=== PATIENT | female | born 1985 | race Caucasian/White ===

== ENCOUNTER 2017-04-09 14:59 | Emergency (ER) | payer MEDICAID, OTHER ==
[~2017-04-09] VITALS: Ht 165.1 cm; Wt 66.9 kg
[2017-04-09] MEDS ORDERED: TYLE325T5 PO (15:11)
[2017-04-09] MEDS ORDERED: NORCO, ANEXSIA 5/325MG TABLET (HYDROcodone/ACETAMINOPHEN) PO ONE (16:15)
[2017-04-09 17:01] LABS: ADD MANUAL DIFFER YES; MEAN CORPUSCULAR HEMOGLOBIN 30.4 pg (27.0-33.0); MEAN CORPUSCULAR HGB CONC 35.8 g/dl (32.0-36.5); PLATELET COUNT, AUTOMATED 152 k/mm3 (150-450); RED CELL DISTRIBUTION WIDTH 12.1 % (11.5-14.5); WHITE BLOOD COUNT 7.7 K/mm3 (4.0-10.0)
[2017-04-09 17:04] LABS: ANION GAP 8 MEQ/L (8-16); BLOOD UREA NITROGEN 10 MG/DL (7-18); CALCIUM LEVEL 9.2 MG/DL (8.5-10.1); CARBON DIOXIDE LEVEL 26 MEQ/L (21-32); CHLORIDE LEVEL 98 MEQ/L (98-107); CREATININE FOR GFR 0.69 MG/DL (0.55-1.02); GLOMERULAR FILTRATION RATE > 60.0 (>60); GLUCOSE, FASTING 97 MG/DL (70-105); POTASSIUM SERUM 3.4 MEQ/L (3.5-5.1); SODIUM LEVEL 132 MEQ/L (136-145)
[2017-04-09 17:22] VITALS: BP 96/57
[2017-04-09 17:22] LABS: EOSINOPHILS 2 % (0-5)
== END 2017-04-09 17:29 | disposition home or self-care (01) ==
LOC: M ED 14:59
DX: R51 Headache (principal); R53.83 Other fatigue; R10.30 Lower abdominal pain, unspecified; M54.5 Low back pain

== ENCOUNTER 2017-04-25 14:42 | Emergency (ER) | payer MEDICAID, OTHER ==
[~2017-04-25] VITALS: Ht 165.1 cm; Wt 65.0 kg
[~2017-04-25 14:42] MED LIST: TYLE325T5 PO
[2017-04-25 14:43] VITALS: BP 100/72
[2017-04-25] MEDS ORDERED: NAPR500T PO (16:09)
[2017-04-25] MEDS ORDERED: GENT3OPD OD (16:09)
[2017-04-25] MEDS ORDERED: NAPROXEN 250 MG TAB PO ONE (16:15)
[2017-04-25] MEDS ORDERED: GENTAMICIN 0.3% OPHTH SOL 5 ML BTL OU ONE (16:15)
== END 2017-04-25 17:11 | disposition home or self-care (01) ==
LOC: M ED 14:42
DX: B34.9 Viral infection, unspecified (principal); H10.33 Unspecified acute conjunctivitis, bilateral

== ENCOUNTER 2017-09-12 18:33 | Emergency (ER) | payer MEDICAID, OTHER ==
[2017-09-12] MEDS: IBUPROFEN 600 MG TAB PO ×2 (20:06)
== END 2017-09-12 22:12 | disposition home or self-care (01) ==
LOC: M ED 18:33
DX: M25.462 Effusion, left knee (principal); J45.909 Unspecified asthma, uncomplicated
CPT/HCPCS: 73564

== ENCOUNTER 2019-09-21 11:22 | Emergency (ER) | payer MEDICAID, SELFPAY ==
[~2019-09-21] VITALS: Ht 165.1 cm; Wt 72.1 kg
[~2019-09-21 11:22] MED LIST changes: +GENT0.3S36 OD; +NAPR-837 PO
--- NOTE | 2019-09-21 12:29 | REP ---
Right lower extremity Duplex Doppler venous ultrasound: Real time compression and duplex Doppler interrogation of the right lower extremity deep venous system is performed. The right common femoral, superficial femoral and popliteal veins are fully compressible with transducer pressure and demonstrate normal spontaneous and phasic flow, without evidence of deep venous thrombosis. Impression: No evidence of deep venous thrombosis of the right lower extremity femoral popliteal venous system. Note is made of a complex fluid collection posteriorly extending into the upper calf, 9.4 x 2.5 x 3.4 cm. Electronically Signed by Mono Gomez MD 09/21/2019 12:20 P
[2019-09-21 14:13] LABS: BASO # 0.1 10^3/uL (0.0-0.2); BASO % 0.5 % (0.0-1.0); EOS # 0.1 10^3/uL (0.0-0.5); EOS % 1.2 % (0.0-3.0); HEMATOCRIT 45.7 % (36.0-47.0); HEMOGLOBIN 14.8 g/dl (12.0-15.5); LYMPH # 2.2 10^3/uL (1.5-5.0); MEAN CORPUSCULAR HEMOGLOBIN 27.9 pg (27.0-33.0); MEAN CORPUSCULAR HGB CONC 32.4 g/dl (32.0-36.5); MEAN CORPUSCULAR VOLUME 86.1 fl (80.0-96.0); MONO # 0.4 10^3/uL (0.0-0.8); MONO % 3.8 % (0.0-5.0); NEUTROPHILS # 7.6 10^3/uL (1.5-8.5); NEUTROPHILS % 72.9 % (36.0-66.0); PLATELET COUNT, AUTOMATED 306 10^3/uL (150-450); RED BLOOD COUNT 5.31 10^6/uL (4.00-5.40); WHITE BLOOD COUNT 10.4 10^3/uL (4.0-10.0)
[2019-09-21 14:34] LABS: BLOOD UREA NITROGEN 10 MG/DL (7-18); C REACTIVE PROTEIN QUANTITATIV 0.79 MG/DL (0.00-0.30); CALCIUM LEVEL 9.6 MG/DL (8.5-10.1); CARBON DIOXIDE LEVEL 24 MEQ/L (21-32); CHLORIDE LEVEL 107 MEQ/L (98-107); CREATININE FOR GFR 0.77 MG/DL (0.55-1.30); GLOMERULAR FILTRATION RATE > 60.0 (>60); GLUCOSE, FASTING 89 MG/DL (70-100); POTASSIUM SERUM 4.4 MEQ/L (3.5-5.1); SODIUM LEVEL 138 MEQ/L (136-145)
[2019-09-21 14:43] LABS: ERYTHROCYTE SEDIMENTATION RATE 25 mm/hr (0-20)
[2019-09-21] MEDS ORDERED: BACT800T5 PO (15:11)
[2019-09-21 15:17] VITALS: BP 124/68
--- NOTE | 2019-09-22 18:41 | ED PDOC ---
Post-Departure Follow-Up tried to contact pt to check on status x 2. answering machine x 2. left message . AGNES MORENO PA-C Sep 22, 2019 18:41
== END 2019-09-21 15:18 | disposition home or self-care (01) ==
LOC: M ED 11:22
DX: L03.115 Cellulitis of right lower limb (principal); J45.909 Unspecified asthma, uncomplicated

== ENCOUNTER 2019-09-23 20:41 | Emergency (ER) | payer SELFPAY ==
[~2019-09-23] VITALS: Ht 165.1 cm; Wt 69.7 kg
[~2019-09-23 20:41] MED LIST changes: +BACT800T5 PO
[2019-09-23 20:42] VITALS: BP 114/75
== END 2019-09-23 21:47 | disposition home or self-care (01) ==
LOC: M ED 20:41
DX: F41.8 Other specified anxiety disorders (principal); L98.8 Other specified disorders of the skin and subcutaneous tissue; Z87.891 Personal history of nicotine dependence

== ENCOUNTER 2019-10-24 11:33 | Emergency (ER) | payer OTHER, SELFPAY ==
[~2019-10-24] VITALS: Ht 165.1 cm; Wt 65.8 kg
[2019-10-24 13:28] LABS: BASO % 0.3 % (0.0-1.0); HEMATOCRIT 45.1 % (36.0-47.0); HEMOGLOBIN 14.9 g/dl (12.0-15.5); LYMPH # 0.7 10^3/uL (1.5-5.0); MEAN CORPUSCULAR HEMOGLOBIN 28.1 pg (27.0-33.0); MEAN CORPUSCULAR VOLUME 85.1 fl (80.0-96.0); MONO # 0.1 10^3/uL (0.0-0.8); NEUTROPHILS # 7.1 10^3/uL (1.5-8.5); NEUTROPHILS % 89.4 % (36.0-66.0); PLATELET COUNT, AUTOMATED 278 10^3/uL (150-450)
[2019-10-24 14:04] VITALS: BP 121/73
== END 2019-10-24 14:05 | disposition home or self-care (01) ==
LOC: M ED 11:33
DX: R20.8 Other disturbances of skin sensation (principal); Z88.2 Allergy status to sulfonamides

== ENCOUNTER → 2019-11-04 | Outpatient (REF) | payer OTHER ==
[2019-11-04 17:25] LABS: BASO # 0.1 10^3/uL (0.0-0.2); BASO % 0.7 % (0.0-1.0); EOS # 0.1 10^3/uL (0.0-0.5); EOS % 1.8 % (0.0-3.0); HEMATOCRIT 43.1 % (36.0-47.0); HEMOGLOBIN 14.7 g/dl (12.0-15.5); LYMPH % 29.6 % (24.0-44.0); MEAN CORPUSCULAR HEMOGLOBIN 29.2 pg (27.0-33.0); MEAN CORPUSCULAR HGB CONC 34.1 g/dl (32.0-36.5); MEAN CORPUSCULAR VOLUME 85.5 fl (80.0-96.0); MONO # 0.5 10^3/uL (0.0-0.8); MONO % 7.3 % (0.0-5.0); NEUTROPHILS # 4.1 10^3/uL (1.5-8.5); NEUTROPHILS % 60.3 % (36.0-66.0); PLATELET COUNT, AUTOMATED 239 10^3/uL (150-450); RED BLOOD COUNT 5.04 10^6/uL (4.00-5.40); WHITE BLOOD COUNT 6.9 10^3/uL (4.0-10.0)
[2019-11-04 17:43] LABS: HEMOGLOBIN A1c 4.4 %
[2019-11-04 17:59] LABS: ALBUMIN 4.2 GM/DL (3.2-5.2); ALT/SGPT 14 U/L (12-78); BLOOD UREA NITROGEN 7 MG/DL (7-18); CALCIUM LEVEL 9.4 MG/DL (8.5-10.1); CARBON DIOXIDE LEVEL 28 MEQ/L (21-32); CHLORIDE LEVEL 109 MEQ/L (98-107); CHOLESTEROL LEVEL 171 MG/DL (<200); CREATININE FOR GFR 0.84 MG/DL (0.55-1.30); GLOMERULAR FILTRATION RATE > 60.0 (>60); GLUCOSE, FASTING 84 MG/DL (70-100); HDL CHOLESTEROL 45 MG/DL (>40); LDL CHOLESTEROL 106 MG/DL (<100); NON-HDL-C 126 MG/DL; POTASSIUM SERUM 3.8 MEQ/L (3.5-5.1); SODIUM LEVEL 140 MEQ/L (136-145); TOTAL PROTEIN 7.9 GM/DL (6.4-8.2); TRIGLYCERIDES LEVEL 99 MG/DL (<150)
[2019-11-04 18:02] LABS: TOTAL 25(OH) VITAMIN D 16.8 NG/ML (30.0-100.0)
== END ==
LOC: M LAB REF 16:44
PROVIDERS: ATTEND Nurse Practitioner Family
DX: Z13.9 Encounter for screening, unspecified (principal); S60.229A Contusion of unspecified hand, initial encounter; L03.115 Cellulitis of right lower limb; J02.8 Acute pharyngitis due to other specified organisms; S80.10XA Contusion of unspecified lower leg, initial encounter; Y92.9 Unspecified place or not applicable; Y93.9 Activity, unspecified; Y99.9 Unspecified external cause status

== ENCOUNTER → 2019-12-08 | Outpatient (REF) | payer OTHER ==
[2019-12-08 19:32] LABS: BASO % 0.4 % (0.0-1.0); EOS # 0.1 10^3/uL (0.0-0.5); HEMATOCRIT 43.9 % (36.0-47.0); HEMOGLOBIN 14.8 g/dl (12.0-15.5); LYMPH # 2.2 10^3/uL (1.5-5.0); LYMPH % 22.2 % (24.0-44.0); MEAN CORPUSCULAR HEMOGLOBIN 28.6 pg (27.0-33.0); MEAN CORPUSCULAR HGB CONC 33.7 g/dl (32.0-36.5); MEAN CORPUSCULAR VOLUME 84.9 fl (80.0-96.0); MONO # 0.6 10^3/uL (0.0-0.8); MONO % 5.5 % (0.0-5.0); NEUTROPHILS # 7.1 10^3/uL (1.5-8.5); NEUTROPHILS % 70.6 % (36.0-66.0); PLATELET COUNT, AUTOMATED 288 10^3/uL (150-450); RED BLOOD COUNT 5.17 10^6/uL (4.00-5.40); WHITE BLOOD COUNT 10.1 10^3/uL (4.0-10.0)
[2019-12-08 19:54] LABS: MONO REFLEX EBV COMP NEGATIVE (NEGATIVE)
[2019-12-11 00:06] LABS: EBV AB TO NUCLEAR ANTIGEN 63.7 U/mL (0.0-17.9); EBV VIRAL CAPSID AG IgM <36.0 U/mL (0.0-35.9)
== END ==
LOC: M LAB REF 19:02
PROVIDERS: ATTEND Nurse Practitioner Family
DX: J02.9 Acute pharyngitis, unspecified (principal)

== ENCOUNTER 2019-12-16 19:32 | Emergency (ER) | payer OTHER ==
[~2019-12-16] VITALS: Ht 165.1 cm; Wt 62.3 kg
[2019-12-16] MEDS ORDERED: VITA50005 (19:38)
[2019-12-16] MEDS ORDERED: CEPH500C (19:38)
[2019-12-16] MEDS ORDERED: hydrOXYzine 25 MG TAB PO STA (20:03)
[2019-12-16 20:30] LABS: BASO # 0.1 10^3/uL (0.0-0.2); BASO % 0.7 % (0.0-1.0); EOS # 0.1 10^3/uL (0.0-0.5); EOS % 1.8 % (0.0-3.0); HEMATOCRIT 43.9 % (36.0-47.0); HEMOGLOBIN 15.3 g/dl (12.0-15.5); LYMPH # 2.1 10^3/uL (1.5-5.0); LYMPH % 29.8 % (24.0-44.0); MEAN CORPUSCULAR HEMOGLOBIN 29.6 pg (27.0-33.0); MEAN CORPUSCULAR HGB CONC 34.9 g/dl (32.0-36.5); MEAN CORPUSCULAR VOLUME 84.9 fl (80.0-96.0); MONO # 0.4 10^3/uL (0.0-0.8); MONO % 5.9 % (0.0-5.0); NEUTROPHILS # 4.4 10^3/uL (1.5-8.5); NEUTROPHILS % 61.7 % (36.0-66.0); PLATELET COUNT, AUTOMATED 287 10^3/uL (150-450); RED BLOOD COUNT 5.17 10^6/uL (4.00-5.40); WHITE BLOOD COUNT 7.2 10^3/uL (4.0-10.0)
[2019-12-16 21:07] LABS: BLOOD UREA NITROGEN 9 MG/DL (7-18); CARBON DIOXIDE LEVEL 29 MEQ/L (21-32); CHLORIDE LEVEL 107 MEQ/L (98-107); CK-MB VALUE MASS < 1.0 NG/ML (<3.6); CPK CREATINE PHOSPHOKINASE 79 U/L (26-192); CREATININE FOR GFR 0.81 MG/DL (0.55-1.30); GLOMERULAR FILTRATION RATE > 60.0 (>60); GLUCOSE, FASTING 100 MG/DL (70-100); MAGNESIUM LEVEL 2.2 MG/DL (1.8-2.4); MB/CK RELATIVE INDEX 1.27 (< OR =4); POTASSIUM SERUM 3.8 MEQ/L (3.5-5.1); SODIUM LEVEL 138 MEQ/L (136-145); TROPONIN I < 0.02 NG/ML (< 0.10)
[2019-12-16] MEDS ORDERED: HYDR-3363 PO (21:31)
[2019-12-16 21:43] VITALS: BP 134/79
--- NOTE | 2019-12-17 14:27 | ECGEPIP ---
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
== END 2019-12-16 21:47 | disposition home or self-care (01) ==
LOC: M ED 19:32
DX: F41.1 Generalized anxiety disorder (principal); J45.909 Unspecified asthma, uncomplicated; Z88.1 Allergy status to other antibiotic agents; Z88.2 Allergy status to sulfonamides

== ENCOUNTER → 2019-12-29 | Outpatient (REF) | payer OTHER ==
[~2019-12-29] MED LIST changes: +CEPH500C; +HYDR-3363 PO; +VITA50005
[2019-12-29 14:10] LABS: BASO # 0.1 10^3/uL (0.0-0.2); BASO % 0.6 % (0.0-1.0); EOS # 0.2 10^3/uL (0.0-0.5); EOS % 2.6 % (0.0-3.0); HEMATOCRIT 40.1 % (36.0-47.0); HEMOGLOBIN 13.7 g/dl (12.0-15.5); MEAN CORPUSCULAR HEMOGLOBIN 29.8 pg (27.0-33.0); MEAN CORPUSCULAR HGB CONC 34.2 g/dl (32.0-36.5); MEAN CORPUSCULAR VOLUME 87.4 fl (80.0-96.0); MONO # 0.6 10^3/uL (0.0-0.8); MONO % 7.3 % (0.0-5.0); NEUTROPHILS # 4.4 10^3/uL (1.5-8.5); NEUTROPHILS % 53.1 % (36.0-66.0); PLATELET COUNT, AUTOMATED 243 10^3/uL (150-450); RED BLOOD COUNT 4.59 10^6/uL (4.00-5.40); WHITE BLOOD COUNT 8.2 10^3/uL (4.0-10.0)
[2019-12-29 14:25] LABS: ALBUMIN 3.7 GM/DL (3.2-5.2); ALT/SGPT 11 U/L (12-78); BILIRUBIN,TOTAL 0.9 MG/DL (0.2-1.0); BLOOD UREA NITROGEN 12 MG/DL (7-18); CALCIUM LEVEL 9.1 MG/DL (8.5-10.1); CARBON DIOXIDE LEVEL 28 MEQ/L (21-32); CHLORIDE LEVEL 107 MEQ/L (98-107); CHOLESTEROL LEVEL 152 MG/DL (<200); GLOMERULAR FILTRATION RATE > 60.0 (>60); GLUCOSE, FASTING 83 MG/DL (70-100); HDL CHOLESTEROL 51 MG/DL (>40); LDL CHOLESTEROL 84 MG/DL (<100); NON-HDL-C 101 MG/DL; POTASSIUM SERUM 3.9 MEQ/L (3.5-5.1); SODIUM LEVEL 139 MEQ/L (136-145); TOTAL PROTEIN 7.2 GM/DL (6.4-8.2); TRIGLYCERIDES LEVEL 84 MG/DL (<150)
[2019-12-29 14:26] LABS: TOTAL 25(OH) VITAMIN D 47.6 NG/ML (30.0-100.0)
== END ==
LOC: M LAB REF 12:47
PROVIDERS: ATTEND Nurse Practitioner Family
DX: Z13.9 Encounter for screening, unspecified (principal); E78.5 Hyperlipidemia, unspecified; E55.9 Vitamin D deficiency, unspecified

== ENCOUNTER → 2020-01-24 | Outpatient (REF) | payer OTHER ==
[2020-01-24 12:27] LABS: RHEUMATOID FACTOR QUANT < 10.0 IU/ML (<15.0); URIC ACID 2.9 MG/DL (2.6-6.0)
[2020-01-25 14:11] LABS: ANTINUCLEAR ANTIBODIES DIRECT Negative (Negative)
== END ==
LOC: M LAB REF 11:58
PROVIDERS: ATTEND Nurse Practitioner Family
DX: J02.9 Acute pharyngitis, unspecified (principal); R20.8 Other disturbances of skin sensation; E55.9 Vitamin D deficiency, unspecified; J02.0 Streptococcal pharyngitis; Z13.9 Encounter for screening, unspecified

== ENCOUNTER 2020-02-16 22:18 | Emergency (ER) | payer OTHER ==
[~2020-02-16] VITALS: Ht 165.1 cm; Wt 64.8 kg
[2020-02-16 22:19] VITALS: BP 131/81
== END 2020-02-16 23:13 | disposition home or self-care (01) ==
LOC: M ED 22:18
DX: F41.1 Generalized anxiety disorder (principal); Z88.2 Allergy status to sulfonamides; J45.909 Unspecified asthma, uncomplicated; Z79.899 Other long term (current) drug therapy

== ENCOUNTER → 2020-03-01 | Outpatient (CLI) | payer OTHER ==
[~2020-03-01] MED LIST changes: +LILL1TAB PO
--- NOTE | 2020-03-01 16:17 | REP ---
KNEE: REASON: Pain. COMPARISON: 09/12/2017 FINDINGS: The compartments are symmetric and relatively well maintained. There is no acute fracture or destructive osseous lesion. No change. Any swelling seen before has resolved. Electronically Signed by Brady Deluca DO 03/01/2020 05:07 P
== END ==
LOC: M RAD 13:28
PROVIDERS: ATTEND Nurse Practitioner Family
DX: M25.562 Pain in left knee (principal)

== ENCOUNTER → 2020-03-01 | Outpatient (CLI) | payer OTHER ==
--- NOTE | 2020-03-01 13:51 | REP ---
REASON: History of periodontal abscess having neck pain and swelling. Ultrasonography of the neck soft tissues shows multiple (too numerous to count or individually assess) solid nodules ranging in size from short access dimension of 5 mm to a long axis dimension of 1.9 cm. The solid nodules, for the most part appear to have reniform shape, peripheral hypo-echogenicity, and central echogenicity although the larger nodules are more oval in shape. IMPRESSION: Lymphadenopathy is suspected contrast enhanced neck CT is recommended as it remains the gold standard for imaging neck masses and lymphadenopathy.
== END ==
LOC: M WHC 09:59
PROVIDERS: ATTEND Family Medicine
DX: J36 Peritonsillar abscess (principal); R22.1 Localized swelling, mass and lump, neck

== ENCOUNTER → 2020-03-23 | Outpatient (REF) | payer OTHER ==
[~2020-03-23] MED LIST changes: -LILL1TAB PO
== END ==
LOC: M LAB REF 15:30
PROVIDERS: ATTEND Nurse Practitioner Family
DX: Z12.4 Encounter for screening for malignant neoplasm of cervix (principal)

== ENCOUNTER → 2020-04-03 | Outpatient (CLI) | payer OTHER ==
[~2020-04-03] MED LIST changes: +ISOVUE-370 76% 100ML VIAL As Ordered ONE
--- NOTE | 2020-04-03 16:54 | REPVR ---
PROCEDURE INFORMATION: Exam: CT Neck With Contrast Exam date and time: 04/03/2020 4:28 PM Age: 34 years old Clinical indication: Mass, lump, or swelling in neck; Patient HX: Anterior general swelling; Additional info: Localized swelling/mass/lump TECHNIQUE: Imaging protocol: Computed tomography images of the neck with intravenous contrast. Radiation optimization: All CT scans at this facility use at least one of these dose optimization techniques: automated exposure control; mA and/or kV adjustment per patient size (includes targeted exams where dose is matched to clinical indication); or iterative reconstruction. Contrast material: ISOVUE 370; Contrast volume: 75 ml; Contrast route: INTRAVENOUS (IV); COMPARISON: US SOFT TISSUE HEAD AND NECK 03/01/2020 10:14 AM FINDINGS: Nasopharynx: Unremarkable. Oropharynx: Unremarkable. No significant tonsillar enlargement. Hypopharynx: Unremarkable. Larynx: Unremarkable. Normal epiglottis. Retropharyngeal space: Normal. No retropharyngeal abscess. Submandibular/Parotid glands: Normal. Glands are normal in size. Thyroid: Normal. No enlarged or calcified nodules. Lymph nodes: There are multiple small shotty lymph nodes in the anterior and posterior cervical triangles bilaterally, but these are small and there is no significant lymphadenopathy seen in the neck or upper chest. Trachea: Visualized trachea is unremarkable. Lungs: Unremarkable as visualized. Bones/joints: Unremarkable. No acute fracture. Soft tissues: No significant soft tissue abnormality is seen in the neck. IMPRESSION: 1. No significant soft tissue abnormality is seen in the neck. 2. There are multiple small shotty lymph nodes in the anterior and posterior cervical triangles bilaterally, but these are small and there is no significant lymphadenopathy seen in the neck or upper chest. Electronically signed by: Cayden Romano On 04/03/2020 16:54:04 PM
== END ==
LOC: M RAD 16:06
PROVIDERS: ATTEND Family Medicine
DX: R22.1 Localized swelling, mass and lump, neck (principal)
CPT/HCPCS: 70491; Q9967

== ENCOUNTER → 2020-07-11 | Outpatient (REF) | payer OTHER ==
[~2020-07-11] MED LIST changes: -ISOVUE-370 76% 100ML VIAL As Ordered ONE
== END ==
LOC: M SFHCWAGY 17:02
PROVIDERS: ATTEND Advanced Practice Midwife
DX: Z12.4 Encounter for screening for malignant neoplasm of cervix (principal); Z01.419 Encounter for gynecological examination (general) (routine) without abnormal findings

== ENCOUNTER → 2020-09-06 | Outpatient (CLI) | payer OTHER ==
[2020-09-06 13:16] LABS: FREE T4 1.11 NG/DL (0.76-1.46); THYROID STIMULATING HORMONE 0.874 uIU/ML (0.358-3.740)
== END ==
LOC: M LAB 12:01
PROVIDERS: ATTEND Nurse Practitioner Family
DX: E04.2 Nontoxic multinodular goiter (principal)

== ENCOUNTER → 2020-09-12 | Outpatient (REF) | payer OTHER ==
[~2020-09-12] MED LIST changes: +LILL1TAB PO
== END ==
LOC: M LAB REF 17:03
PROVIDERS: ATTEND Internal Medicine Endocrinology, Diabetes & Metabolism
DX: E04.1 Nontoxic single thyroid nodule (principal)

== ENCOUNTER 2020-10-06 20:34 | Emergency (ER) | payer OTHER ==
[~2020-10-06] VITALS: Ht 165.1 cm; Wt 71.6 kg
[~2020-10-06 20:34] MED LIST changes: -LILL1TAB PO
[2020-10-06] MEDS ORDERED: LILL1TAB PO (20:46)
[2020-10-06 22:18] VITALS: BP 121/73
== END 2020-10-06 22:21 | disposition home or self-care (01) ==
LOC: M ED 20:34
DX: R09.89 Other specified symptoms and signs involving the circulatory and respiratory systems (principal); J45.909 Unspecified asthma, uncomplicated; Z85.850 Personal history of malignant neoplasm of thyroid; Z79.3 Long term (current) use of hormonal contraceptives; Z88.1 Allergy status to other antibiotic agents; Z88.2 Allergy status to sulfonamides

== ENCOUNTER 2020-12-08 11:07 | Emergency (ER) | payer OTHER ==
[~2020-12-08] VITALS: Ht 165.1 cm; Wt 59.1 kg
[~2020-12-08 11:07] MED LIST changes: +LILL1TAB PO
[2020-12-08] MEDS ORDERED: NITR100C2 PO (11:40)
[2020-12-08] MEDS ORDERED: NS 1,000 ML IV ONE (11:45)
[2020-12-08 11:46] LABS: BASO # 0.1 10^3/uL (0.0-0.2); BASO % 1.1 % (0.0-1.0); EOS # 0.9 10^3/uL (0.0-0.5); EOS % 11.5 % (0.0-3.0); HEMATOCRIT 42.6 % (36.0-47.0); HEMOGLOBIN 14.9 g/dl (12.0-15.5); LYMPH # 2.2 10^3/uL (1.5-5.0); LYMPH % 27.7 % (24.0-44.0); MEAN CORPUSCULAR HEMOGLOBIN 29.5 pg (27.0-33.0); MEAN CORPUSCULAR VOLUME 84.4 fl (80.0-96.0); MONO # 0.6 10^3/uL (0.0-0.8); MONO % 7.8 % (2.0-8.0); NEUTROPHILS # 4.2 10^3/uL (1.5-8.5); NEUTROPHILS % 51.7 % (36.0-66.0); PLATELET COUNT, AUTOMATED 259 10^3/uL (150-450); RED BLOOD COUNT 5.05 10^6/uL (4.00-5.40); WHITE BLOOD COUNT 8.1 10^3/uL (4.0-10.0)
[2020-12-08] MEDS ORDERED: ISOVUE-370 76% 100ML VIAL As Ordered ONE (12:12)
[2020-12-08 12:35] LABS: ALBUMIN 4.4 GM/DL (3.2-5.2); BILIRUBIN,DIRECT 0.2 MG/DL (0.0-0.2); TOTAL PROTEIN 7.8 GM/DL (6.4-8.2)
--- NOTE | 2020-12-08 12:50 | REP ---
INDICATION: abd/flank pain--diffuse. dysuria-thyroid cancer. COMPARISON: None. TECHNIQUE: Abdomen/pelvis CT with IV contrast, without bowel CONTRAST: IV contrast, no bowel contrast. FINDINGS: Within the visualized lower lung abbott there is a 7 mm nodule partially imaged in the superior most slice, likely in the anterior segment of the right lower lobe. There are no infiltrates or pleural effusions. Follow-up chest CT is recommended for further evaluation. The hepatic parenchyma, gallbladder, pancreas and spleen are unremarkable. The adrenals are unremarkable. There are no renal calculi. There is no hydronephrosis. There is no perinephric stranding. The renal cortices enhance normally. No renal solid or cystic masses are identified. No CT evidence of pyelonephritis. The abdominal aorta is unremarkable. There is no periaortic adenopathy or mass. There is no bowel distention or obstruction. The mesentery is unremarkable. Pelvis: The appendix is unremarkable. There is an involuting follicle in the right adnexa measuring up to 18 mm. The right adnexa is unremarkable. There is no pelvic ascites. The bladder is unremarkable. The pelvic bowel loops are unremarkable. IMPRESSION: There is an 18 mm involuting follicle in the right adnexa. The kidneys are unremarkable by CT. The bladder is unremarkable by CT. There is no ascites, adenopathy or mass. No bowel distention or obstruction. There is a 7 mm nodule partially images and is superior most image in the anterior segment of the right lower lobe. I would recommend chest CT for follow up of this finding. <Electronically signed by Mono Rausch > 12/08/20 [id number]
[2020-12-08] MEDS ORDERED: KETOROLAC 30 MG/ML 1ML VIAL IV ONE (13:45)
[2020-12-08] MEDS ORDERED: cefTRIAXone SOD 500 MG in D5W MINI-BAG PLUS 50 ML IV ONE (15:20)
[2020-12-08] MEDS ORDERED: KETO10TAB PO (15:22)
[2020-12-08] MEDS ORDERED: DOXY-350 PO (15:22)
[2020-12-08 16:02] VITALS: BP 107/62
[2020-12-08 16:13] LABS: CHLAMYDIA DNA AMPLIFICATION NEGATIVE (NEGATIVE); GC DNA AMPLIFICATION NEGATIVE (NEGATIVE)
--- NOTE | 2020-12-11 12:29 | ED PDOC ---
Post-Departure Follow-Up ct abd/p faxed to t[facility]cker for fu Jolanta Shaver MD Dec 11, 2020 12:29
== END 2020-12-08 16:36 | disposition home or self-care (01) ==
LOC: M ED 11:07
DX: N73.9 Female pelvic inflammatory disease, unspecified (principal); Z79.899 Other long term (current) drug therapy; Z88.1 Allergy status to other antibiotic agents; Z88.2 Allergy status to sulfonamides
CPT/HCPCS: 36415; 74177; 80047; 80076; 81001; 83690; 84702; 85025; 87086; 87210; 87491; 87591; 96361; 96365; 96375; 99284; J0696; J1885; Q9967

== ENCOUNTER 2020-12-26 23:54 | Emergency (ER) | payer OTHER ==
[~2020-12-26] VITALS: Ht 165.1 cm; Wt 66.9 kg
[~2020-12-26 23:54] MED LIST changes: +DOXY-350 PO; +KETO10TAB PO; +NITR100C2 PO
[2020-12-27] MEDS ORDERED: ALBU8.5H INH (00:03)
[2020-12-27] MEDS ORDERED: guaiFENesin/CODEINE SYRUP 5 ML UDC PO ONE (01:40)
[2020-12-27] MEDS ORDERED: predniSONE 20 MG TAB PO ONE (01:40)
[2020-12-27] MEDS ORDERED: BENZONATATE 100 MG CAP PO ONE (01:40)
[2020-12-27 01:44] VITALS: BP 113/63
[2020-12-27] MEDS ORDERED: PRED20TA PO (02:20)
[2020-12-27] MEDS ORDERED: GUAI1SOL7 PO (02:20)
[2020-12-27] MEDS ORDERED: TESS100C PO (02:20)
--- NOTE | 2020-12-27 02:28 | REPVR ---
PROCEDURE INFORMATION: Exam: XR Chest Exam date and time: 12/27/2020 1:32 AM Age: 35 years old Clinical indication: Shortness of breath TECHNIQUE: Imaging protocol: XR of the chest. Views: 2 views. COMPARISON: No relevant prior studies available. FINDINGS: Lungs: Unremarkable. No consolidation. Pleural spaces: Unremarkable. No pleural effusion. No pneumothorax. Heart/Mediastinum: Unremarkable. No cardiomegaly. Bones/joints: Unremarkable. IMPRESSION: Negative chest. Electronically signed by: Tony Baig On 12/27/2020 02:29:19 AM
== END 2020-12-27 02:41 | disposition home or self-care (01) ==
LOC: M ED 23:54
DX: J45.901 Unspecified asthma with (acute) exacerbation (principal); Z88.1 Allergy status to other antibiotic agents; Z88.2 Allergy status to sulfonamides; Z85.850 Personal history of malignant neoplasm of thyroid

== ENCOUNTER → 2021-02-16 | Outpatient (CLI) | payer OTHER ==
[~2021-02-16] MED LIST changes: +ALBU8.5H INH; +GUAI1SOL7 PO; +PRED20TA PO; +TESS100C PO
== END ==
LOC: M LABSMTC 13:23
PROVIDERS: ATTEND Family Medicine
DX: Z20.822 Contact with and (suspected) exposure to COVID-19 (principal)
CPT/HCPCS: C9803; U0003

== ENCOUNTER → 2021-03-23 | Outpatient (CLI) | payer OTHER ==
[~2021-03-23] MED LIST changes: +ERGO500029; -VITA50005
[2021-03-23 17:24] LABS: FREE T4 0.99 NG/DL (0.76-1.46); THYROID STIMULATING HORMONE 3.34 uIU/ML (0.358-3.740)
== END ==
LOC: M LAB 15:39
PROVIDERS: ATTEND Nurse Practitioner Family
DX: E04.2 Nontoxic multinodular goiter (principal)

== ENCOUNTER 2021-04-19 02:03 | Emergency (ER) | payer OTHER ==
[~2021-04-19] VITALS: Ht 165.1 cm; Wt 67.9 kg
[2021-04-19 05:47] LABS: ALBUMIN 4.5 GM/DL (3.2-5.2); ALT/SGPT 21 U/L (12-78); BILIRUBIN,TOTAL 0.5 MG/DL (0.2-1.0); BLOOD UREA NITROGEN 10 MG/DL (7-18); CALCIUM LEVEL 9.4 MG/DL (8.5-10.1); CARBON DIOXIDE LEVEL 25 MEQ/L (21-32); CHLORIDE LEVEL 108 MEQ/L (98-107); CK-MB VALUE MASS < 1.0 NG/ML (<3.6); CPK CREATINE PHOSPHOKINASE 174 U/L (26-192); CREATININE FOR GFR 0.69 MG/DL (0.55-1.30); FREE T4 0.94 NG/DL (0.76-1.46); GLOMERULAR FILTRATION RATE > 60.0 (>60); GLUCOSE, FASTING 82 MG/DL (70-100); HCG, SERUM QUANTITATIVE < 1.0 MIU/ML; MB/CK RELATIVE INDEX 0.57 (< OR =4); POTASSIUM SERUM 4.4 MEQ/L (3.5-5.1); SODIUM LEVEL 140 MEQ/L (136-145); TOTAL PROTEIN 8.5 GM/DL (6.4-8.2); TROPONIN I < 0.02 NG/ML (< 0.10)
[2021-04-19 06:07] LABS: BASO # 0.1 10^3/uL (0.0-0.2); BASO % 0.6 % (0.0-1.0); EOS # 0.3 10^3/uL (0.0-0.5); EOS % 2.7 % (0.0-3.0); HEMATOCRIT 42.2 % (36.0-47.0); HEMOGLOBIN 14.4 g/dl (12.0-15.5); LYMPH # 3.5 10^3/uL (1.5-5.0); LYMPH % 37.6 % (24.0-44.0); MEAN CORPUSCULAR HEMOGLOBIN 29.4 pg (27.0-33.0); MEAN CORPUSCULAR HGB CONC 34.1 g/dl (32.0-36.5); MEAN CORPUSCULAR VOLUME 86.1 fl (80.0-96.0); MONO # 0.6 10^3/uL (0.0-0.8); MONO % 5.9 % (2.0-8.0); PLATELET COUNT, AUTOMATED 271 10^3/uL (150-450); WHITE BLOOD COUNT 9.4 10^3/uL (4.0-10.0)
[2021-04-19] MEDS ORDERED: ISOVUE-370 76% 100ML VIAL As Ordered ONE (06:53)
[2021-04-19 08:33] LABS: CK-MB VALUE MASS < 1.0 NG/ML (<3.6); CPK CREATINE PHOSPHOKINASE 111 U/L (26-192); TROPONIN I < 0.02 NG/ML (< 0.10)
[2021-04-19 09:02] LABS: THYROGLOBULIN ANTIBODY < 15.0 U/ML (<60.0)
[2021-04-19 09:10] VITALS: BP 120/69
[2021-04-20 10:12] LABS: THRYOGLOBULIN ANTIBODIES (ATA) < 1.0 IU/mL (0.0-0.9); THYROGLOBULIN QUANTITATIVE 6.9 ng/mL (1.5-38.5)
== END 2021-04-19 09:32 | disposition home or self-care (01) ==
LOC: M ED 02:03
DX: R07.9 Chest pain, unspecified (principal); J45.909 Unspecified asthma, uncomplicated; Z85.850 Personal history of malignant neoplasm of thyroid; Z88.1 Allergy status to other antibiotic agents; Z88.2 Allergy status to sulfonamides
CPT/HCPCS: 36415; 71045; 71275; 80053; 82330; 82550; 82553; 84439; 84443; 84702; 85025; 85379; 86800; 93005; 93041; 94760; 99285; Q9967

== ENCOUNTER 2021-05-07 20:58 | Emergency (ER) | payer OTHER ==
[~2021-05-07] VITALS: Ht 165.1 cm; Wt 69.3 kg
[2021-05-07 20:58] VITALS: BP 106/64
== END 2021-05-08 01:16 | disposition left against medical advice (07) ==
LOC: M ED 20:58
DX: Z53.29 Procedure and treatment not carried out because of patient's decision for other reasons (principal)

== ENCOUNTER 2021-06-19 22:09 | Emergency (ER) | payer OTHER ==
[~2021-06-19] VITALS: Ht 165.1 cm; Wt 68.0 kg
[2021-06-19 22:10] VITALS: BP 122/67
== END 2021-06-20 01:18 | disposition left against medical advice (07) ==
LOC: M ED 22:09
DX: Z53.29 Procedure and treatment not carried out because of patient's decision for other reasons (principal)

== ENCOUNTER → 2021-07-06 | Outpatient (CLI) | payer OTHER ==
[2021-07-06 11:21] LABS: FREE T4 0.87 NG/DL (0.76-1.46); THYROID STIMULATING HORMONE 2.97 uIU/ML (0.358-3.740)
== END ==
LOC: M PLALAB 08:46
PROVIDERS: ATTEND Nurse Practitioner Family
DX: E04.2 Nontoxic multinodular goiter (principal)

== ENCOUNTER 2021-08-04 01:40 | Emergency (ER) | payer OTHER ==
[~2021-08-04] VITALS: Ht 165.1 cm; Wt 63.6 kg
[2021-08-04 01:41] VITALS: BP 117/74
[2021-08-04 04:53] LABS: MONO SCRN NEGATIVE (NEGATIVE)
--- OUTSIDE RECORDS SUMMARY | 2021-08-04 05:29 | CCD | Continuity of Care Document ---
Author Author Priyanka LAYTON [employer] Organization Unknown Address [address] [address] Phone [phone] Care Team Providers Care Senior Partner Name Role Phone Jovanny Neelam Dillan RAEP AUTM Problems Description No Information Available Social History Type Date Description Comments Sex Unknown Tobacco Use Start: Unknown Never Smoked Cigarettes Smoking Status Reviewed: 06/19/21 Never Smoked Cigarettes ETOH Use Never used alcohol Allergies, Adverse Reactions, Alerts Active Allergies Criticality Reaction | Severity Comments Date sulfa drugs Unable to assess criticality 08/29/2020 Medications Active Medications SIG Qnty Indications Ordering Provide r Date Lillow 0.15-30mg-mcg Tablets 1 by mouth every day Ondina Layton NP 0 Immunizations Description No Information Available Vital Signs Date Vital Result Comment 06/19/2021 11:47am BP Systolic 126 mmHg BP Diastolic 84 mmHg Heart Rate 72 /min Height 63 inches 5'3" Weight 161.12 lb BMI (Body Mass Index) 28.5 kg/m2 O2 % BldC Oximetry 99 % 04/18/2021 3:04pm BP Systolic 114 mmHg BP Diastolic 64 mmHg Heart Rate 66 /min Height 63 inches 5'3" Weight 156.31 lb BMI (Body Mass Index) 27.7 kg/m2 O2 % BldC Oximetry 97 % Results Test Acquired Date Facility Test Result H/L Range Note FT4&TSH Panel 03/23/2021 [facility] ntr [address] [place] [address] [phone] - Thyroid Stimulating Hormone 3.340 uIU/ML Normal 0.358- 3.740 Free T4 0.99 ng/dL Normal 0.76-1.46 Procedures Date Code Description Status 06/19/2021 88433 Office/Outpatient Established Mo d MDM 30-39 Min Completed 04/18/2021 74912 Office/Outpatient Established Mo d MDM 30-39 Min Completed Medical Devices Description No Information Available Encounters Type Date Location Provider Dx Diagnosis Office Visit 06/19/2021 11:45a DR. Tabitha Layton, N P E04.2 Nontoxic multinodular goiter Office Visit 04/18/2021 3:30p DR. Tabitha Layton, Yolande P E04.2 Nontoxic multinodular goiter Assessments Date Code Description Provider 06/19/2021 E04.2 Nontoxic multinodular goiter Ricky Layton NP 04/18/2021 E04.2 Nontoxic multinodular goiter Ricky Layton NP Plan of Treatment 06/19/2021 - Ondina Layton NP* E04.2 Nontoxic multinodular goiter* New Labs:* FT4&TSH Panel, Scheduled: 06/19/21 * FT4&TSH Panel, Scheduled: 08/15/21 * Comments:* Pt here for evaluation of 8 month c/o pain in neck and trouble swallowing. Was seen by ENT- no findings. Explained that there are 2 issues with the thyroid both structure and function. Labs done 12/16/2019- TSH: 1.5291209/06/2020: TSH=0.8, , FT4 = 1.1 09/12/2020- in office ultrasound guided biopsy performed by Dr Cervantes- [facility] - atypia.Pathology sent to [facility]- confirmed atypical cells. 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 [id number] Stage 1No SANTAMARIA recommended per surgical noteExcellent response is supp Tg<30Labs done 03/01/21- TSH= 2.500Labs done 03/23/21- TSH= 3.340, FT4= 0.99Facial, hands and feet tinglingHad tremor left hand occasionally. Questioned whether parathyroid was involvedLabs done 04/19/21- TSH= 5.490, FT4= 0.94, TGQN= 6.9, TGAB= <1.0Ionized calcium level = 4.8- normal Pt's TSH increasing with each visit.Will recheck TSH, FT4 todayWill treat based on results. * Follow up:* RTO 2 months CBF U/S at f/u Functional Status Description No Information Available Mental Status Description No Information Available Referrals Description No Information Available
--- OUTSIDE RECORDS SUMMARY | 2021-08-04 05:29 | CCD | Continuity of Care Document ---
Author Author Priyanka LAYTON [employer] Organization Unknown Address [address] [address] Phone [phone] Care Team Providers Care Manager Change Name Role Phone Jovanny Neelam Dillan RAEP AUTM [phone] Problems Description No Information Available Social History Type Date Description Comments Sex Unknown Tobacco Use Start: Unknown Never Smoked Cigarettes Smoking Status Reviewed: 06/19/21 Never Smoked Cigarettes ETOH Use Never used alcohol Allergies and adverse reactions Active Allergies Criticality Reaction | Severity Comments [...] Test Result H/L Range Note FT4&TSH Panel 07/06/2021 [facility] ntr [address] [place] [address] ([phone] - Thyroid Stimulating Hormone 2.970 uIU/ML Normal 0.358- 3.740 Free T4 0.87 ng/dL Normal 0.76-1.46 FT4&TSH Panel 03/23/2021 [facility] n[facility] [address] [place] [address] (315)- - Thyroid Stimulating Hormone 3.340 uIU/ML Normal 0.358- 3.740 Free T4 0.99 ng/dL Normal 0.76-1.46 Procedures Date Code Description Status 06/19/2021 20321 Office/Outpatient Established Mo d MDM 30-39 Min Completed 04/18/2021 47140 Office/Outpatient Established Mo d MDM 30-39 Min Completed Medical Devices Description No Information Available Encounters Type Date Location Provider Dx Diagnosis Office Visit 06/19/2021 11:45a DR. Tabitha Layton, Yolande P E04.2 Nontoxic multinodular goiter Office Visit 04/18/2021 3:30p Yolande Jara P E04.2 Nontoxic multinodular goiter Assessments Date Code Description Provider 06/19/2021 E04.2 Nontoxic multinodular goiter Ricky Layton NP 04/18/2021 E04.2 Nontoxic multinodular goiter Ricky Layton NP Plan of Treatment Future Appointment(s):* 09/04/2021 1:30 pm - Tabitha Sandy MD at DR. Tabitha Sandy 06/19/2021 - Ondina Layton NP* E04.2 Nontoxic multinodular goiter* New Labs:* FT4&TSH Panel, Scheduled: 08/15/21 * Comments:* Pt here for evaluation of 8 month c/o pain in neck and trouble swallowing. Was seen by ENT- no findings. Explained that there are 2 issues with the thyroid both structure and function. Labs done 12/16/2019- TSH: 1.5644509/06/2020: TSH=0.8, , FT4 = 1.1 09/12/2020- in office ultrasound guided biopsy performed by Dr Mahmoodology- [facility] - atypia.Pathology sent to [facility]- confirmed atypical cells. Afirma for [...] variant- measuring 1.1 x 1.1 x 1.0cm. [id number]- Stage 1No SANTAMARIA recommended per surgical noteExcellent response is supp Tg<30Labs done 03/01/21- TSH= 2.500Labs done 03/23/21- TSH= 3.340, FT4= 0.99Facial, hands and feet tinglingHad tremor left hand occasionally. Questioned whether parathyroid was involvedLabs done 04/19/21- TSH= 5.490, FT4= 0.94, TGQN= 6.9, TGAB= <1.0Ionized calcium level = 4.8- normal Pt's TSH increasing with each visit.Will recheck TSH, FT4 todayWill treat based on results. RTO 2 months * Follow up:* RTO 2 months CBF U/S at f/u Functional Status Description No Information Available Mental Status Description No Information Available Referrals Description No Information Available
--- OUTSIDE RECORDS SUMMARY | 2021-08-04 05:29 | CCD ---
Author Organization Unknown Address [address] [place] [address] Phone [phone] Care Team Providers [employer] Worker Name Role Phone LETTY LEAVITT MD 2 [phone] Allergies Code Code System Name Reaction Severity Status Onset Sulfa (Sulfonamide Antibiotics) Active Notes: SULFA ANTIBIOTICS Medications Name Status Start Date Stop Date acetaminophen 300 mg-codeine 30 mg tablet Completed 08/17/2020 albuterol sulfate 2 puffs four times a day as needed for wheezing Active Not available benzonatate 100 mg capsule TAKE ONE CAPSULE BY MOUTH THREE TIMES A DAY FOR COUGH Active Not available cefuroxime axetil 500 mg tablet Completed 08/17/2020 doxycycline hyclate 100 mg capsule Take 1 capsule twice a day by oral route. Active Not available doxycycline monohydrate 100 mg capsule Completed 01/25/2021 Guaiatussin AC 10 mg-100 mg/5 mL oral li quid TAKE 10ML BY MOUTH AT BEDTIME NEEDED FOR COUGH MAXIMUM DAILY DOSE 30ML Active Not available hydroxyzine HCl 25 mg tablet Completed 11/2019 ibuprofen 600 mg tablet Active Not avai lable ibuprofen 800 mg tablet Completed 08/17/20 20 ketorolac 10 mg tablet Completed Raisa (28) 0.15 mg-0.03 mg tablet TAKE ONE TABLET BY MOUTH EVERY DAY Active Not available nitrofurantoin monohydrate/macrocrystals 100 mg capsule TAKE ONE CAPSULE BY MOUTH TWICE A DAY FOR 7 DAYS Completed 01/25/2021 phenazopyridine 200 mg tablet TAKE ONE TABLET BY MOUTH THREE TIMES A DAY FOR 2 DAYS Completed 01/25/2021 prednisone 20 mg tablet TAKE TWO TABLETS BY MOUTH EVERY DAY Completed Vitamin D2 1,250 mcg (50,000 unit) capsule Completed 01/25/2021 Problems Name Status Onset Date Source Acute Pharyngitis Active 10/19/2019 History Cellulitis of Right Lower Limb Active 10/19/2019 H istory Clinical Finding Active 10/19/2019 History Traumatic or Non-traumatic Injury Active 10/19/2019 History Disorder of Lower Extremity Active 10/19/2019 Hist ory Streptococcal Sore Throat Active 10/27/2019 Histor y Vitamin D Deficiency Active 11/06/2019 History Patient Asked to Attend Active 11/18/2019 History Procedure by Method Active 11/18/2019 History Under Immunized Active 11/18/2019 History Finding of Sensation by Site Active 11/18/2019 His tory Pharyngeal Finding Active 12/08/2019 History Hyperlipidemia Active 12/29/2019 History Emotional State Finding Active 01/06/2020 History Finding of Knee Region Active 01/06/2020 History Adjustment Disorder Active 01/31/2020 History Pain in Left Knee Active 01/31/[address] Concept Active 01/31/2020 History Fractured Dental Restorative Material Active 02/17/2020 History Dental Caries on Smooth Surface Penetrating into Pulp Active 02/17/2020 History Peritonsillar Abscess Active 02/24/2020 History Localized Swelling, Mass and Lump, Neck Active 03/02/20 20 History Screening for Malignant Neoplasm of Cervix Active 03/23 History Procedures Date Name Performed by 01/24/2021 Thyroidectomy Information not avai lable Results Lab Results Date Name Specimen Result Interpretation Description Value Range Status Address 04/19/2021 Ionized Calcium Normal Ionized Calcium 4.8 mg/dL 4.5-5.3 mg/dL [facility]: [address] [place] [address] 04/19/2021 CBC W/ Auto Diff Normal White Blood Count 9.4 10 4.0-10.0 10 [facility]: [address] [place] [address] Normal Red Blood Count 4.90 10 4.00-5.40 10 [facility]: [address] [facility] [facility] Normal Hemoglobin 14.4 g/dL 12.0-15.5 g/dL [facility]: [address] [facility] Normal Hematocrit 42.2 % 36.0-47.0 % [facility]: [address] [facility] Normal Mean Corpuscular Volume 86.1 fL 80.0 -96.0 fL [facility]: [address] [facility] Normal Mean Corpuscular Hemoglobin 29.4 pg 27.0-33.0 pg [facility]: [address] [facility] Normal Mean Corpuscular HGB Conc 34.1 g/dL 32.0-36.5 g/dL [facility]: [address] [facility] Normal Red Cell Distribution Width 12.4 % 1 1.5-14.5 % [facility]: [address] [facility] Normal Platelet Count, Automated 271 10 150 -450 10 [facility]: [address] [facility] Normal Neutrophils % 53.0 % 36.0-66.0 % [facility]: [address] [facility] Normal Lymph % 37.6 % 24.0-44.0 % Final [facility]: [address] [facility] Normal Saunders % 5.9 % 2.0-8.0 % Final [facility]: [address] [facility] Normal Eos % 2.7 % 0.0-3.0 % [facility]: [address] [facility] Normal Baso % 0.6 % 0.0-1.0 % [facility]: [address] [facility] Normal Immature Granulocyte % 0.2 % 0-3.0 % [facility]: [address] [facility] Normal Nucleated Red Blood Cell % 0.0 % 0- 0 % [facility]: [address] [facility] Normal Neutrophils # 5.0 10 1.5-8.5 10 [facility]: [address] [facility] Normal Lymph # 3.5 10 1.5-5.0 10 [facility]: [address] [facility] Normal Saunders # 0.6 10 0.0-0.8 10 [facility]: [address] [facility] Normal Eos # 0.3 10 0.0-0.5 10 [facility]: [address] [facility] Normal Baso # 0.1 10 0.0-0.2 10 [facility]: [address] [place] [address] 04/19/2021 D-dimer, Quant, Plasma High D-dimer Quant 503.68 NG/mL <500 NG/mL [facility]: [address] [facility] 04/19/2021 Cardiovascular Assessment Panel, Serum Normal CPK Creatine Phosphokinase 111 U/L 26-192 U/L [facility]: [address] [place] [address] Normal CK-mb Value Mass < 1.0 NG/mL <3.6 NG /mL [facility]: [address] [place] [address] Normal mb/CK Relative Index 0.90 < or =4 [facility]: [address] [place] [address] Normal Troponin I < 0.02 NG/mL < 0.10 NG/mL [facility]: [address] [place] [address] 04/19/2021 CMP, Serum or Plasma Normal Glucose, Fastin g 82 mg/dL 70-100 mg/dL [facility]: [address] [facility] Normal Blood Urea Nitrogen 10 mg/dL 7-18 mg /dL [facility]: [address] [place] [address] Normal Creatinine for GFR 0.69 mg/dL 0.55-1 .30 mg/dL [facility]: [address] [place] [address] Normal Glomerular Filtration Rate > 60.0 >6 0 [facility]: [address] [place] [address] Normal Sodium Level 140 mEq/L 136-145 mEq/L [facility]: [address] Normal Potassium Serum 4.4 mEq/L 3.5-5.1 mE q/L [facility]: [address] [facility] [facility] High Chloride Level 108 mEq/L 98-107 mEq/ L [facility]: [address] [place] [address] Normal Carbon Dioxide Level 25 mEq/L 21-32 mEq/L [facility]: [address] [place] [address] Low Anion Gap 7 mEq/L 8-16 mEq/L [facility]: [address] [facility] Normal Calcium Level 9.4 mg/dL 8.5-10.1 mg/ dL [facility]: [address] [place] [address] Normal AST/SGOT 24 U/L 7-37 U/L [facility]: [address] [place] [address] Normal ALT/SGPT 21 U/L 12-78 U/L [facility]: [address] [place] [address] Normal Alkaline Phosphatase 70 U/L 45-117 U /L [facility]: [address] [place] [address] Normal Bilirubin,total 0.5 mg/dL 0.2-1.0 mg /dL [facility]: [address] [place] [address] High Total Protein 8.5 gm/dL 6.4-8.2 gm/d L [facility]: [address] [place] [address] Normal Albumin 4.5 gm/dL 3.2-5.2 gm/dL [facility]: [address] [place] [address] Low Albumin/globulin Ratio 1.1 1.2-2. 2 [facility]: [address] [place] [address] 04/19/2021 Cardiovascular Assessment Panel, Serum Normal CPK Creatine Phosphokinase 174 U/L 26-192 U/L [facility]: [address] [place] [address] Normal CK-mb Value Mass < 1.0 NG/mL <3.6 NG /mL [facility]: [address] [place] [address] Normal mb/CK Relative Index 0.57 < or =4 [facility]: [address] [place] [address] Normal Troponin I < 0.02 NG/mL < 0.10 NG/mL [facility]: [address] [place] [address] 04/19/2021 TSH, Serum or Plasma High Thyroid Stimulating Hormone 5.490 uIU/mL 0.358-3.740 uIU/mL [facility] nter: [address] [place] [address] 04/19/2021 T4, Free, Serum Normal Free T4 0.94 NG/dL 0.76-1.46 NG/dL [facility]: [address] [place] [address] 04/19/2021 Thyroglobulin Ab, Serum Normal Thyr oglobulin Antibody < 15.0 U/mL <60.0 U/mL [facility] nter: [address] [place] [address] 04/19/2021 Choriogonadotropin, Quant, Serum or Plasma Norm al HCG, Serum Quantitative < 1.0 mIU/mL [facility]: [address] [place] [address] 04/19/2021 Thyroglobulin Quant (Incl Katheryn) Normal Thyroglobulin Quantitative 6.9 NG/mL 1.5-38.5 NG/mL [facility]: [address] [place] [address] Normal Thryoglobulin Antibodies (Kevan) < 1.0 IU/mL 0.0-0.9 IU/mL [facility]: [address] [place] [address] 03/23/2021 TSH + Free T4, Serum Normal Thyroid Stimulating Hormone 3.340 uIU/mL 0.358-3.740 uIU/mL [facility] nter: [address] [place] [address] Normal Free T4 0.99 NG/dL 0.76-1.46 NG/dL F inal [facility]: [address] [place] [address] 02/16/2021 SARS CoV 2 RNA, QL, Nasopharynx NASOPHARYNX No observation recorded. [facility]: [address] [place] [address] 12/08/2020 CBC W/ Auto Diff Normal White Blood Count 8.1 10 4.0-10.0 10 [facility]: [address] [place] [address] Normal Red Blood Count 5.05 10 4.00-5.40 10 [facility]: [address] [place] [address] Normal Hemoglobin 14.9 g/dL 12.0-15.5 g/dL [facility]: [address] [place] [address] Normal Hematocrit 42.6 % 36.0-47.0 % [facility]: [address] [place] [address] Normal Mean Corpuscular Volume 84.4 fL 80.0 -96.0 fL [facility]: [address] [place] [address] Normal Mean Corpuscular Hemoglobin 29.5 pg 27.0-33.0 pg [facility]: [address] [facility] Normal Mean Corpuscular HGB Conc 35.0 g/dL 32.0-36.5 g/dL Final [facility]: [address] [facility] Normal Red Cell Distribution Width 12.7 % 1 1.5-14.5 % [facility]: [address] [facility] Normal Platelet Count, Automated 259 10 150 -450 10 [facility]: [address] [facility] Normal Neutrophils % 51.7 % 36.0-66.0 % [facility]: [address] [facility] Normal Lymph % 27.7 % 24.0-44.0 % Final [facility]: [address] [facility] Normal Saunders % 7.8 % 2.0-8.0 % Final [facility]: [address] [facility] High Eos % 11.5 % 0.0-3.0 % [facility]: [address] [facility] High Baso % 1.1 % 0.0-1.0 % Final [facility]: [address] [facility] Normal Immature Granulocyte % 0.2 % 0-3.0 % [facility]: [address] [facility] Normal Nucleated Red Blood Cell % 0.0 % 0- 0 % [facility]: [address] [facility] Normal Neutrophils # 4.2 10 1.5-8.5 10 [facility]: [address] [facility] Normal Lymph # 2.2 10 1.5-5.0 10 Final [facility]: [address] [facility] Normal Saunders # 0.6 10 0.0-0.8 10 [facility]: [address] [facility] High Eos # 0.9 10 0.0-0.5 10 [facility]: [address] [facility] Normal Baso # 0.1 10 0.0-0.2 10 [facility]: [address] [place] [address] 12/08/2020 UA W/ Reflex to Culture Normal Appearance, Urine Rfx clear clear [facility]: [address] [facility] Normal Color, Urine Rfx ladi yellow [facility]: [address] [facility] Normal pH,urine Rfx 6.0 units 5.0-9.0 units [facility]: [address] [facility] Normal Specific [place] Ur Auto Rfx 1.027 1.002-1.035 [facility]: [address] [facility] Normal Protein, Urine Auto Rfx negative mg/ dL negative mg/dL [facility]: [address] [facility] Normal Glucose, Urine (UA) Auto Rfx n egative mg/dL negative mg/dL [facility]: [address] [facility] High Ketone, Urine Auto Rfx trace mg/dL n egative mg/dL [facility]: [address] [facility] High Urobilinogen, Urine Auto Rfx 2.0 mg/ dL 0.0-2.0 mg/dL [facility]: [address] [facility] Normal Bilirubin, Urine Auto Rfx negative n egative [facility]: [address] [facility] Normal Nitrite, Urine Auto Rfx negative neg ative [facility]: [address] [facility] High Leukocyte Esterase Ur Auto Rfx 2+ negative [facility]: [address] [facility] Normal Blood, Urine Blood Rfx negative nega tive [facility]: [address] [facility] High WBC, Urine Auto Rfx 17 /hpf 0-3 /hpf [facility]: [address] [facility] Normal RBC, Urine Auto Rfx 0 /hpf 0-3 /hpf [facility]: [address] [facility] High Bacteria, Urine Auto Rfx 1+ nega tive [facility]: [address] [facility] Normal Squam Epithelial Cell Ur Aurfx 3 /hp f 0-6 /hpf [facility]: [address] [facility] Normal Mucus, Urine Rfx moderate negative F inal [facility]: [address] [facility] Normal Hyaline Cast, Urine Auto Rfx 0 /lpf 0-1 /lpf [facility]: [address] [facility] 12/08/2020 Istat Chem8+ Panel Normal Istat HCT 43.0 % 38. 0-51.0 % [facility]: [address] [facility] Normal Istat Glucose 95 mg/dL 70-105 mg/dL [facility]: [address] [facility] Normal Istat Sodium 142 mEq/L 136-145 mEq/L [facility]: [address] [facility] Normal Istat Potassium 3.6 mEq/L 3.5-5.1 mE q/L [facility]: [address] [facility] Normal Istat Ca++ 5.1 mg/dL 4.5-5.3 mg/dL F [facility]: [address] [place] Normal Istat Chloride 105 mEq/L 98-109 mEq/ L [facility]: [address] [facility] Normal Istat CO2 24.0 mm/L 23.0-27.0 mm/L [facility]: [address] [facility] Normal Istat BUN 17 mg/dL 8-26 mg/dL [facility]: [address] [facility] Normal Istat Creatinine 0.7 mg/dL 0.6-1.3 m g/dL [facility]: [address] [facility] 12/08/2020 Istat B-HCG Normal Istat B-HCG < 5.0 [facility]: [address] [facility] 12/08/2020 Hepatic Function Panel, Serum Normal AST/SG OT 16 U/L 7-37 U/L [facility]: [address] [facility] Normal ALT/SGPT 13 U/L 12-78 U/L [facility]: [address] [facility] Normal Alkaline Phosphatase 60 U/L 45-117 U /L [facility]: [address] [facility] Normal Bilirubin,total 1.0 mg/dL 0.2-1.0 mg /dL [facility]: [address] [place] [address] Normal Bilirubin,direct 0.2 mg/dL 0.0-0.2 m g/dL [facility]: [address] [place] [address] Normal Total Protein 7.8 gm/dL 6.4-8.2 gm/d L [facility]: [address] [place] [address] Normal Albumin 4.4 gm/dL 3.2-5.2 gm/dL Ludy l [facility]: [address] [place] [address] Normal Albumin/globulin Ratio 1.3 1.2-2. 2 [facility]: [address] [place] [address] 12/08/2020 Lipase, Serum or Plasma Normal Lipase 96 U/L 7 3-393 U/L [facility]: [address] [place] [address] 12/08/2020 Wet Mount CERVICAL No observation recorded. [facility]: [address] [place] [address] 12/08/2020 CT + NG DNA, Qual, PCR, Unspecified Specimen No rmal Chlamydia DNA Amplification negative negative [facility]: [address] [place] [address] Normal GC DNA Amplification negative negati ve [facility]: [address] [place] [address] 12/08/2020 Culture, Urine URINE,CLEAN CATCH No observation recorded. [facility]: [address] [place] [address] 09/12/2020 Cytology, Non-gynecological, Unspecified Specimen Fine Needle Asp Cytolyt Prep [facility]: [address] [place] [address] 09/06/2020 TSH + Free T4, Serum Normal Thyroid Stimulating Hormone 0.874 uIU/mL 0.358-3.740 uIU/mL [facility] nter: [address] [place] [address] Normal Free T4 1.11 NG/dL 0.76-1.46 NG/dL F inal [facility]: [address] [place] [address] Past Encounters 07/19/2021 Adjustment Disorder Khadijah Lamas [facility]: [address], [place] [address], Ph. 05/28/2021 Adjustment Disorder Khadijah Lamas [facility]: [address], [place] [address], Ph. 04/27/2021 Adjustment Disorder Khadijah Lamas [facility]: [address], [place] [address], Ph. 04/06/2021 Adjustment Disorder Khadijah Lamas [facility]: [address], [place] [address], Ph. 03/08/2021 Adjustment Disorder Khadijah Lamas [facility]: [address], [place] [address], Ph. 02/19/2021 Adjustment Disorder Khadijah Lamas [facility]: [address], [place] [address], Ph. 02/02/2021 Adjustment Disorder Khadijah Lamas [facility]: [address], [place] [address], Ph. 02/01/2021 Thyroid Nodule Neelam Petty, [facility]-: [address], [place] [address], Ph. 01/01/2021 Adjustment Disorder Khadijah Lamas [facility]: [address], [place] [address], Ph. 11/30/2020 Adjustment Disorder Khadijah Lamas [facility]: [address], [place] [address], Ph. 11/08/2020 Adjustment Disorder Khadijah Lamas [facility]: [address], [place] [address], Ph. 10/17/2020 Adjustment Disorder Khadijah Lamas [facility]: [address], [place] [address], Ph. 09/25/2020 Adjustment Disorder Khadijah Lamas [facility]: [address] [place] [phone], Ph. 08/31/2020 Adjustment Disorder Khadijah Lamas [facility]: [address] [place] [address], Ph. 08/22/2020 Adjustment Disorder Khadijah Lamas [facility]: [address] [place] [phone], Ph. 08/17/2020 Needs Influenza Immunization; ALYSSA Sheldon[facility]: [address] [place] [phone], Ph. 08/04/2020 Adjustment Disorder Khadijah Lamas [facility]: [address] [place] [phone], Ph. 07/24/2020 Adjustment Disorder Khadijah Lamas [facility]: [address] [place] [phone], Ph. 07/10/2020 Adjustment Disorder Khadijah Lamas [facility]: [address] [place] [phone], Ph. Social History Tobacco Smoking Status Never Smoker Vaccine List Vaccine Type influenza, injectable, quadrivalent, pre servative free 11/18/20190.5 mL 08/17/20200.5 mL Notes: Pt would like Flu vaccine this vi sit Plan of Care Patient Instructions Please keep follow up appointment with g eneral surgeon as scheduled. Please let us know if you need additional assistance. Please try to maintain good nutrition, adequate rest and adequate physical activities and adequate intake of water daily. Reminders Provider Appointments None recorded. Lab None recorded. Referral None recorded. Procedures None recorded. Surgeries None recorded. Imaging None recorded. Vitals 02/01/2021 03:40PM TELEHEALTH 20 Height 65 in 08/17/2020 01:40PM ESTABLISHED [id number] Height Weight BMI Blood Pressure 65 in 154 lbs 2 oz 25.6 kg/m2 122/86 mm[Hg] 03/23/2020 Height Weight BMI Blood Pressure 65 in 146 lbs 2.08 oz 24.41 kg/m2 104/74 mm[H g] 02/24/2020 Height Weight BMI Blood Pressure 65 in 148 lbs 2.08 oz 24.74 kg/m2 110/74 mm[H g] 02/17/2020 Height Weight BMI Blood Pressure 65 in 147 lbs 2.08 oz 24.57 kg/m2 107/75 mm[H g] 01/31/2020 Height Weight BMI Blood Pressure 65 in 139 lbs 2.08 oz 23.24 kg/m2 103/69 mm[H g] 01/06/2020 Height 65 in 12/08/2019 Height Weight BMI Blood Pressure 65 in 137 lbs 2.08 oz 22.90 kg/m2 107/76 mm[H g] 11/18/2019 Height Weight BMI Blood Pressure 65 in 138 lbs 23.05 kg/m2 110/73 mm[Hg] 10/27/2019 Height Weight BMI Blood Pressure 65 in 145 lbs 24.22 kg/m2 120/82 mm[Hg] 10/19/2019 Height Weight BMI Blood Pressure 65 in 145 lbs 24.22 kg/m2 107/68 mm[Hg]
--- OUTSIDE RECORDS SUMMARY | 2021-08-04 05:31 | CCD ---
Author Author [facility] Organization [facility] Address Unknown Phone Unavailable Care Team Providers Care Mortgage Loan Computation Clerk Name Role Phone Maring, Bruce PA Unavailable Unavailable Maring, Bruce PA Unavailable Unavailable Maring, Bruce PA Unavailable Unavailable Maring, Bruce PA Unavailable Unavailable Maring, Bruce PA Unavailable Unavailable Maring, Bruce PA Unavailable Unavailable Maring, Bruce PA Unavailable Unavailable Maring, Bruce PA Unavailable Unavailable Maring, Bruce PA Unavailable Unavailable Maring, Bruce PA Unavailable Unavailable Maring, Bruce PA Unavailable Unavailable Maring, Bruce PA Unavailable Unavailable Maring, Bruce PA Unavailable Unavailable Maring, Bruce PA Unavailable Unavailable Maring, Bruce PA Unavailable Unavailable Maring, Bruce PA Unavailable Unavailable Neelam Petty MEDICAL RECORD TECHNICIAN Unavailable Unavailable Khadijah Lamas Unavailable [phone] KINJAL, B RAINER ONLINE COMMUNICATIONS SPECIALIST Unavailable Unavailable KINJAL, B RAINER ONLINE COMMUNICATIONS SPECIALIST Unavailable Unavailable KINJAL, B RAINER ONLINE COMMUNICATIONS SPECIALIST Unavailable Unavailable KINJAL, B RAINER ONLINE COMMUNICATIONS SPECIALIST Unavailable Unavailable KINJAL, B RAINER ONLINE COMMUNICATIONS SPECIALIST Unavailable Unavailable KINJAL, B RAINER ONLINE COMMUNICATIONS SPECIALIST Unavailable Unavailable KINJAL, B RAINER ONLINE COMMUNICATIONS SPECIALIST Unavailable Unavailable KINJAL, B RAINER ONLINE COMMUNICATIONS SPECIALIST Unavailable Unavailable KINJAL, B RAINER ONLINE COMMUNICATIONS SPECIALIST Unavailable Unavailable KINJAL, B RAINER ONLINE COMMUNICATIONS SPECIALIST Unavailable Unavailable KINJAL, B RAINER ONLINE COMMUNICATIONS SPECIALIST Unavailable Unavailable KINJAL, B RAINER ONLINE COMMUNICATIONS SPECIALIST Unavailable Unavailable KINJAL, B RAINER ONLINE COMMUNICATIONS SPECIALIST Unavailable Unavailable KINJAL, B RAINER ONLINE COMMUNICATIONS SPECIALIST Unavailable Unavailable KINJAL, B RAINER ONLINE COMMUNICATIONS SPECIALIST Unavailable Unavailable KINJAL, B RAINER ONLINE COMMUNICATIONS SPECIALIST Unavailable Unavailable KINJAL, B RAINER ONLINE COMMUNICATIONS SPECIALIST Unavailable Unavailable KINJAL, B RAINER ONLINE COMMUNICATIONS SPECIALIST Unavailable Unavailable KINJAL, B RAINER ONLINE COMMUNICATIONS SPECIALIST Unavailable Unavailable KINJAL, B RAINER ONLINE COMMUNICATIONS SPECIALIST Unavailable Unavailable KINJAL, B RAINER ONLINE COMMUNICATIONS SPECIALIST Unavailable Unavailable KINJAL, B RAINER ONLINE COMMUNICATIONS SPECIALIST Unavailable Unavailable KINJAL, B RAINER ONLINE COMMUNICATIONS SPECIALIST Unavailable Unavailable KINJAL, B RAINER ONLINE COMMUNICATIONS SPECIALIST Unavailable Unavailable KINJAL, B RAINER ONLINE COMMUNICATIONS SPECIALIST Unavailable Unavailable KINJAL, B RAINER ONLINE COMMUNICATIONS SPECIALIST Unavailable Unavailable KINJAL, B RAINER ONLINE COMMUNICATIONS SPECIALIST Unavailable Unavailable KINJAL, B RAINER ONLINE COMMUNICATIONS SPECIALIST Unavailable Unavailable KINJAL, B RAINER ONLINE COMMUNICATIONS SPECIALIST Unavailable Unavailable KINJAL, B RAINER ONLINE COMMUNICATIONS SPECIALIST Unavailable Unavailable KINJAL, B RAINER ONLINE COMMUNICATIONS SPECIALIST Unavailable Unavailable KINJAL, B RAINER ONLINE COMMUNICATIONS SPECIALIST Unavailable Unavailable KINJAL, B RAINER ONLINE COMMUNICATIONS SPECIALIST Unavailable Unavailable KINJAL, B RAINER ONLINE COMMUNICATIONS SPECIALIST Unavailable Unavailable KINJAL, B RAINER ONLINE COMMUNICATIONS SPECIALIST Unavailable Unavailable KINJAL, B RAINER ONLINE COMMUNICATIONS SPECIALIST Unavailable Unavailable KINJAL, B RAINER ONLINE COMMUNICATIONS SPECIALIST Unavailable Unavailable KINJAL, B RAINER ONLINE COMMUNICATIONS SPECIALIST Unavailable Unavailable KINJAL, B RAINER ONLINE COMMUNICATIONS SPECIALIST Unavailable Unavailable KINJAL, B RAINER ONLINE COMMUNICATIONS SPECIALIST Unavailable Unavailable KINJAL, B RAINER ONLINE COMMUNICATIONS SPECIALIST Unavailable Unavailable KINJAL, B RAINER ONLINE COMMUNICATIONS SPECIALIST Unavailable Unavailable KINJAL, B RAINER ONLINE COMMUNICATIONS SPECIALIST Unavailable Unavailable KINJAL, B RAINER ONLINE COMMUNICATIONS SPECIALIST Unavailable Unavailable KINJAL, B RAINER ONLINE COMMUNICATIONS SPECIALIST Unavailable Unavailable KINJAL, B RAINER ONLINE COMMUNICATIONS SPECIALIST Unavailable Unavailable KINJAL, B RAINER ONLINE COMMUNICATIONS SPECIALIST Unavailable Unavailable KINJAL, B RAINER ONLINE COMMUNICATIONS SPECIALIST Unavailable Unavailable KINJAL, B RAINER ONLINE COMMUNICATIONS SPECIALIST Unavailable Unavailable KINJAL, B RAINER ONLINE COMMUNICATIONS SPECIALIST Unavailable Unavailable KINJAL, B RAINER ONLINE COMMUNICATIONS SPECIALIST Unavailable Unavailable KINJAL, B RAINER ONLINE COMMUNICATIONS SPECIALIST Unavailable Unavailable KINJAL, B RAINER ONLINE COMMUNICATIONS SPECIALIST Unavailable Unavailable KINJAL, B RAINER ONLINE COMMUNICATIONS SPECIALIST Unavailable Unavailable KINJAL, B RAINER ONLINE COMMUNICATIONS SPECIALIST Unavailable Unavailable KINJAL, B RAINER ONLINE COMMUNICATIONS SPECIALIST Unavailable Unavailable KINJAL, B RAINER ONLINE COMMUNICATIONS SPECIALIST Unavailable Unavailable KINJAL, B RANIER ONLINE COMMUNICATIONS SPECIALIST Unavailable Unavailable KINJAL, B RAINER ONLINE COMMUNICATIONS SPECIALIST Unavailable Unavailable KINJAL, B RAINER ONLINE COMMUNICATIONS SPECIALIST Unavailable Unavailable KINJAL, B RAINER ONLINE COMMUNICATIONS SPECIALIST Unavailable Unavailable KINJAL, B RAINER ONLINE COMMUNICATIONS SPECIALIST Unavailable Unavailable Abdulkadir, P Fred Unavailable Unavailable Abdulkadir, P Fred Unavailable Unavailable Abdulkadir, P Fred Unavailable Unavailable Abdulkadir, P Fred Unavailable Unavailable Abdulkadir, P Fred Unavailable Unavailable Abdulkadir, P Fred Unavailable Unavailable Abdulkadir, P Fred Unavailable Unavailable Abdulkadir, P Fred Unavailable Unavailable Abdulkadir, P Fred Unavailable Unavailable Abdulkadir, P Fred Unavailable Unavailable Abdulkadir, P Fred Unavailable Unavailable Abdulkadir, P Fred Unavailable Unavailable Abdulkadir, P Fred Unavailable Unavailable Abdulkadir, P Fred Unavailable Unavailable Abdulkadir, P Fred Unavailable Unavailable Abdulkadir, P Fred Unavailable Unavailable Abdulkadir, P Fred Unavailable Unavailable Abdulkadir, P Fred Unavailable Unavailable Abdulkadir, P Fred Unavailable Unavailable Abdulkadir, P Fred Unavailable Unavailable Abdulkadir, P Fred Unavailable Unavailable Abdulkadir, P Fred Unavailable Unavailable Abdulkadir, P Fred Unavailable Unavailable Abdulkadir, P Fred Unavailable Unavailable Abdulkadir, P Fred Unavailable Unavailable Abdulkadir, P Fred Unavailable Unavailable Abdulkadir, P Fred Unavailable Unavailable Abdulkadir, P Ferd Unavailable Unavailable Abdulkadir, P Fred Unavailable Unavailable Abdulkadir, P Fred Unavailable Unavailable Abdulkadir, P Fred Unavailable Unavailable Abdulkadir, P Fred Unavailable Unavailable Abdulkadir, P Fred Unavailable Unavailable Abdulkadir, P Fred Unavailable Unavailable Abdulkadir, P Fred Unavailable Unavailable Abdulkadir, P Fred Unavailable Unavailable Abdulkadir, P Fred Unavailable Unavailable Abdulkadir, P Fred Unavailable Unavailable Abdulkadir, P Fred Unavailable Unavailable Abdulkadir, P Fred Unavailable Unavailable Abdulkadir, P Fred Unavailable Unavailable Abdulkadir, P Fred Unavailable Unavailable Abdulkadir, P Fred Unavailable Unavailable Abdulkadir, P Fred Unavailable Unavailable Abdulkadir, P Fred Unavailable Unavailable Abdulkadir, P Fred Unavailable Unavailable Abdulkadir, P Fred Unavailable Unavailable Abdulkadir, P Fred Unavailable Unavailable Abdulkadir, P Fred Unavailable Unavailable Abdulkadir, P Fred Unavailable Unavailable Abdulkadir, P Fred Unavailable Unavailable Abdulkadir, P Fred Unavailable Unavailable Abdulkadir, P Fred Unavailable Unavailable Abdulkadir, P Fred Unavailable Unavailable Abdulkadir, P Fred Unavailable Unavailable Jovanny, A Neelam MEDICAL RECORD TECHNICIAN Unavailable Unavailable [place], A Neelam MEDICAL RECORD TECHNICIAN Unavailable Unavailable [place], A Neelam MEDICAL RECORD TECHNICIAN Unavailable Unavailable [place], A Neelam MEDICAL RECORD TECHNICIAN Unavailable Unavailable [place], A Neelam MEDICAL RECORD TECHNICIAN Unavailable Unavailable [place], A Neelam MEDICAL RECORD TECHNICIAN Unavailable Unavailable [place], A Neelam MEDICAL RECORD TECHNICIAN Unavailable Unavailable [place], A Neelam MEDICAL RECORD TECHNICIAN Unavailable Unavailable [place], A Neelam MEDICAL RECORD TECHNICIAN Unavailable Unavailable [place], A Neelam MEDICAL RECORD TECHNICIAN Unavailable Unavailable [place], A Neelam MEDICAL RECORD TECHNICIAN Unavailable Unavailable [place], A Neelam MEDICAL RECORD TECHNICIAN Unavailable Unavailable [place], A Neelam MEDICAL RECORD TECHNICIAN Unavailable Unavailable [place], A Neelam MEDICAL RECORD TECHNICIAN Unavailable Unavailable [place], A Neelam MEDICAL RECORD TECHNICIAN Unavailable Unavailable [place], A Neelam MEDICAL RECORD TECHNICIAN Unavailable Unavailable [place], A Neelam MEDICAL RECORD TECHNICIAN Unavailable Unavailable [place], A Neelam MEDICAL RECORD TECHNICIAN Unavailable Unavailable [place], A Neelam MEDICAL RECORD TECHNICIAN Unavailable Unavailable [place], A Neelam MEDICAL RECORD TECHNICIAN Unavailable Unavailable [place], A Neelam MEDICAL RECORD TECHNICIAN Unavailable Unavailable [place], A Neelam MEDICAL RECORD TECHNICIAN Unavailable Unavailable [place], A Neelam MEDICAL RECORD TECHNICIAN Unavailable Unavailable [place], A Neelam MEDICAL RECORD TECHNICIAN Unavailable Unavailable [place], A Neelam MEDICAL RECORD TECHNICIAN Unavailable Unavailable [place], A Neelam MEDICAL RECORD TECHNICIAN Unavailable Unavailable [place], A Neelam MEDICAL RECORD TECHNICIAN Unavailable Unavailable [place], A Neelam MEDICAL RECORD TECHNICIAN Unavailable Unavailable [place], A Neelam MEDICAL RECORD TECHNICIAN Unavailable Unavailable [place], A Neelam MEDICAL RECORD TECHNICIAN Unavailable Unavailable [place], A Neelam MEDICAL RECORD TECHNICIAN Unavailable Unavailable VICENTE, YVON DO Unavailable Unavailable VICENTE, YVON DO Unavailable Unavailable VICENTE, YVON DO Unavailable Unavailable Lupe Sandy MD Unavailable Unavailable Lupe Sandy MD Unavailable Unavailable Lupe Sandy MD Unavailable Unavailable Lupe Sandy MD Unavailable Unavailable Lupe Sandy MD Unavailable Unavailable Lupe Sandy MD Unavailable Unavailable Lupe Sandy MD Unavailable Unavailable Lupe Sandy MD Unavailable Unavailable Lupe Sandy MD Unavailable Unavailable Lupe Sandy MD Unavailable Unavailable Lupe Sandy MD Unavailable Unavailable Lupe Sandy MD Unavailable Unavailable Lupe Sandy MD Unavailable Unavailable Lupe Sandy MD Unavailable Unavailable Lupe Sandy MD Unavailable Unavailable Lupe Sandy MD Unavailable Unavailable Lupe Sandy MD Unavailable Unavailable Lupe Sandy MD Unavailable Unavailable Lupe Sandy MD Unavailable Unavailable Lupe Sandy MD Unavailable Unavailable Lupe Sandy MD Unavailable Unavailable Fish, Lupe Lu MD Unavailable Unavailable Fish, Lupe Lu MD Unavailable Unavailable Fish, Lupe Lu MD Unavailable Unavailable Fish, Lupe Lu MD Unavailable Unavailable Fish, Lupe Lu MD Unavailable Unavailable Fish, Lupe Lu MD Unavailable Unavailable Fish, Lupe Lu MD Unavailable Unavailable Fish, Lupe Lu MD Unavailable Unavailable Fish, Lupe Lu MD Unavailable Unavailable Fish, Lupe Lu MD Unavailable Unavailable Fish, Lupe Lu MD Unavailable Unavailable Fish, Lupe Lu MD Unavailable Unavailable Fish, Lupe Lu MD Unavailable Unavailable Fish, Lupe Lu MD Unavailable Unavailable Fish, Lupe Lu MD Unavailable Unavailable Fish, Lupe Lu MD Unavailable Unavailable Fish, Lupe Lu MD Unavailable Unavailable Fish, Lupe Lu MD Unavailable Unavailable Fish, Lupe Lu MD Unavailable Unavailable Fish, Lupe Lu MD Unavailable Unavailable Fish, Lupe Lu MD Unavailable Unavailable Fish, Lupe Lu MD Unavailable Unavailable Fish, Lupe Lu MD Unavailable Unavailable Fish, Lupe Lu MD Unavailable Unavailable Fish, Lupe Lu MD Unavailable Unavailable Fish, Lupe Lu MD Unavailable Unavailable Fish, Lupe Lu MD Unavailable Unavailable Fish, Lupe Lu MD Unavailable Unavailable Fish, Lupe Lu MD Unavailable Unavailable Fish, Lupe Lu MD Unavailable Unavailable Fish, Lupe Lu MD Unavailable Unavailable Fish, Lupe Lu MD Unavailable Unavailable Fish, Lupe Lu MD Unavailable Unavailable Fish, Lupe Lu MD Unavailable Unavailable Fish, Lupe Lu MD Unavailable Unavailable Fish, Lupe Lu MD Unavailable Unavailable Fish, Lupe Lu MD Unavailable Unavailable Fish, Lupe Lu MD Unavailable Unavailable Fish, Lupe Lu MD Unavailable Unavailable Fish, Lupe Lu MD Unavailable Unavailable Fish, Lupe Lu MD Unavailable Unavailable Fish, Lupe Lu MD Unavailable Unavailable Fish, Lupe Lu MD Unavailable Unavailable Fish, Lupe Lu MD Unavailable Unavailable Fish, Lupe Lu MD Unavailable Unavailable Fish, Lpue Lu MD Unavailable Unavailable Fish, Lupe Lu MD Unavailable Unavailable Fish, Lupe Lu MD Unavailable Unavailable Fish, Lupe Lu MD Unavailable Unavailable Fish, Lupe Lu MD Unavailable Unavailable Fish, Lupe Lu MD Unavailable Unavailable Fish, Lupe Lu MD Unavailable Unavailable Fish, Lupe Lu MD Unavailable Unavailable Fish, Lupe Lu MD Unavailable Unavailable Fish, Lupe Lu MD Unavailable Unavailable Fish, Lupe Lu MD Unavailable Unavailable Fish, Lupe Lu MD Unavailable Unavailable Fish, Lupe Lu MD Unavailable Unavailable Fish, Lupe Lu MD Unavailable Unavailable Fish, Lupe Lu MD Unavailable Unavailable Fish, Lupe Lu MD Unavailable Unavailable Fish, Lupe Lu MD Unavailable Unavailable Fish, Lupe Lu MD Unavailable Unavailable Fish, Lupe Lu MD Unavailable Unavailable Fish, B Tabitha BECKFORD Unavailable Unavailable Fish, B Tabitha BECKFORD Unavailable Unavailable Fish, B Tabitha BECKFORD Unavailable Unavailable Fish, B Tabitha BECKFORD Unavailable Unavailable Fish, Lupe Lu MD Unavailable Unavailable Fish, Lupe Lu MD Unavailable Unavailable Fish, Lupe Lu MD Unavailable Unavailable Fish, B Tabitha BEKCFORD Unavailable Unavailable Fish, B Tabitha BECKFORD Unavailable Unavailable Fish, B Tabitha BECKFORD Unavailable Unavailable Fish, B Tabitha BECKFORD Unavailable Unavailable Fish, B Tabitha BECKFORD Unavailable Unavailable Fish, B Tabitha BECKFORD Unavailable Unavailable Fish, B Tabitha BECKFORD Unavailable Unavailable Fish, B Tabitha BECKFORD Unavailable Unavailable Fish, B Tabitha BECKFORD Unavailable Unavailable Fish, B Tabitha BECKFORD Unavailable Unavailable Fish, B Tabitha BECKFORD Unavailable Unavailable Fish, B Tabitha BECKFORD Unavailable Unavailable Fish, B Tabitha BECKFORD Unavailable Unavailable Fish, B Tabitha BECKFORD Unavailable Unavailable Fish, B Tabitha BECKFORD Unavailable Unavailable Fish, B Tabitha BECKFORD Unavailable Unavailable Fish, B Tabitha BECKFORD Unavailable Unavailable Fish, B Tabitha BECKFORD Unavailable Unavailable Fish, B Tabitha BECKFORD Unavailable Unavailable Fish, B Tabitha BECKFORD Unavailable Unavailable Fish, B Tabitha BECKFORD Unavailable Unavailable Fish, B Tabitha BECKFORD Unavailable Unavailable Fish, B Tabitha BECKFORD Unavailable Unavailable Fish, B Tabitha BECKFORD Unavailable Unavailable Fish, B Tabitha BECKFORD Unavailable Unavailable Fish, B Tabitha BECKFORD Unavailable Unavailable Fish, B Tabitha BECKFORD Unavailable Unavailable Fish, B Tabitha BECKFORD Unavailable Unavailable Fish, B Tabitha BECKFORD Unavailable Unavailable Fish, B Tabitha BECKFORD Unavailable Unavailable Fish, B Tabitha BECKFORD Unavailable Unavailable Fish, B Tabitha BECKFORD Unavailable Unavailable Fish, B Tabitha BECKFORD Unavailable Unavailable Fish, B Tabitha BECKFORD Unavailable Unavailable Fish, B Tabitha BECKFORD Unavailable Unavailable Fish, B Tabitha BECKFORD Unavailable Unavailable Fish, Lupe Lu MD Unavailable Unavailable Fish, Lupe Lu MD Unavailable Unavailable MURRAY C GISELE BECKFORD Unavailable Unavailable CHANGREGORY C GISELE BECKFORD Unavailable Unavailable CHANLIECTRISTON C GISELE BECKFORD Unavailable Unavailable CHANLIECTRISTON C GISELE BECKFORD Unavailable Unavailable CHANLIECTRISTON C GISELE BECKFORD Unavailable Unavailable CHANLIECTRISTON C GISELE BECKFORD Unavailable Unavailable CHANLIECTRISTON C GISELE BECKFORD Unavailable Unavailable CHANLIECTRISTON C GISELE BECKFORD Unavailable Unavailable CHANLIECTRISTON C GISELE BECKFORD Unavailable Unavailable CHANLIECTRISTON, C GISELE BECKFORD Unavailable Unavailable CHANLIECTRISTON C GISELE BECKFORD Unavailable Unavailable NON, PHYSICIAN STAFF Unavailable Unavailable Re-disclosure Warning The records that you are about to access may contain information from federally-assisted alcohol or drug abuse programs. If such information is present, then the following federally mandated warning applies: This information has been disclosed to you from records protected by federal confidentiality rules (42 CFR part 2). The federal rules prohibit you from making any further disclosure of this information unless further disclosure is expressly permitted by the written consent of the person to whom it pertains or as otherwise permitted by 42 CFR part 2. A general authorization for the release of medical or other information is NOT sufficient for this purpose. The Federal rules restrict any use of the information to criminally investigate or prosecute any alcohol or drug abuse patient.The records that you are about to access may contain highly sensitive health information, the redisclosure of which is protected by Article 27-F of the [facility] Public Health law. If you continue you may have access to information: Regarding HIV / AIDS; Provided by facilities licensed or operated by the [facility] Office of Mental Health; or Provided by the [facility] Office for People With Developmental Disabilities. If such information is present, then the following [facility] mandated warning applies: This information has been disclosed to you from confidential records which are protected by state law. State law prohibits you from making any further disclosure of this information without the specific written consent of the person to whom it pertains, or as otherwise permitted by law. Any unauthorized further disclosure in violation of state law may result in a fine or long-term sentence or both. A general authorization for the release of medical or other information is NOT sufficient authorization for further disc losure. Allergies and Adverse Reactions Type Description Substance Reaction Status Data Source(s ) Propensity to adverse reactions SULFA ANTIBIOTICS Sulfa Antibiot ics Anaphylaxis High Active [facility] High Allergy to substance Allergy to substance Allergy to substance [facility] ([facility]) Allergy to substance Allergy to substance Allergy to substance [facility] ([facility]) Allergy to substance Allergy to substance Allergy to substance [facility] ([facility]) Encounters Encounter Providers Location Date Indications Data Source(s ) Outpatient 07/19/2021 12:14:50 PM EDT - 021 01:00:28 PM EDT [facility] ([facility]) Khadijah Lamas LMSW: [address] [place] [id number], Ph. Attender: Khadijah Lamas [facility] 07/19/2021 12:00:00 AM EDT [facility] ([facility]) Emergency Attender: GISELE GOLDSTEIN MDConsultant: STAF F NON 06/20/2021 05:29:00 AM EDT - 06/20/2021 09:47:00 AM EDT [facility] Patient discharged. Outpatient Attender: RAINER LAYTON ONLINE COMMUNICATIONS SPECIALIST Physical Therapy 11:45:00 AM EDT [facility] ([facility]) Khadijah Lamas LMSW: [address] [place] [address], Ph. Attender: Khadijah Lamas [facility] 05/28/2021 12:00:00 AM EDT [facility] ([facility]) Outpatient 05/15/2021 08:31:44 AM EDT [facility] ([facility]) Outpatient Attender: Bruce HUYNH 05/15/20 08:24:26 AM EDT - 05/15/2021 09:19:50 AM EDT [facility] ([facility] ) Khadijah Lamas LMSW: [address] [place] [address], Ph. Attender: Khadijah Lamas [facility] 04/27/2021 12:00:00 AM EDT [facility] ([facility]) Khadijah Lamas LMSW: [address] [place] [address], Ph. Attender: Khadijah Lamas [facility] 04/27/2021 12:00:00 AM EDT [facility] ([facility]) Outpatient Attender: RAINER LAYTON NP Physical Therapy 03:30:00 PM EDT [facility] ([facility]) Khadijah Lamas LMSW: [address] [place] [address], Ph. Attender: Khadijah Lamas [facility] Medical 04/06/2021 12:00:00 AM EDT [facility] [address] [place] [address], Ph. Attender: Khadijah Lamas [facility] 04/06/2021 12:00:00 AM EDT [facility] ([facility] [address] [place] [address], Ph. Attender: Khadijah Lamas [facility] 04/06/2021 12:00:00 AM EDT [facility] [address] [place] [address], Ph. Attender: Khadijah Lamas [facility] 03/08/2021 12:00:00 AM EDT [facility] [address] [place] [address], Ph. Attender: Khadijah Lamas [facility] 03/08/2021 12:00:00 AM EDT [facility] ([facility]) [facility] [address] [place] [address], Ph. Attender: Khadijah Lamas [facility] Medical 03/08/2021 12:00:00 AM EDT [facility]) [facility] [address] [place] [address], Ph. Attender: Khadijah Lamas [facility] 03/08/2021 12:00:00 AM EDT [facility] ([facility]) Outpatient Attender: Fred Erickson: Fred Russellant: Ferd WORTHY 03/01/2021 01:58:25 PM EDT [facility] Khadijah Lamas, [facility]: [address] [place] [address], Ph. Attender: Khadijah Lamas [facility] 02/19/2021 12:00:00 AM EDT [facility] ([facility]) Khadijah Lamas, [facility] [address] [place] [address], Ph. Attender: Khadijah Lamas [facility] 02/19/2021 12:00:00 AM EDT [facility] ([facility]) [facility] [address] [place] [address], Ph. Attender: Khadijah Lamas [facility] 02/19/2021 12:00:00 AM EDT [facility] ([facility]) Khadijah Lamas, [facility] [address] [place] [address], Ph. Attender: Khadijah Lamas [facility] 02/19/2021 12:00:00 AM EDT [facility] ([facility]) Khadijah Lamas, [facility] [address] [place] [address], Ph. Attender: Khadijah Lamas [facility] 02/19/2021 12:00:00 AM EDT [facility] ([facility]) Khadijah Lamas, [facility]: [address] [place] [address], Ph. Attender: Khadijah Lamas [facility] 02/02/2021 12:00:00 AM EDT [facility] ([facility]) Khadijah Lamas, [facility]: [address], [place] [address], Ph. Attender: Khadijah Lamas [facility] Medical 02/02/2021 12:00:00 AM EDT [facility] ([facility]) Khadijah Lamas, [facility]: [address], [place] [address], Ph. Attender: Khadijah Lamas [facility] 02/02/2021 12:00:00 AM EDT [facility]) Khadijah Lamas, [facility] [address], [place] [address], Ph. Attender: Khadijah Lamas [facility] Medical 02/02/2021 12:00:00 AM EDT [facility]) Khadijah Lamas, [facility] [address], [place] [address], Ph. Attender: Khadijah Lamas [facility] Medical 02/02/2021 12:00:00 AM EDT [facility] ([facility]) [facility] [address], [place] [address], Ph. Attender: Khadijah Lamas [facility] Medical 02/02/2021 12:00:00 AM EDT [place] ([facility]) Khadijah Lamas, [facility] [address], [place] [address], Ph. Attender: Khadijah Lamas [facility] Medical 02/02/2021 12:00:00 AM EDT [facility]) HEBER AguilarBC: [address] [place] [address], Ph. Attender: Neelam Petty [facility] Medical 02/01/2021 12:00:00 AM EDT [place] ([facility]) Neelam Petty [facility]: [address], [place] [address], Ph. Attender: Neelam Petty [facility] Medical 02/01/2021 12:00:00 AM EDT [place] ([facility]) Neelam Petty [facility]: [address], [place] [address], Ph. Attender: Neelam Petty [facility] Medical 02/01/2021 12:00:00 AM EDT [facility]) Neelam Petty [facility]: [address], [place] [address], Ph. Attender: Neelam Petty [facility] Medical 02/01/2021 12:00:00 AM EDT [facility] ([facility]) Neelam Petty [facility]: [address], [place] [address], Ph. Attender: Neelam Petty [facility] Medical 02/01/2021 12:00:00 AM EDT [facility] ([facility]) Neelam Petty [facility]: [address], [place] [address], Ph. Attender: Neelam Petty [facility] Medical 02/01/2021 12:00:00 AM EDT [place] ([facility]) Neelam Petty [facility]: [address], [place] [address], Ph. Attender: Neelam Petty [facility] Medical 02/01/2021 12:00:00 AM EDT [facility] ([facility]) Outpatient Attender: Fred Zuritar: Fred MasonMOB.PAT 01/19/2021 09:33:54 AM EDT - 01/19/2021 10:03:42 AM EDT [facility] Outpatient Referrer: Fred PITTSMOB.PAT 09:13:29 AM EDT - 01/19/2021 09:13:33 AM EDT [facility] Inpatient Attender: Fred Smith er: Fred Zuritar: YVON GORDON DO [facility]SANDRA 01/01/2021 11:43:01 AM EDT - 01/24/2021 04:38:00 PM EDT [facility] Patient discharged. Khadijah Lamas [facility]: [address] [place] [address], Ph. Attender: Khadijah Lamas [facility] Medical 01/01/2021 12:00:00 AM EDT [place] ([facility]) Khadijah Lamas [facility]: [address] [place] [address], Ph. Attender: Khadijah Lamas [facility] Medical 01/01/2021 12:00:00 AM EDT [facility] ([facility]) Khadijah Lamas [facility]: [address] [place] [address], Ph. Attender: Khadijah Lamas [facility] Medical 01/01/2021 12:00:00 AM EDT [facility]) Khadijah Lamas [facility]: [address] [place] [address], Ph. Attender: Khadijah Lamas [facility] Medical 01/01/2021 12:00:00 AM EDT [facility]) Khadijah Lamas, [facility]: [address] [place] [address], Ph. Attender: Khadijah Lamas [facility] Medical 01/01/2021 12:00:00 AM EDT [facility]) Khadijah Lamas, [facility]: [address] [place] [address], Ph. Attender: Khadijah Lamas [facility] Medical 01/01/2021 12:00:00 AM EDT [facility]) Khadijah Lamas, [facility]: [address] [place] [address], Ph. Attender: Khadijah Lamas [facility] Medical 01/01/2021 12:00:00 AM EDT [facility]) Khadijah Lamas, [facility]: [address] [place] [address], Ph. Attender: Khadijah Lamas [facility] Medical 01/01/2021 12:00:00 AM EDT [facility] ([facility]) Outpatient Attender: Fred Fioreonsultant: Fred Lanier DIRK-NAILA 12/19/2020 12:07:19 PM EDT - 12/19/2020 10:51:17 AM EDT [facility] Outpatient Attender: Bruce HUYNH 12/05/19 04:12:27 PM EDT - 12/04/2020 04:39:07 PM EDT [facility] ([facility] ) Khadijah Lamas, [facility]: [address] [place] [address], Ph. Attender: Khadijah Lamas [facility] Medical 11/30/2020 12:00:00 AM EDT [place] ([facility]) Khadijah Lamas, [facility]: [address], [place] [address], Ph. Attender: Khadijah Lamas [facility] Medical 11/30/2020 12:00:00 AM EDT [place] ([facility]) Khadijah Lamas, [facility]: [address], [place] [address], Ph. Attender: Khadijah Lamas [facility] Medical 11/30/2020 12:00:00 AM EDT [facility]) Khadijah Lamas, [facility]: [address], [place] [address], Ph. Attender: Khadijah Lamas [facility] Medical 11/30/2020 12:00:00 AM EDT [facility] ([facility]) Khadijah Lamas, [facility]: [address], [place] [address], Ph. Attender: Khadijah Lamas [facility] Medical 11/30/2020 12:00:00 AM EDT [place] ([facility]) Khadijah Dejesusnico [facility]: [address], [place] [address], Ph. Attender: Khadijah Lamas [facility] Medical 11/30/2020 12:00:00 AM EDT [place] ([facility]) Khadijah Dejesusnico [facility]: [address], [place] [address], Ph. Attender: Khadijah Dejesusnico [facility] Medical 11/30/2020 12:00:00 AM EDT [facility] ([facility]) Khadijah Dejesusnico [employer]: [address], [place] [address], Ph. Attender: Khadijah Lamas [facility] Medical 11/30/2020 12:00:00 AM EDT RAJI ([facility]) Khadijah Lamas, [employer]: [address], [place] [address], Ph. Attender: Khadijah Lamas [facility] Medical 11/30/2020 12:00:00 AM EDT [facility] ([facility]) [facility] 11/28/2020 04:17:07 PM EDT [facility] Khadijah Lamas, [employer]: [address], [place] [address], Ph. Attender: Khadijah Lamas [facility] Medical 11/08/2020 12:00:00 AM EST RAJI ([facility]) Khadijah Lamas, [facility]: [address] [place] [address], Ph. Attender: Khadijah Lamas [facility] Medical 11/08/2020 12:00:00 AM EST RAJI ([facility]) Khadijah Lamas, [facility]: [address] [place] [address], Ph. Attender: Khadijah Lamas [facility] Medical 11/08/2020 12:00:00 AM EST RAJI ([facility]) Khadijah Lamas, [facility]: [address], [place] [address], Ph. Attender: Khadijah Lamas [facility] Medical 11/08/2020 12:00:00 AM EST [facility]JI ([facility]) Khadijah Lamas, [facility]: [address], [place] [address], Ph. Attender: Khadijah Lamas [facility] Medical 11/08/2020 12:00:00 AM EST RAJI ([facility]) Khadijah Lamas, [facility]: [address] [place] [address], Ph. Attender: Khadijah Lamas [facility] Medical 11/08/2020 12:00:00 AM EST RAJI ([facility]) Khadijah Lamas, [facility]: [address] [place] [address], Ph. Attender: Khadijah Lamas [facility] Medical 11/08/2020 12:00:00 AM EST [facility]JI ([facility]) Khadijah Lamas, [facility]: [address] [place] [address], Ph. Attender: Khadijah Lamas [facility] Medical 11/08/2020 12:00:00 AM EST RAJI ([facility]) Khadijah Lamas, [facility]: [address] [place] [address], Ph. Attender: Khadijah Lamas [facility] Medical 11/08/2020 12:00:00 AM MARCUS ALEGRIA ([facility]) [facility] [address] [place] [address], Ph. Attender: Khadijah Lamas [facility] Medical 11/08/2020 12:00:00 AM EST RAJI ([facility]) Outpatient Attender: Fred Villeda er: Tabitha Sandy MDConsultant: Fred WORTHY 11/07/2020 10:31:33 AM EST - 11/07/2020 12:10:49 PM EST [facility] Emergency Attender: GISELE GOLDSTEIN MDConsultant: STAF F NON 10/24/2020 09:39:00 AM EST - 10/24/2020 11:04:00 AM EST [facility] Patient discharged. Khadijah Lamas [facility]: [address] [place] [address], Ph. Attender: Khadijah Anjelicanico [facility] Medical 10/17/2020 12:00:00 AM EST RAJI ([facility]) Khadijah Lamas, [employer]: [address] [place] [address], Ph. Attender: Khadijah Anjelicanico [facility] Medical 10/17/2020 12:00:00 AM EST RAJI ([facility]) Khadijah Lamas, [employer]: [address] [place] [address], Ph. Attender: Khadijah Lamas [facility] Medical 10/17/2020 12:00:00 AM EST RAJI ([facility]) Khadijah Dejesusnico, [facility]: [address] [place] [address], Ph. Attender: Khadijah Anjelicanico [facility] Medical 10/17/2020 12:00:00 AM EST RAJI ([facility]) Khadijah Dejesusnico [facility]: [address] [place] [address], Ph. Attender: Khadijah Anjelicanico [facility] Medical 10/17/2020 12:00:00 AM EST RAJI ([facility]) Khadijah Dejesusnico [facility]: [address] [place] [address], Ph. Attender: Khadijah Lamas [facility] Medical 10/17/2020 12:00:00 AM EST RAJI ([facility]) Khadijah Anjelicanico [facility]: [address] [place] [address], Ph. Attender: Khadijah Lamas [facility] Medical 10/17/2020 12:00:00 AM EST RAJI ([facility]) Khadijah Lamas, [facility]: [address] [place] [address], Ph. Attender: Khadijah Lamas [facility] Medical 10/17/2020 12:00:00 AM EST RAJI ([facility]) Khadijah Lamas, [facility]: [address] [place] [address], Ph. Attender: Khadijah Lamas [facility] Medical 10/17/2020 12:00:00 AM EST [facility]JI ([facility]) [facility] [address] [place] [address], Ph. Attender: Khadijah Lamas [facility] Medical 10/17/2020 12:00:00 AM EST [facility]JI ([facility]) [facility] [address] [place] [address], Ph. Attender: Khadijah Lamas [facility] Medical 10/17/2020 12:00:00 AM EST RAJI ([facility]) Outpatient Attender: Tabitha Sandy MD Physical Therapy 10/06 10:00:00 AM EST [facility] ([facility]) OFFICE OUTPATIENT VISIT 15 MINUTES Attender: RAINER LAYTON NP Physical Therapy 09/25/2020 07:30:00 AM EST [facility] ([facility]) [facility] [address] [place] [address], Ph. Attender: Khadijah Lamas [facility] Medical 09/25/2020 12:00:00 AM EST RAJI ([facility]) Khadijah Lamas, [employer]: [address], [place] [address], Ph. Attender: Khadijah Lamas [facility] Medical 09/25/2020 12:00:00 AM EST RAJI ([facility]) Khadijah Lamas, [employer]: [address], [place] [address], Ph. Attender: Khadijah Lamas [facility] Medical 09/25/2020 12:00:00 AM EST RAJI ([facility]) Khadijah Lamas, [employer]: [address], [place] [address], Ph. Attender: Khadijah Dejesusnico [facility] Medical 09/25/2020 12:00:00 AM EST RAJI [facility]) Khadijah Lamas, [employer]: [address], [place] [address], Ph. Attender: Khadijah Lamas [facility] Medical 09/25/2020 12:00:00 AM EST RAJI ([facility]) Khadijah Lamas, [employer]: [address], [place] [address], Ph. Attender: Khadijah Dejesusnico [facility] Medical 09/25/2020 12:00:00 AM EST [facility]JI ([facility]) Khadijah Lamas, [employer]: [address], [place] [address], Ph. Attender: Khadijah Dejesusnico [facility] Medical 09/25/2020 12:00:00 AM EST RAJI ([facility]) Khadijah Lamas, [employer]: [address], [place] [address], Ph. Attender: Khadijahtia Lamas [facility] Medical 09/25/2020 12:00:00 AM EST RAJI ([facility]) Khadijah Lamas [facility]: [address] [place] [address], Ph. Attender: Khadijah Lamas [facility] Medical 09/25/2020 12:00:00 AM EST RAJI ([facility]) Khadijah Lamas [facility]: [address] [place] [address], Ph. Attender: Khadijah Lamas [facility] Medical 09/25/2020 12:00:00 AM EST RAJI ([facility]) Khadijah Lamas, [facility]: [address] [place] [address], Ph. Attender: Khadijah Lamas [facility] Medical 09/25/2020 12:00:00 AM EST RAJI ([facility]) Khadijah Lamas, [facility]: [address] [place] [address], Ph. Attender: Khadijah Lamas [facility] Medical 09/25/2020 12:00:00 AM EST RAJI ([facility]) Outpatient Attender: Tabitha Sandy MD Physical Therapy 09/12 08:45:00 AM EST [facility] ([facility]) [facility] [address] [place] [address], Ph. Attender: Khadijah Lamas [facility] Medical 08/31/2020 12:00:00 AM EST RAJI ([facility]) Khadijah Lamas, [facility]: [address] [place] [address], Ph. Attender: Khadijah Lamas [facility] Medical 08/31/2020 12:00:00 AM EST RAJI ([facility]) Khadijah Lamas, [facility]: [address], [place] [address], Ph. Attender: Khadijah Lamas [facility] Medical 08/31/2020 12:00:00 AM EST RAJI ([facility]) Khadijah Lamas, [employer]: [address], [place] [address], Ph. Attender: Khadijah Lamas [facility] Medical 08/31/2020 12:00:00 AM EST RAJI ([facility]) Khadijah Lamas, [facility]: [address], [place] [address], Ph. Attender: Khadijah Dejesusnico [facility] Medical 08/31/2020 12:00:00 AM EST RAJI ([facility]) Khadijah Lamas, [employer]: [address], [place] [address], Ph. Attender: Khadijah Lamas [facility] Medical 08/31/2020 12:00:00 AM EST RAJI ([facility]) Khadijah Lamas, [employer]: [address], [place] [address], Ph. Attender: Khadijah Lamas [facility] Medical 08/31/2020 12:00:00 AM EST RAJI ([facility]) Khadijah Lamas, [employer]: [address], [place] [address], Ph. Attender: Khadijah Lamas [facility] Medical 08/31/2020 12:00:00 AM EST RAJI ([facility]) Khadijah Lamas, [employer]: [address], [place] [address], Ph. Attender: Khadijah Adams [facility] Medical 08/31/2020 12:00:00 AM EST RAJI ([facility]) Khadijah Lamas [facility]: [address] [place] [address], Ph. Attender: Khadijah Lamas [facility] Medical 08/31/2020 12:00:00 AM EST RAJI ([facility]) Khadijah Lamas, [facility]: [address] [place] [address], Ph. Attender: Khadijah Lamas [facility] Medical 08/31/2020 12:00:00 AM EST RAJI ([facility]) Khadijah Lamas, [facility]: [address] [place] [address], Ph. Attender: Khadijah Lamas [facility] Medical 08/31/2020 12:00:00 AM EST RAJI ([facility]) Khadijah Lamas, [facility]: [address] [place] [address], Ph. Attender: Khadijah Lamas [facility] Medical 08/31/2020 12:00:00 AM EST [facility]JI ([facility]) OFFICE OUTPATIENT NEW 60 MINUTES Attender: RAINER LAYTON NP Ph ysical Therapy 08/30/2020 12:45:00 PM EST [facility] ([facility]) [facility] [address] [place] [address], Ph. Attender: Khadijah Lamas [facility] Medical 08/22/2020 12:00:00 AM EST RAJI ([facility]) Khadijah Lamas, [facility]: [address] [place] [address], Ph. Attender: Khadijah Lamas [facility] Medical 08/22/2020 12:00:00 AM EST RAJI ([facility]) Khadijah Lamas, [employer]: [address], [place] [address], Ph. Attender: Khadijah Lamas [facility] Medical 08/22/2020 12:00:00 AM EST RAJI ([facility]) Khadijah Lamas, [employer]: [address], [place] [address], Ph. Attender: Khadijah Lamas [facility] Medical 08/22/2020 12:00:00 AM EST RAJI ([facility]) Khadijah Lamas, [employer]: [address], [place] [address], Ph. Attender: Khadijah Dejesusnico [facility] Medical 08/22/2020 12:00:00 AM EST [facility]JI ([facility]) Khadijah Lamas, [employer]: [address], [place] [address], Ph. Attender: Khadijah Lamas [facility] Medical 08/22/2020 12:00:00 AM EST [facility]I ([facility]) Khadijah Lamas, [employer]: [address], [place] [address], Ph. Attender: Khadijah Lamas [facility] Medical 08/22/2020 12:00:00 AM EST [facility]JI ([facility]) Khadijah Lamas, [employer]: [address], [place] [address], Ph. Attender: Khadijah Lamas [facility] Medical 08/22/2020 12:00:00 AM EST RAJI ([facility]) Khadijah Lamas, [employer]: [address], [place] [address], Ph. Attender: Khadijah Lamas [facility] Medical 08/22/2020 12:00:00 AM EST RAJI ([facility]) Khadijah Lamas [facility]: [address], [place] [address], Ph. Attender: Khadijah Lamas [facility] Medical 08/22/2020 12:00:00 AM EST [facility]JI ([facility]) Khadijah Lamas, [facility]: [address], [place] [address], Ph. Attender: Khadijah Lamas [facility] Medical 08/22/2020 12:00:00 AM EST [facility]JI ([facility]) Khadijah Lamas, [facility]: [address], [place] [address], Ph. Attender: Khadijah Lamas [facility] Medical 08/22/2020 12:00:00 AM EST [facility]JI ([facility]) Khadijah Lamas, [facility]: [address] [place] [address], Ph. Attender: Khadijah Lamas [facility] Medical 08/22/2020 12:00:00 AM EST [facility] ([facility]) [facility] [address] [place] [address], Ph. Attender: Khadijah Lamas [facility] Medical 08/22/2020 12:00:00 AM EST RAJI ([facility]) ABBE Aguilar: [address], [place] [address], Ph. Attender: Neelam SHAH [facility] Medical 08/17/2020 12:00:00 AM EST RAJI ([facility]) HEBER AguilarBC: [address], [place] [address], Ph. Attender: Neelam Petty [facility] Medical 08/17/2020 12:00:00 AM EST RAJI ([facility]) Neelam Petty [facility]: [address], [place] [address], Ph. Attender: Neelam Petty [facility] Medical 08/17/2020 12:00:00 AM EST RAJI ([facility]) Neelam Petty [facility]: [address], [place] [address], Ph. Attender: Neelam Petty [facility] Medical 08/17/2020 12:00:00 AM EST RAJI ([facility]) Neelam Petty [facility]: [address], [place] [address], Ph. Attender: Neelam Petty [facility] Medical 08/17/2020 12:00:00 AM EST RAJI ([facility]) Neelam Petty [facility]: [address], [place] [address], Ph. Attender: Neelam Petty [facility] Medical 08/17/2020 12:00:00 AM EST RAJI ([facility]) Neelam Petty [facility]: [address], [place] [address], Ph. Attender: Neelam Petty [facility] Medical 08/17/2020 12:00:00 AM EST RAJI ([facility]) KYRA AguilarPIsabella: [address], [place] [address], Ph. Attender: Neelam Petty [facility] Medical 08/17/2020 12:00:00 AM EST RAJI ([facility]) Neelam Petty [facility] [facility]: [address], [place] [address], Ph. Attender: Neelam Petty [facility] Medical 08/17/2020 12:00:00 AM EST RAJI ([facility]) Neelam Petty [facility]: [address], [place] [address], Ph. Attender: Neelam Petty [facility] Medical 08/17/2020 12:00:00 AM EST RAJI ([facility]) Neelam Petty [facility]: [address], [place] [address], Ph. Attender: Neelam Petty [facility] Medical 08/17/2020 12:00:00 AM EST RAJI ([facility]) Neelam Petty [facility]: [address], [place] [address], Ph. Attender: Neelam Petty [facility] Medical 08/17/2020 12:00:00 AM EST RAJI ([facility]) Neelam Petty [facility]: [address], [place] [address], Ph. Attender: Neelam Petty [facility] Medical 08/17/2020 12:00:00 AM EST RAJI ([facility]) Neelam Petty [facility]: [address], [place] [address], Ph. Attender: Neelam Petty [facility] Medical 08/17/2020 12:00:00 AM EST RAJI ([facility]) Neelam Petty [facility]-: [address] [place] [address], Ph. Attender: Neelam Petty [facility] Medical 08/17/2020 12:00:00 AM EST RAJI ([facility]) Kahdijah Lamas [facility]: [address], [place] [address], Ph. Attender: Khadijah Lamas [facility] Medical 08/04/2020 12:00:00 AM EST RAJI ([facility]) Khadijah Lamas [facility] [address], [place] [address], Ph. Attender: Khadijah Lamas [facility] Medical 08/04/2020 12:00:00 AM EST RAJI ([facility]) Khadijah Lamas [facility] [address], [place] [address], Ph. Attender: Khadijah Lamas [facility] Medical 08/04/2020 12:00:00 AM EST RAJI ([facility]) Khadijah Lamas [facility] [address], [place] [address], Ph. Attender: Khadijah Lamas [facility] Medical 08/04/2020 12:00:00 AM EST RAJI ([facility]) Khadijah Lamas [facility]: [address], [place] [address], Ph. Attender: Khadijah Lamas [facility] Medical 08/04/2020 12:00:00 AM EST RAJI ([facility]) Khadijah Lamas [facility]: [address] [place] [address], Ph. Attender: Khadijah Lamas [facility] Medical 08/04/2020 12:00:00 AM EST RAJI ([facility]) Khadijah Lamas, [employer]: [address] [place] [address], Ph. Attender: Khadijah Lamas [facility] Medical 08/04/2020 12:00:00 AM EST RAJI ([facility]) Khadijah Lamas, [facility]: [address] [place] [address], Ph. Attender: Khadijah Lamas [facility] Medical 08/04/2020 12:00:00 AM EST RAJI ([facility]) Khadijah Lamas, [facility]: [address] [place] [address], Ph. Attender: Khadijah Lamas [facility] Medical 08/04/2020 12:00:00 AM EST RAJI ([facility]) Khadijah Lamas, [facility]: [address] [place] [address], Ph. Attender: Khadijah Lamas [facility] Medical 08/04/2020 12:00:00 AM EST RAJI ([facility]) Khadijah Lamas, [facility]: [address] [place] [address], Ph. Attender: Khadijah Lamas [facility] Medical 08/04/2020 12:00:00 AM EST RAJI ([facility]) Khadijah Lamas, [facility]: [address] [place] [address], Ph. Attender: Khadijah Lamas [facility] Medical 08/04/2020 12:00:00 AM EST RAJI ([facility]) Khadijah Lamas, [facility]: [address], [place] [address], Ph. Attender: Khadijah Lamas [facility] Medical 08/04/2020 12:00:00 AM EST RAJI ([facility]) Khadijah Lamas, [employer]: [address], [place] [address], Ph. Attender: Khadijah Lamas [facility] Medical 08/04/2020 12:00:00 AM MARCUS ALEGRIA ([facility]) Khadijah Lamas, [facility]: [address], [place] [address], Ph. Attender: Khadijah Dejesusnico [facility] Medical 08/04/2020 12:00:00 AM MARCUS ALEGRIA ([facility]) Khadijah Lamas, [facility]: [address], [place] [address], Ph. Attender: Khadijah Dejesusnico [facility] Medical 08/04/2020 12:00:00 AM MARCUS ALEGRIA ([facility]) Khadijah Lamas, [employer]: [address], [place] [address], Ph. Attender: Khadijah Dejesusnico [facility] Medical 07/24/2020 12:00:00 AM MARCUS ALEGRIA ([facility]) Khadijah Lamas, [employer]: [address], [place] [address], Ph. Attender: Khadijah Dejesusnico [facility] Medical 07/24/2020 12:00:00 AM MARCUS ALEGRIA ([facility]) Khadijah Lamas, [facility]: [address], [place] [address], Ph. Attender: Khadijah Anjelicanico [facility] Medical 07/24/2020 12:00:00 AM EST RAJI ([facility]) Khadijah Lamas, [facility]: [address], [place] [address], Ph. Attender: Khadijah Lamas [facility] Medical 07/24/2020 12:00:00 AM EST RAJI ([facility]) Khadijah Lamas, [employer]: [address], [place] [address], Ph. Attender: Khadijah Dejesusnico [facility] Medical 07/24/2020 12:00:00 AM EST RAJI ([facility]) Khadijah Lamas, [employer]: [address], [place] [address], Ph. Attender: Khadijah Anjelicanico [facility] Medical 07/24/2020 12:00:00 AM EST RAJI ([facility]) Khadijah Lamas, [facility]: [address], [place] [address], Ph. Attender: Khadijah Dejesusnico [facility] Medical 07/24/2020 12:00:00 AM EST RAJI ([facility]) Khadijah Lamas, [facility]: [address], [place] [address], Ph. Attender: Khadijah Anjelicanico [facility] Medical 07/24/2020 12:00:00 AM EST RAJI ([facility]) Khadijah Lamas, [facility]: [address], [place] [address], Ph. Attender: Khadijah Anjelicanico [facility] Medical 07/24/2020 12:00:00 AM EST RAJI ([facility]) Khadijah Dejesusnico, [facility]: [address], [place] [address], Ph. Attender: Khadijah Lamas [facility] Medical 07/24/2020 12:00:00 AM EST RAJI ([facility]) Khadijah Lamas, [facility]: [address], [place] [address], Ph. Attender: Khadijah Lamas [facility] Medical 07/24/2020 12:00:00 AM EST RAJI ([facility]) Khadijah Lamas, [employer]: [address], [place] [address], Ph. Attender: Khadijah Lamas [facility] Medical 07/24/2020 12:00:00 AM EST RAJI ([facility]) Khadijah Lamas, [facility]: [address], [place] [address], Ph. Attender: Khadijah Lamas [facility] Medical 07/24/2020 12:00:00 AM EST RAJI ([facility]) Khadijah Lamas, [facility]: [address], [place] [address], Ph. Attender: Khadijah Lamas [facility] Medical 07/24/2020 12:00:00 AM EST RAJI ([facility]) Khadijah Lamas, [facility]: [address], [place] [address], Ph. Attender: Khadijah Lamas [facility] Medical 07/24/2020 12:00:00 AM EST RAJI ([facility]) Khadijah Lamas, [facility]: [address], [place] [address], Ph. Attender: Khadijah Lamas [facility] Medical 07/24/2020 12:00:00 AM EST RAJI ([facility]) Khadijah Dejesusnico, [facility]: [address] [place] [address], Ph. Attender: Khadijah Anjelicanico [facility] Medical 07/24/2020 12:00:00 AM EST RAJI ([facility]) Outpatient [address] [facility] [place] [address] 07/11/2020 12:00:00 AM EDT eCW1 ([facility]) [facility] [address] [place] [address], Ph. Attender: Khadijah Lamas [facility] Medical 07/10/2020 12:00:00 AM EDT RAJI ([facility]) [facility] [address] [place] [address], Ph. Attender: Khadijah Lamas [facility] Medical 07/10/2020 12:00:00 AM EDT RAJI ([facility]) [facility] [address] [place] [address], Ph. Attender: Khadijah Lamas [facility] Medical 07/10/2020 12:00:00 AM EDT RAJI ([facility]) [facility] [address] [place] [address], Ph. Attender: Khadijah Lamas [facility] Medical 07/10/2020 12:00:00 AM EDT RAJI ([facility]) Khadijah Lamas [facility]: [address] [place] [address], Ph. Attender: Khadijah Lamas [facility] Medical 07/10/2020 12:00:00 AM EDT RAJI ([facility]) Khadijah Lamas [facility]: [address] [place] [address], Ph. Attender: Khadijah Lamas [facility] Medical 07/10/2020 12:00:00 AM EDT [facility]) Khadijah Lamas, [facility]: [address] [place] [address], Ph. Attender: Khadijah Lamas [facility] Medical 07/10/2020 12:00:00 AM EDT [facility]) Khadijah Lamas, [facility]: [address] [place] [address], Ph. Attender: Khadijah Lamas [facility] Medical 07/10/2020 12:00:00 AM EDT [facility]) Khadijah Lamas, [facility]: [address] [place] [address], Ph. Attender: Khadijah Lamas [facility] Medical 07/10/2020 12:00:00 AM EDT [facility]) Khadijah Lamas, [facility]: [address] [place] [address], Ph. Attender: Khadijah Lamas [facility] Medical 07/10/2020 12:00:00 AM [facility] Khadijah Lamas, [facility]: [address] [place] [address], Ph. Attender: Khadijah Lamas [facility] Medical 07/10/2020 12:00:00 AM EDT WICHITA ([facility]) Khadijah Lamas, [facility]: [address] [place] [address], Ph. Attender: Khadijah Lamas [facility] Medical 07/10/2020 12:00:00 AM EDT WICHITA ([facility]) Khadijah Lamas, [facility]: [address], [place] [address], Ph. Attender: Khadijah Lamas [facility] Medical 07/10/2020 12:00:00 AM EDT WICHITA ([facility]) Khadijah Lamas, [facility]: [address], [place] [address], Ph. Attender: Khadijah Lamas [facility] Medical 07/10/2020 12:00:00 AM EDT WICHITA ([facility]) Khadijah Lamas [facility] [address], [place] [address], Ph. Attender: Khadijah Lamas [facility] Medical 07/10/2020 12:00:00 AM EDT RAJI ([facility]) Khadijah Lamas [facility]: [address], [place] [address], Ph. Attender: Khadijah Lamas [facility] Medical 07/10/2020 12:00:00 AM EDT RAJI ([facility]) Khadijah Lamas, [facility]: [address], [place] [address], Ph. Attender: Khadijah Lamas [facility] Medical 07/10/2020 12:00:00 AM EDT RAJI ([facility]) Khadijah Lamas, [facility]: [address], [place] [address], Ph. Attender: Khadijah Lamas [facility] Medical 07/10/2020 12:00:00 AM EDT WICHITA ([facility]) Outpatient Attender: ALYSSA SHAH FP 2020 01:33:00 P M EDT [facility] Outpatient Attender: ALYSSA SHAH FP 06/28/2020 04:07:00 P M EDT [facility] Immunizations Vaccine Date Status Description Data Source(s) New in 2011. IIV4 08/17/2020 02:13:00 PM EST completed 0.5 mL RAJI ([facility]) New in 2011. IIV4 08/17/2020 02:13:00 PM EST completed 0.5 mL RAJI ([facility]) New in 2011. IIV4 08/17/2020 02:13:00 PM EST completed 0.5 mL RAJI ([facility]) New in 2011. IIV4 08/17/2020 02:13:00 PM EST completed .5 mL RAJI ([facility]) New in 2011. IIV4 08/17/2020 02:13:00 PM EST completed .5 mL RAJI ([facility]) New in 2011. IIV4 08/17/2020 02:13:00 PM EST completed 0.5 mL RAJI ([facility]) New in 2011. IIV4 08/17/2020 02:13:00 PM EST completed .5 mL RAJI ([facility]) New in 2011. IIV4 08/17/2020 02:13:00 PM EST completed .5 mL RAJI ([facility]) New in 2011. IIV4 08/17/2020 02:13:00 PM EST completed .5 mL RAJI ([facility]) New in 2011. IIV4 08/17/2020 02:13:00 PM EST completed .5 mL RAJI ([facility]) New in 2011. IIV4 08/17/2020 02:13:00 PM EST completed .5 mL RAJI ([facility]) New in 2011. IIV4 08/17/2020 02:13:00 PM EST completed .5 mL RAJI ([facility]) New in 2011. IIV4 08/17/2020 02:13:00 PM EST completed .5 mL RAJI ([facility]) New in 2011. IIV4 08/17/2020 02:13:00 PM EST completed .5 mL RAJI ([facility]) New in 2011. IIV4 08/17/2020 02:13:00 PM EST completed .5 mL RAJI ([facility]) Medications Medication Brand Name Start Date Product Form Dose Route Admi nistrative Instructions Pharmacy Instructions Status Indications Reaction Description Data Source(s) oxyCODONE-acetaminophen (PERCOCET) 5-325 MG 1 tablet 01/24/2021 03:01:37 PM EDT 1 {tbl} Oral active [Order 1 Start] Name: oxyCODONE-acetaminophen (PERCOCET) 5-325 MG 1 tablet Signed Summary: 1 tablet, Oral, Every 4 hours PRN, moderate pain (4-6), Starting on Fri01/24/21 at 1501, For 24 hours, PACU & Post-op [Order 1 End] [Order 2 Start] Name: oxyCODONE-acetaminophen (PERCOCET) 5-325 MG 2 tablet Signed Summary: 2 tablet, Oral, Every 4 hours PRN, severe pain (7-10), Starting on Fri01/24/21 at 1501, For 24 hours, PACU & Post-op [Order 2 End] [facility] Medication administered onsite normal saline flush 0.9 % injection 3 mL [id number] 01/24/2021 03:00:00 PM EDT 3 mL Intravenous active 3 mL , Intravenous, Every 8 hours (scheduled), First dose on Fri01/24/21 at 1500, PACU (only)
flush per protocol, D/C Main IV fluid if appropriate
[facility] Medication administered onsite Hydroxyzine Hydrochloride 25 MG Oral Tablet hydrOXYzin e (ATARAX) tablet 25 mg hydrOXYzine (ATARAX) tablet 25 mg 01/24/2021 02:27:31 PM EDT 25 mg Oral active 25 mg, Oral, Once as needed, anxiety, Starting on Fri01/24/21 at 1427, For 1 dose, PACU (only) [facility] Medication administered onsite ondansetron (ZOFRAN) injection 4 mg [id number] 01/24/2021 02:27:3 1 PM EDT 4 mg Intravenous active 4 mg, In travenous, As needed, nausea, vomiting, Starting on Fri01/24/21 at 1427, For 1 dose, PACU (only)
If not given in last 4 hours
[facility] Medication administered onsite fentaNYL Citrate (PF) (SUBLIMAZE) injection 25 mcg [id number] 01/24/2021 02:27:30 PM EDT 25 ug Intravenous active 25 mcg, Intravenous, Every 5 min PRN, moderate pain (4-6), Starting on Fri01/24/21 at 1427, For 5 doses, PACU (only) [facility] Medication administered onsite sodium chloride (PF) (NS) 0.9 % flush 3 mL 01/24/2021 12:2 3:37 PM EDT 3 mL Intravenous active Thyroid nodule [Order 1 Start] Name: Maintain IV access Signed Summary: Routine, Until discontinued, Starting on Fri01/24/21 at 1224, Until Specified
Pre-op [Order 1 End] [Order 2 Start] Name: sodium chloride (P F) (NS) 0.9 % flush 3 mL Signed Summary: 3 mL, Intravenous, As needed, line care, Starting on Fri01/24/21 at 1223, Pre-op [Order 2 End] [facility] Thyroid nodule Medication administered onsite Magnesium Chloride 0.76950 MEQ/ML / Pota ssium Chloride 0.0497 MEQ/ML / Sodium Acetate 0.0163 MEQ/ML / Sodium Chloride 0.0899 MEQ/ML / Sodium gluconate 5.02 MG/ML Injectable Solution [Normosol-R] electrolyte-R (NORMOSOL-R/PLASMALYTE-R) solution electrolyte-R (NORMOSOL-R/PLASMALYTE-R) solution 01/24 12:00:00 PM EDT Intravenous active at 1 00 mL/hr, Intravenous, Continuous, Starting on Fri01/24/21 at 1200, Pre-op [facility] Medication administered onsite Lillow Lillow 08/30/2020 12:00:00 AM EST ORAL active MEDENT ([facility]) Estradiol 0.5 MG Oral Tablet Estradiol 08/30/2020 12:00:00 AM EST ORAL completed MEDENT ([facility]) Levora 0.15/30 (28) 0.15-30 MG-MCG Levora 0.15/30 (28) 0.15- 30 MG-MCG 07/11/2020 12:00:00 AM EDT 1.0 {tablet} active Levora 0.15/30 (28) 0.15-30 MG-MCG eCW1 ([facility]) Hydroxyzine Hydrochloride 25 MG Oral Tablet hydroxyzin e HCl 25 mg tablet hydroxyzine HCl 25 mg tablet completed hydroxyzine hydrochloride 25 MG Oral Tablet RAJI ([facility]) Acetaminophen 300 MG / Codeine Phosphate 30 MG Oral Tablet acetaminophen 300 mg- codeine 30 mg tablet acetaminophen 300 mg-codeine 30 mg tablet completed acetaminophen 300 MG / codeine p hosphate 30 MG Oral Tablet RAJI ([facility]) Acetaminophen 300 MG / Codeine Phosphate 30 MG Oral Tablet acetaminophen 300 mg- codeine 30 mg tablet acetaminophen 300 mg-codeine 30 mg tablet completed acetaminophen 300 MG / codeine p hosphate 30 MG Oral Tablet RAJI ([facility]) Ketorolac Tromethamine 10 MG Oral Tablet ketorolac 10 mg tablet ketorolac 10 mg tablet completed ketorolac trome thamine 10 MG Oral Tablet RAJI ([facility]) Phenazopyridine hydrochloride 200 MG Ora l Tablet phenazopyridine 200 mg tablet TAKE ONE TABLET BY MOUTH THREE TIMES A DAY FOR 2 DAYS phenazopyridine 200 mg tablet TAKE ONE TABLET BY MOUTH THREE TIMES A DAY FOR 2 DAYS completed phenazopyridine hydrochloride 20 0 MG Oral Tablet RAJI ([facility]) Acetaminophen 300 MG / Codeine Phosphate 30 MG Oral Tablet acetaminophen 300 mg- codeine 30 mg tablet acetaminophen 300 mg-codeine 30 mg tablet completed acetaminophen 300 MG / codeine p hosphate 30 MG Oral Tablet RAJI ([facility]) Hydroxyzine Hydrochloride 25 MG Oral Tablet hydroxyzin e HCl 25 mg tablet hydroxyzine HCl 25 mg tablet completed hydroxyzine hydrochloride 25 MG Oral Tablet RAJI ([facility]) Prednisone 20 MG Oral Tablet prednisone 20 mg tablet TAKE TWO TABLETS BY MOUTH EVERY DAY prednisone 20 mg tablet TAKE TWO TABLETS BY MOUTH EVERY DAY completed prednisone 20 MG Oral Tablet RAJI ([facility]) Cefuroxime 500 MG Oral Tablet cefuroxime axetil 500 mg tablet cefuroxime axetil 500 mg tablet completed cefuroxi me 500 MG Oral Tablet RAJI ([facility]) Hydroxyzine Hydrochloride 25 MG Oral Tablet hydroxyzin e HCl 25 mg tablet hydroxyzine HCl 25 mg tablet completed hydroxyzine hydrochloride 25 MG Oral Tablet RAJI ([facility]) Ketorolac Tromethamine 10 MG Oral Tablet ketorolac 10 mg tablet ketorolac 10 mg tablet completed ketorolac trome thamine 10 MG Oral Tablet RAJI ([facility]) Ibuprofen 800 MG Oral Tablet ibuprofen 800 mg tablet ibuprofen 8 00 mg tablet completed ibuprofen 800 MG Oral Tablet RAJI ([facility]) Cefuroxime 500 MG Oral Tablet cefuroxime axetil 500 mg tablet cefuroxime axetil 500 mg tablet completed cefuroxi me 500 MG Oral Tablet RAJI ([facility]) Hydroxyzine Hydrochloride 25 MG Oral Tablet hydroxyzin e HCl 25 mg tablet hydroxyzine HCl 25 mg tablet completed hydroxyzine hydrochloride 25 MG Oral Tablet RAJI ([facility]) Ibuprofen 800 MG Oral Tablet ibuprofen 800 mg tablet ibuprofen 8 00 mg tablet completed ibuprofen 800 MG Oral Tablet RAJI ([facility]) Prednisone 20 MG Oral Tablet prednisone 20 mg tablet TAKE TWO TABLETS BY MOUTH EVERY DAY prednisone 20 mg tablet TAKE TWO TABLETS BY MOUTH EVERY DAY completed prednisone 20 MG Oral Tablet RAJI ([facility]) Doxycycline Monohydrate 100 MG Oral Caps ule doxycycline monohydrate 100 mg capsule doxycycline monohydrate 100 mg capsule completed doxycycline monohydrate 100 MG Oral Capsule RAJI ([facility]) Ibuprofen 800 MG Oral Tablet ibuprofen 800 mg tablet ibuprofen 8 00 mg tablet completed ibuprofen 800 MG Oral Tablet RAJI ([facility]) Ergocalciferol 10802 UNT Oral Capsule Vi tamin D2 1,250 mcg (50,000 unit) capsule Vitamin D2 1,250 mcg (50,000 unit) capsule completed ergocalciferol 1.25 MG Oral Capsule [facility] ([facility]) Cefuroxime 500 MG Oral Tablet cefuroxime axetil 500 mg tablet cefuroxime axetil 500 mg tablet completed cefuroxi me 500 MG Oral Tablet [facility] ([facility]) Doxycycline Monohydrate 100 MG Oral Caps ule doxycycline monohydrate 100 mg capsule doxycycline monohydrate 100 mg capsule completed doxycycline monohydrate 100 MG Oral Capsule [facility] ([facility]) Hydroxyzine Hydrochloride 25 MG Oral Tablet hydroxyzin e HCl 25 mg tablet hydroxyzine HCl 25 mg tablet completed hydroxyzine hydrochloride 25 MG Oral Tablet [facility] ([facility]) Doxycycline Monohydrate 100 MG Oral Caps ule doxycycline monohydrate 100 mg capsule doxycycline monohydrate 100 mg capsule completed doxycycline monohydrate 100 MG Oral Capsule [facility] ([facility]) Acetaminophen 300 MG / Codeine Phosphate 30 MG Oral Tablet acetaminophen 300 mg- codeine 30 mg tablet acetaminophen 300 mg-codeine 30 mg tablet completed acetaminophen 300 MG / codeine p hosphate 30 MG Oral Tablet [facility] ([facility]) Hydroxyzine Hydrochloride 25 MG Oral Tablet hydroxyzin e HCl 25 mg tablet hydroxyzine HCl 25 mg tablet completed hydroxyzine hydrochloride 25 MG Oral Tablet [facility] ([facility]) Cefuroxime 500 MG Oral Tablet cefuroxime axetil 500 mg tablet cefuroxime axetil 500 mg tablet completed cefuroxi me 500 MG Oral Tablet [facility] ([facility]) Doxycycline Monohydrate 100 MG Oral Caps ule doxycycline monohydrate 100 mg capsule doxycycline monohydrate 100 mg capsule completed doxycycline monohydrate 100 MG Oral Capsule [facility] ([facility]) Ibuprofen 800 MG Oral Tablet ibuprofen 800 mg tablet ibuprofen 8 00 mg tablet completed ibuprofen 800 MG Oral Tablet [facility] ([facility]) Phenazopyridine hydrochloride 200 MG Ora l Tablet phenazopyridine 200 mg tablet TAKE ONE TABLET BY MOUTH THREE TIMES A DAY FOR 2 DAYS phenazopyridine 200 mg tablet TAKE ONE TABLET BY MOUTH THREE TIMES A DAY FOR 2 DAYS completed phenazopyridine hydrochloride 20 0 MG Oral Tablet [facility] ([facility]) Hydroxyzine Hydrochloride 25 MG Oral Tablet hydroxyzin e HCl 25 mg tablet hydroxyzine HCl 25 mg tablet completed hydroxyzine hydrochloride 25 MG Oral Tablet [facility] ([facility]) Ibuprofen 800 MG Oral Tablet ibuprofen 800 mg tablet ibuprofen 8 00 mg tablet completed ibuprofen 800 MG Oral Tablet [facility] ([facility]) Acetaminophen 300 MG / Codeine Phosphate 30 MG Oral Tablet acetaminophen 300 mg- codeine 30 mg tablet acetaminophen 300 mg-codeine 30 mg tablet completed acetaminophen 300 MG / codeine p hosphate 30 MG Oral Tablet [facility] ([facility]) Cefuroxime 500 MG Oral Tablet cefuroxime axetil 500 mg tablet cefuroxime axetil 500 mg tablet completed cefuroxi me 500 MG Oral Tablet [facility] ([facility]) Ergocalciferol 63366 UNT Oral Capsule Vi tamin D2 1,250 mcg (50,000 unit) capsule Vitamin D2 1,250 mcg (50,000 unit) capsule completed ergocalciferol 1.25 MG Oral Capsule [facility] ([facility]) Ketorolac Tromethamine 10 MG Oral Tablet ketorolac 10 mg tablet ketorolac 10 mg tablet completed ketorolac trome thamine 10 MG Oral Tablet [facility] ([facility]) Ketorolac Tromethamine 10 MG Oral Tablet ketorolac 10 mg tablet ketorolac 10 mg tablet completed ketorolac trome thamine 10 MG Oral Tablet [facility] ([facility]) Hydroxyzine Hydrochloride 25 MG Oral Tablet hydroxyzin e HCl 25 mg tablet hydroxyzine HCl 25 mg tablet completed hydroxyzine hydrochloride 25 MG Oral Tablet [facility] ([facility]) Acetaminophen 300 MG / Codeine Phosphate 30 MG Oral Tablet acetaminophen 300 mg- codeine 30 mg tablet acetaminophen 300 mg-codeine 30 mg tablet completed acetaminophen 300 MG / codeine p hosphate 30 MG Oral Tablet [facility] ([facility]) Doxycycline Monohydrate 100 MG Oral Caps ule doxycycline monohydrate 100 mg capsule doxycycline monohydrate 100 mg capsule completed doxycycline monohydrate 100 MG Oral Capsule [facility] ([facility]) Acetaminophen 300 MG / Codeine Phosphate 30 MG Oral Tablet acetaminophen 300 mg- codeine 30 mg tablet acetaminophen 300 mg-codeine 30 mg tablet completed acetaminophen 300 MG / codeine p hosphate 30 MG Oral Tablet [facility] ([facility]) Cefuroxime 500 MG Oral Tablet cefuroxime axetil 500 mg tablet cefuroxime axetil 500 mg tablet completed cefuroxi me 500 MG Oral Tablet [facility] ([facility]) Acetaminophen 300 MG / Codeine Phosphate 30 MG Oral Tablet acetaminophen 300 mg- codeine 30 mg tablet acetaminophen 300 mg-codeine 30 mg tablet completed acetaminophen 300 MG / codeine p hosphate 30 MG Oral Tablet [facility]) Prednisone 20 MG Oral Tablet prednisone 20 mg tablet TAKE TWO TABLETS BY MOUTH EVERY DAY prednisone 20 mg tablet TAKE TWO TABLETS BY MOUTH EVERY DAY completed prednisone 20 MG Oral Tablet [facility] ([facility]) Acetaminophen 300 MG / Codeine Phosphate 30 MG Oral Tablet acetaminophen 300 mg- codeine 30 mg tablet acetaminophen 300 mg-codeine 30 mg tablet completed acetaminophen 300 MG / codeine p hosphate 30 MG Oral Tablet [facility] ([facility]) Phenazopyridine hydrochloride 200 MG Ora l Tablet phenazopyridine 200 mg tablet TAKE ONE TABLET BY MOUTH THREE TIMES A DAY FOR 2 DAYS phenazopyridine 200 mg tablet TAKE ONE TABLET BY MOUTH THREE TIMES A DAY FOR 2 DAYS completed phenazopyridine hydrochloride 20 0 MG Oral Tablet [facility]) NITROFURANTOIN, MACROCRYSTALS 25 MG / Ni trofurantoin, Monohydrate 75 MG Oral Capsule nitrofurantoin monohydrate/macrocrystals 100 mg capsule TAKE ONE CAPSULE BY MOUTH TWICE A DAY FOR 7 DAYS nitrofurantoin monohydrate/macrocrystals 100 mg capsule TAKE ONE CAPSULE BY MOUTH TWICE A DAY FOR 7 DAYS completed nitrofurantoin, macrocrystal s 25 MG / nitrofurantoin, monohydrate 75 MG Oral Capsule [facility]) Cefuroxime 500 MG Oral Tablet cefuroxime axetil 500 mg tablet cefuroxime axetil 500 mg tablet completed cefuroxi me 500 MG Oral Tablet [facility]) Prednisone 20 MG Oral Tablet prednisone 20 mg tablet TAKE TWO TABLETS BY MOUTH EVERY DAY prednisone 20 mg tablet TAKE TWO TABLETS BY MOUTH EVERY DAY completed prednisone 20 MG Oral Tablet [facility] ([facility]) Ibuprofen 800 MG Oral Tablet ibuprofen 800 mg tablet ibuprofen 8 00 mg tablet completed ibuprofen 800 MG Oral Tablet [facility]) Ibuprofen 800 MG Oral Tablet ibuprofen 800 mg tablet ibuprofen 8 00 mg tablet completed ibuprofen 800 MG Oral Tablet [facility] ([facility]) Ergocalciferol 04240 UNT Oral Capsule Vi tamin D2 1,250 mcg (50,000 unit) capsule Vitamin D2 1,250 mcg (50,000 unit) capsule completed ergocalciferol 1.25 MG Oral Capsule [facility] ([facility]) Acetaminophen 300 MG / Codeine Phosphate 30 MG Oral Tablet acetaminophen 300 mg- codeine 30 mg tablet acetaminophen 300 mg-codeine 30 mg tablet completed acetaminophen 300 MG / codeine p hosphate 30 MG Oral Tablet [facility] ([facility]) Hydroxyzine Hydrochloride 25 MG Oral Tablet hydroxyzin e HCl 25 mg tablet hydroxyzine HCl 25 mg tablet completed hydroxyzine hydrochloride 25 MG Oral Tablet [facility] ([facility]) Cefuroxime 500 MG Oral Tablet cefuroxime axetil 500 mg tablet cefuroxime axetil 500 mg tablet completed cefuroxi me 500 MG Oral Tablet [facility] ([facility]) Cefuroxime 500 MG Oral Tablet cefuroxime axetil 500 mg tablet cefuroxime axetil 500 mg tablet completed cefuroxi me 500 MG Oral Tablet [facility] ([facility]) Ibuprofen 800 MG Oral Tablet ibuprofen 800 mg tablet ibuprofen 8 00 mg tablet completed ibuprofen 800 MG Oral Tablet [facility] ([facility]) Acetaminophen 300 MG / Codeine Phosphate 30 MG Oral Tablet acetaminophen 300 mg- codeine 30 mg tablet acetaminophen 300 mg-codeine 30 mg tablet completed acetaminophen 300 MG / codeine p hosphate 30 MG Oral Tablet [facility] ([facility]) NITROFURANTOIN, MACROCRYSTALS 25 MG / Ni trofurantoin, Monohydrate 75 MG Oral Capsule nitrofurantoin monohydrate/macrocrystals 100 mg capsule TAKE ONE CAPSULE BY MOUTH TWICE A DAY FOR 7 DAYS nitrofurantoin monohydrate/macrocrystals 100 mg capsule TAKE ONE CAPSULE BY MOUTH TWICE A DAY FOR 7 DAYS completed nitrofurantoin, macrocrystal s 25 MG / nitrofurantoin, monohydrate 75 MG Oral Capsule [facility] ([facility]) Ibuprofen 800 MG Oral Tablet ibuprofen 800 mg tablet ibuprofen 8 00 mg tablet completed ibuprofen 800 MG Oral Tablet [facility] ([facility]) Ibuprofen 800 MG Oral Tablet ibuprofen 800 mg tablet ibuprofen 8 00 mg tablet completed ibuprofen 800 MG Oral Tablet [facility] ([facility]) Acetaminophen 300 MG / Codeine Phosphate 30 MG Oral Tablet acetaminophen 300 mg- codeine 30 mg tablet acetaminophen 300 mg-codeine 30 mg tablet completed acetaminophen 300 MG / codeine p hosphate 30 MG Oral Tablet [facility] ([facility]) Cefuroxime 500 MG Oral Tablet cefuroxime axetil 500 mg tablet cefuroxime axetil 500 mg tablet completed cefuroxi me 500 MG Oral Tablet [facility] ([facility]) Phenazopyridine hydrochloride 200 MG Ora l Tablet phenazopyridine 200 mg tablet TAKE ONE TABLET BY MOUTH THREE TIMES A DAY FOR 2 DAYS phenazopyridine 200 mg tablet TAKE ONE TABLET BY MOUTH THREE TIMES A DAY FOR 2 DAYS completed phenazopyridine hydrochloride 20 0 MG Oral Tablet [facility] ([facility]) Cefuroxime 500 MG Oral Tablet cefuroxime axetil 500 mg tablet cefuroxime axetil 500 mg tablet completed cefuroxi me 500 MG Oral Tablet [facility] ([facility]) Hydroxyzine Hydrochloride 25 MG Oral Tablet hydroxyzin e HCl 25 mg tablet hydroxyzine HCl 25 mg tablet completed hydroxyzine hydrochloride 25 MG Oral Tablet [facility] ([facility]) Cefuroxime 500 MG Oral Tablet cefuroxime axetil 500 mg tablet cefuroxime axetil 500 mg tablet completed cefuroxi me 500 MG Oral Tablet [facility] ([facility]) Prednisone 20 MG Oral Tablet prednisone 20 mg tablet TAKE TWO TABLETS BY MOUTH EVERY DAY prednisone 20 mg tablet TAKE TWO TABLETS BY MOUTH EVERY DAY completed prednisone 20 MG Oral Tablet [facility] ([facility]) Cefuroxime 500 MG Oral Tablet cefuroxime axetil 500 mg tablet cefuroxime axetil 500 mg tablet completed cefuroxi me 500 MG Oral Tablet [facility] ([facility]) Ergocalciferol 14097 UNT Oral Capsule Vi tamin D2 1,250 mcg (50,000 unit) capsule Vitamin D2 1,250 mcg (50,000 unit) capsule completed ergocalciferol 1.25 MG Oral Capsule [facility] ([facility]) Hydroxyzine Hydrochloride 25 MG Oral Tablet hydroxyzin e HCl 25 mg tablet hydroxyzine HCl 25 mg tablet completed hydroxyzine hydrochloride 25 MG Oral Tablet [facility] ([facility]) Ergocalciferol 31407 UNT Oral Capsule Vi tamin D2 1,250 mcg (50,000 unit) capsule Vitamin D2 1,250 mcg (50,000 unit) capsule completed ergocalciferol 1.25 MG Oral Capsule [facility]I ([facility]) Ibuprofen 800 MG Oral Tablet ibuprofen 800 mg tablet ibuprofen 8 00 mg tablet completed ibuprofen 800 MG Oral Tablet [facility] ([facility]) Cefuroxime 500 MG Oral Tablet cefuroxime axetil 500 mg tablet cefuroxime axetil 500 mg tablet completed cefuroxi me 500 MG Oral Tablet [facility] ([facility]) Ergocalciferol 63797 UNT Oral Capsule Vi tamin D2 1,250 mcg (50,000 unit) capsule Vitamin D2 1,250 mcg (50,000 unit) capsule completed ergocalciferol 1.25 MG Oral Capsule [facility] ([facility]) Doxycycline Monohydrate 100 MG Oral Caps ule doxycycline monohydrate 100 mg capsule doxycycline monohydrate 100 mg capsule completed doxycycline monohydrate 100 MG Oral Capsule [facility] ([facility]) Ibuprofen 800 MG Oral Tablet ibuprofen 800 mg tablet ibuprofen 8 00 mg tablet completed ibuprofen 800 MG Oral Tablet [facility] ([facility]) NITROFURANTOIN, MACROCRYSTALS 25 MG / Ni trofurantoin, Monohydrate 75 MG Oral Capsule nitrofurantoin monohydrate/macrocrystals 100 mg capsule TAKE ONE CAPSULE BY MOUTH TWICE A DAY FOR 7 DAYS nitrofurantoin monohydrate/macrocrystals 100 mg capsule TAKE ONE CAPSULE BY MOUTH TWICE A DAY FOR 7 DAYS completed nitrofurantoin, macrocrystal s 25 MG / nitrofurantoin, monohydrate 75 MG Oral Capsule [facility] ([facility]) Ketorolac Tromethamine 10 MG Oral Tablet ketorolac 10 mg tablet ketorolac 10 mg tablet completed ketorolac trome thamine 10 MG Oral Tablet [facility] ([facility]) Acetaminophen 300 MG / Codeine Phosphate 30 MG Oral Tablet acetaminophen 300 mg- codeine 30 mg tablet acetaminophen 300 mg-codeine 30 mg tablet completed acetaminophen 300 MG / codeine p hosphate 30 MG Oral Tablet [facility] ([facility]) Phenazopyridine hydrochloride 200 MG Ora l Tablet phenazopyridine 200 mg tablet TAKE ONE TABLET BY MOUTH THREE TIMES A DAY FOR 2 DAYS phenazopyridine 200 mg tablet TAKE ONE TABLET BY MOUTH THREE TIMES A DAY FOR 2 DAYS completed phenazopyridine hydrochloride 20 0 MG Oral Tablet [facility] ([facility]) Ergocalciferol 94929 UNT Oral Capsule Vi tamin D2 1,250 mcg (50,000 unit) capsule Vitamin D2 1,250 mcg (50,000 unit) capsule completed ergocalciferol 1.25 MG Oral Capsule [facility] ([facility]) Hydroxyzine Hydrochloride 25 MG Oral Tablet hydroxyzin e HCl 25 mg tablet hydroxyzine HCl 25 mg tablet completed hydroxyzine hydrochloride 25 MG Oral Tablet [facility] ([facility]) Ibuprofen 800 MG Oral Tablet ibuprofen 800 mg tablet ibuprofen 8 00 mg tablet completed ibuprofen 800 MG Oral Tablet [facility] ([facility]) Prednisone 20 MG Oral Tablet prednisone 20 mg tablet TAKE TWO TABLETS BY MOUTH EVERY DAY prednisone 20 mg tablet TAKE TWO TABLETS BY MOUTH EVERY DAY completed prednisone 20 MG Oral Tablet [facility] ([facility]) Hydroxyzine Hydrochloride 25 MG Oral Tablet hydroxyzin e HCl 25 mg tablet hydroxyzine HCl 25 mg tablet completed hydroxyzine hydrochloride 25 MG Oral Tablet [facility] ([facility]) NITROFURANTOIN, MACROCRYSTALS 25 MG / Ni trofurantoin, Monohydrate 75 MG Oral Capsule nitrofurantoin monohydrate/macrocrystals 100 mg capsule TAKE ONE CAPSULE BY MOUTH TWICE A DAY FOR 7 DAYS nitrofurantoin monohydrate/macrocrystals 100 mg capsule TAKE ONE CAPSULE BY MOUTH TWICE A DAY FOR 7 DAYS completed nitrofurantoin, macrocrystal s 25 MG / nitrofurantoin, monohydrate 75 MG Oral Capsule [facility] ([facility]) Ibuprofen 800 MG Oral Tablet ibuprofen 800 mg tablet ibuprofen 8 00 mg tablet completed ibuprofen 800 MG Oral Tablet [facility] ([facility]) Ibuprofen 800 MG Oral Tablet ibuprofen 800 mg tablet ibuprofen 8 00 mg tablet completed ibuprofen 800 MG Oral Tablet [facility] ([facility]) Hydroxyzine Hydrochloride 25 MG Oral Tablet hydroxyzin e HCl 25 mg tablet hydroxyzine HCl 25 mg tablet completed hydroxyzine hydrochloride 25 MG Oral Tablet [facility] ([facility]) Ketorolac Tromethamine 10 MG Oral Tablet ketorolac 10 mg tablet ketorolac 10 mg tablet completed ketorolac trome thamine 10 MG Oral Tablet [facility] ([facility]) Cefuroxime 500 MG Oral Tablet cefuroxime axetil 500 mg tablet cefuroxime axetil 500 mg tablet completed cefuroxi me 500 MG Oral Tablet [facility] ([facility]) Phenazopyridine hydrochloride 200 MG Ora l Tablet phenazopyridine 200 mg tablet TAKE ONE TABLET BY MOUTH THREE TIMES A DAY FOR 2 DAYS phenazopyridine 200 mg tablet TAKE ONE TABLET BY MOUTH THREE TIMES A DAY FOR 2 DAYS completed phenazopyridine hydrochloride 20 0 MG Oral Tablet [facility] ([facility]) Phenazopyridine hydrochloride 200 MG Ora l Tablet phenazopyridine 200 mg tablet TAKE ONE TABLET BY MOUTH THREE TIMES A DAY FOR 2 DAYS phenazopyridine 200 mg tablet TAKE ONE TABLET BY MOUTH THREE TIMES A DAY FOR 2 DAYS completed phenazopyridine hydrochloride 20 0 MG Oral Tablet [facility] ([facility]) Ketorolac Tromethamine 10 MG Oral Tablet ketorolac 10 mg tablet ketorolac 10 mg tablet completed ketorolac trome thamine 10 MG Oral Tablet [facility] ([facility]) NITROFURANTOIN, MACROCRYSTALS 25 MG / Ni trofurantoin, Monohydrate 75 MG Oral Capsule nitrofurantoin monohydrate/macrocrystals 100 mg capsule TAKE ONE CAPSULE BY MOUTH TWICE A DAY FOR 7 DAYS nitrofurantoin monohydrate/macrocrystals 100 mg capsule TAKE ONE CAPSULE BY MOUTH TWICE A DAY FOR 7 DAYS completed nitrofurantoin, macrocrystal s 25 MG / nitrofurantoin, monohydrate 75 MG Oral Capsule [facility] ([facility]) NITROFURANTOIN, MACROCRYSTALS 25 MG / Ni trofurantoin, Monohydrate 75 MG Oral Capsule nitrofurantoin monohydrate/macrocrystals 100 mg capsule TAKE ONE CAPSULE BY MOUTH TWICE A DAY FOR 7 DAYS nitrofurantoin monohydrate/macrocrystals 100 mg capsule TAKE ONE CAPSULE BY MOUTH TWICE A DAY FOR 7 DAYS completed nitrofurantoin, macrocrystal s 25 MG / nitrofurantoin, monohydrate 75 MG Oral Capsule [facility] ([facility]) NITROFURANTOIN, MACROCRYSTALS 25 MG / Ni trofurantoin, Monohydrate 75 MG Oral Capsule nitrofurantoin monohydrate/macrocrystals 100 mg capsule TAKE ONE CAPSULE BY MOUTH TWICE A DAY FOR 7 DAYS nitrofurantoin monohydrate/macrocrystals 100 mg capsule TAKE ONE CAPSULE BY MOUTH TWICE A DAY FOR 7 DAYS completed nitrofurantoin, macrocrystal s 25 MG / nitrofurantoin, monohydrate 75 MG Oral Capsule [facility] ([facility]) Prednisone 20 MG Oral Tablet prednisone 20 mg tablet TAKE TWO TABLETS BY MOUTH EVERY DAY prednisone 20 mg tablet TAKE TWO TABLETS BY MOUTH EVERY DAY completed prednisone 20 MG Oral Tablet [facility] ([facility]) Acetaminophen 300 MG / Codeine Phosphate 30 MG Oral Tablet acetaminophen 300 mg- codeine 30 mg tablet acetaminophen 300 mg-codeine 30 mg tablet completed acetaminophen 300 MG / codeine p hosphate 30 MG Oral Tablet [facility] ([facility]) Acetaminophen 300 MG / Codeine Phosphate 30 MG Oral Tablet acetaminophen 300 mg- codeine 30 mg tablet acetaminophen 300 mg-codeine 30 mg tablet completed acetaminophen 300 MG / codeine p hosphate 30 MG Oral Tablet [facility] ([facility]) Hydroxyzine Hydrochloride 25 MG Oral Tablet hydroxyzin e HCl 25 mg tablet hydroxyzine HCl 25 mg tablet completed hydroxyzine hydrochloride 25 MG Oral Tablet [facility] ([facility]) Doxycycline Monohydrate 100 MG Oral Caps ule doxycycline monohydrate 100 mg capsule doxycycline monohydrate 100 mg capsule completed doxycycline monohydrate 100 MG Oral Capsule [facility] ([facility]) Insurance Providers Payer name Policy type / Coverage type Policy ID Covered republican ID Covered republican's relationship to butler Policy Butler Plan Information MEDICAID [facility] [id number] SP BS [id number] SHERYL [id number] SP [id number] MEDICAID [facility] [id number] SP BS [id number] MEDICAID [facility] [id number] SP BS [id number] MEDICAID [facility] [id number] SP BS [id number] [employer] Essential Plan P [id number] S [id number] [employer] [id number] Self [id number] [facility] [employer]. [id number] Self [id number] [facility] Essential Plan P [id number] S [id number] [facility] MEDICAID [id number] Shahida [id number] [facility] MEDICAID [id number] [phone] [id number] [employer] [id number] Self [id number] SHERYL [id number] SP [id number] SHERYL [id number] SP [id number] SHERYL [id number] SP [id number] [employer] [id number] SP [id number] [employer] XIX [id number] 18 [id number] [employer] COMM[employer]AN MCDO [id number] SP [id number] [employer] COMM[employer]AN MCDO [id number] SP [id number] [facility]) O [id number] S [id number] [facility]) O [id number] S [id number] SELF PAY ONLY [id number] SP [id number] PRIVATE PAY KASSANDRA PRAKASH Sudha 20 F [place] Haley MEDICAID M [id number] S [id number] MEDICAID [id number] SP [id number] SHERYL [id number] SP [id number] Medicaid Dental P [id number] S [id number] Problems, Conditions, and Diagnoses Code Display Name Description Problem Type Effective Dates Data Source(s) R28302 Personal history of malignant neoplasm o f thyroid Personal history of malignant neoplasm of thyroid Diagnosis 06/20/2021 05:29:00 AM EDT [facility] [id number] Unspecified asthma, uncomplicated Unspecified as thma, uncomplicated Diagnosis 06/20/2021 05:29:00 AM EDT [facility] M940 Chondrocostal junction syndrome [Tietze] Chondrocostal junction syndrome [Tietze] Diagnosis 06/20/2021 05:29:00 AM EDT [facility] R0789 Other chest pain Other chest pain Diagnosis 06/20/2021 05 :29:00 AM EDT [facility] E04.1 Nontoxic single thyroid nodule Nontoxic single thyroid nodule Diagnosis 03/01/2021 01:58:25 PM EDT [facility] U07.1 COVID-19 COVID-19 Diagnosis 01/19/2021 09:13:29 AM ED T [facility] [id number] Pain in left lower leg Pain in left lower leg Diagnosi s 10/24/2020 09:39:00 AM [facility] [id number] Pain in right lower leg Pain in right lower leg Diagno sis 10/24/2020 09:39:00 AM [facility] M7989 Other specified soft tissue disorders Ot her specified soft tissue disorders Diagnosis 10/24/2020 09:39:00 AM [facility] E04.1 Thyroid nodule Thyroid nodule [id number] 12/19/2020 12:00: 00 AM EDT [facility] N92.0 Menorrhagia Menorrhagia Problem 07/11/2020 12:00:00 AM EDT eCW1 ([facility]) Surgeries/Procedures Procedure Description Date Indications Data Source(s) OFFICE OUTPATIENT VISIT 25 MINUTES 06/19/2021 12:00:00 AM EDT [facility] ([facility]) OFFICE OUTPATIENT VISIT 25 MINUTES 04/18/2021 12:00:00 AM EDT [facility] ([facility]) URINE TEST VISUAL COLOR CMPRSN METHS <td>POC T QUICK JACY URINE</td><td>Routine</td><td>01/24/2021 12:26 PM EDT</td><td></td><td> </td> 01/24/2021 12:26:00 PM EDT [facility] POCT I-STAT BETA HCG <td>POCT I-STAT BETA HCG</td ><td>Routine</td><td>01/24/2021 11:42 AM EDT</td><td></td><td></td> 01/24/2021 11:42:00 AM EDT [facility] Thyroidectomy 01/24/2021 12:00:00 AM EDT [facility] ([facility]) Thyroidectomy 01/24/2021 12:00:00 AM EDT [facility] ([facility]) Thyroidectomy 01/24/2021 12:00:00 AM EDT [facility] ([facility]) Thyroidectomy 01/24/2021 12:00:00 AM EDT [facility] ([facility]) Thyroidectomy 01/24/2021 12:00[facility] 01/24[facility]21 12:00[facility]00 [facility] 01/24/2021 12:00:00 [facility]PAT[facility] V[facility]IT 25 MINUTES 10/06/2020 12:00:00 AM EST [facility] ([facility]) Fine Needle Aspiration Biopsy Inlcd Ultrasound Guidance 09/12/2020 12:00:00 AM EST [facility] ([facility]) Results ID Date Data Source [id number] 07/19/2021 12:45:00 PM EDT [facility] Name Value Range Interpretation Code Description Data Loreta rce(s) Supporting Document(s) SARS-CoV-2 RNA Resp Ql TRAV+probe NOT DETECTED [facility] This lab was ordered by LILO schmidt and reported by LILO Weems. ID Date Data Source [id number] 07/06/2021 09:01:00 AM EDT [facility] ([facility]) Name Value Range Interpretation Code Description Data Loreta rce(s) Supporting Document(s) Thyroid Stimulating Hormone 2.970 uIU/ML 0.358-3.740 [facility] ([facility]) Free T4 0.87 ng/dL 0.76-1.46 [facility] ([facility]) ID Date Data Source [id number] 06/20/2021 05:29:00 AM EDT [facility] 1 OrderSheet [facility] Emergency Department [address] [place] [address] Phone #: [phone]- [phone] 06/20/2021 05:06 Patient: PRAKASH CANNON Sex: F : 1985 Age: 35yWEIGHT:58.9 kg (S) HEIGHT:65 inches (S) BMI:21.6ALLERGIES: Sulfa AntibioticsCHIEF COMPLAINT: chest pain, chest painDIAGNOSIS: Atypical chest pain, Costal chondritis, Chest wall painLAB ORDERSOrder Description Priority Entered Acknowledged InitialedCBC w Diff STAT 05:23 06/20/2021 05:27 Murray Dalal Victoria Stephanie R.N. ;CMP STAT 05:23 06/20/2021 05:27 Murray Dalal Victoria Stephanie R.N. ;Lipase STAT 05:23 06/20/2021 05:27 Murray Dalal Victoria Stephanie R.N. ;PT/PTT STAT 05:23 06/20/2021 05:27 Murray Dalal Victoria Stephanie R.N. ;Troponin-T STAT 05:23 06/20/2021 05:27 Murray Dalal Victoria Stephanie R.N. ;DIAGNOSTIC STUDY ORDERSOrder Description Priority Entered Acknowledged InitialedChest Portable 1 STAT 05:23 06/20/2021 05:27 [place],View Gisele Goldstein R.N.(Oxygen?(No)) ; Reason for Study: Chest PainMEDICATION/IV/DRIP/FLUID ORDERSOrder Description Priority Entered Acknowledged InitialedToradol IVP 30 mg 05:23 06/20/2021 Ack'd: 05:31 06:08 Aleja(NOW) Gisele Goldstein Laura R.N. Laura R.N. ;GENERAL ORDERSOrder Description Priority Entered Acknowledged Initialed 2 OrderSheet [facility] Emergency Department [address] [place] [address] Phone #: ext- [phone] 06/20/2021 05:06 [id number] Sex[facility] F : 1985 Age: 35yBlood Pressure 05:23 06/20/2021 05:25 Aleja,Monitor Gisele Goldstein R.N. 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 ;EKG 05:23 06/20/2021 05:25 Murray Masterson Victoria Laura R.N. ;NPO 05:23 06/20/2021 05:25 Murray Masterson Victoria Laura RPaulN. ;Obtain Old EKG 05:23 06/20/2021 05:25 Murray Masterson Victoria Laura R.N. ;Obtain Old Records 05:23 06/20/2021 05:25 Murray Masterson Victoria Laura R.N. ;Oxygen titrate to 05:23 06/20/2021 05:25 [place],92% Gisele Goldstein R.N. ;Pulse oximeter 05:23 06/20/2021 05:25 [place],(Continuous) Gisele Goldstein R.N. ;Saline Lock 05:23 06/20/2021 05:25 Murray Masterson Victoria Laura R.N. ;Vitals 05:23 06/20/2021 05:25 Murray Masterson Victoria Laura R.N. ;[Electronically signed by Ruba Quevedo RN (09:51 06/20/2021)][Elec tronically signed by Cam Vasquez M.D. (15:53 06/20/2021)][Electronically signed by Gisele Goldstein (08:49 06/21/2021)][Electronically locked by Ruba Quevedo RN (09:51 06/20/2021)] Name Value Range Interpretation Code Description Data Loreta rce(s) Supporting Document(s) ID Date Data Source [id number] 06/20/2021 05:29:00 AM EDT [facility] 1 Medication Reconciliation Report [facility] Emergency Department [address] [place] [address] Phone #: ext- [phone] 06/20/2021 05:06 Patient: PRAKASH CANNON Sex: F : 1985 Age: 35yWeight: 58.9 kgHeight/Length: 65 in.BMI: 21.6ALLERGIES: Sulfa AntibioticsThe patient's Home Medications are listed below:NONE.The source(s) of the original Home Medication information:Not obtained.The following Medications were given to the patient in the Emergency Department:Toradol [IVP] IVP 30 mg, administered: 06:08 06/20/2021The following Medications were prescribed to the patient:None. Name Value Range Interpretation Code Description Data Loreta rce(s) Supporting Document(s) ID Date Data Source [id number] 06/20/2021 05:29:00 AM EDT [facility] 1 Medication Administration Record [facility] Emergency Department [address] [place] [address] Phone #: ext- [phone] 06/20/2021 05:06 Patient: PRAKASH CANNON Sex: F : 1985 Age: 35yWeight: 58.9 kgHeight/Length: 65 inBMI: 21.6ALLERGIES: Sulfa Antibiotics Date/Time Medication Administered Medication OrderedGiven TORADOL [IVP] (KETOROLAC Toradol IVP 30 mg (NOW)06:08 06/20/2021 TROMETHAMINE)Brandie Masterson R.N. Dose: 30 mg IVP Site: #1 right forearm Name Value Range Interpretation Code Description Data Loreta rce(s) Supporting Document(s) ID Date Data Source [id number] 06/20/2021 05:29:00 AM EDT [facility] 1 General Instructions [facility] Emergency Department [address] [place] [address] Phone #: ext- [phone] 06/20/2021 05:06 Patient: PRAKASH CANNON Sex: F : 1985 Age: 35yAtypical chest pain.(Electronically signed by Gisele Goldstein 06/21/2021 08:49)Chest wall pain.CostochondritisINSTRUCTIONSAvoid stimulants (such as cigarettes, coffee, cold medicines, sinus medicines, street drugs). Follow a lowsalt diet and low cholesterol diet. Do not smoke. No alcohol.Warnings: Further evaluation is necessary in order to conduct further tests. It is very important to follow upwith a healthcare provider.GENERAL WARNINGS: Return or contact your physician immediately if your condition worsens orchanges unexpectedly, if not improving as expected, or if other problems arise. SPECIFICALLY, return ifyou develop chest, neck, jaw, shoulder, arm, or back pain, difficulty breathing, a fluttering sensation in yourchest, lightheadedness, fainting, excessive fatigue, or sudden sweating.Your Current Medications: .No home medication.Follow- up:Return to the emergency department as needed. Follow up with your healthcare provider in five dayseven if well. Call for an appointment. Reason for referral: evaluation, treatment and stress test as needed.Summary of care provided to patient via paper. 2 General Instructions [facility] Emergency Department [address] [place] [address] Phone #: ext- [phone] 06/20/2021 05:06 Patient: PRAKASH CANNON Sex: F : 1985 Age: 35yUnderstanding of the discharge instructions verbalized by patient. Expected course of illness, dischargeinstructions, activity level, diet, follow-up appointment and risks and benefits of treatment reviewed withpatient and understanding verbalized. Agrees to plan of care. ADDITIONAL INFORMATIONChest Wall Pain: CostochondritisThe chest pain that you have had today is caused by costochondritis. This condition is caused by aninflammation of the cartilage joining your ribs to your breastbone. It's not caused by heart or lungproblems. Your healthcare team has made sure that the chest pain you feel is not from a lifethreatening cause of chest pain such as heart attack, collapsed lung, blood clot in the lung, tear in theaorta, or esophageal rupture. The inflammation may have been brought on by a blow to the chest,lifting heavy objects, intense exercise, or an illness that made you cough and sneeze a lot. It oftenoccurs during times of emotional stress. It can be painful, but it's not dangerous. It usually goes awayin 1 to 2 weeks. But it may happen again. Rarely, a more serious condition may cause symptomssimilar to costochondritis. That's why it's important to watch for the warning signs listed below.Home careFollow these guidelines when caring for yourself at home: If you feel that emotional stress is a cause of your condition, try to figure out the sources of that stress. It may not be obvious. Learn ways to deal with the stress in your life. This can 3 General Instructions [facility] Emergency Department [address] [place] [address] Phone #: ext- [phone] 06/20/2021 05:06 Patient: PRAKASH CANNON Sex: F : 1985 Age: 35y include regular exercise, muscle relaxation, meditation, or simply taking time out for yourself. You may use acetaminophen, ibuprofen, or naproxen to control pain, unless another pain medicine was prescribed. If you have liver or kidney disease or ever had a stomach ulcer, talk with your healthcare provider before using these medicines. You can also help ease pain by using a hot, wet compress or heating pad. Use this with or without a medicated skin cream that helps relieves pain. Do stretching exercise as advised by your provider. Typically rest is beneficial for the first few days. Avoid strenuous activity that worsens the pain. Take any prescribed medicines as directed.Follow-up careFollow up with your healthcare provider, or as advised.When to seek medical adviceCall your healthcare provider right away if any of these occur: A change in the type of pain. Call if it feels different, becomes more serious, lasts longer, or spreads into your shoulder, arm, neck, jaw, or back. Shortness of breath or pain gets worse when you breathe Weakness, dizziness, or fainting Cough with dark- colored sputum (phlegm) or blood Abdominal pain Dark red or black stools Fever of 100.4F (38C) or higher, or as directed by your healthcare provider [employer]. [address] [place] [address]. All rights reserved. This information is not intended as asubstitute for professional medical care. Always follow your healthcare professional's instructions. You have been given the following additional information: Chest Wall Pain, Costochondritis 4 General Instructions [facility] Emergency Department [address] [place] [address] Phone #: ext- [phone] 06/20/2021 05: 06 [id number] Sex: F : 1985 Age: 35y(Electronically signed by Cam Vasquez M.D. 06/20/2021 15:53) Name Value Range Interpretation Code Description Data Loreta rce(s) Supporting Document(s) ID Date Data Source [id number] 06/20/2021 05:29:00 AM EDT [facility] 1 Clinical Report - Nurses [facility] Emergency Department [address] [place] [address] Phone #: ext- [phone] 06/20/2021 05:06 [facility]AK[facility] CAN[id number] Sex: F : 1985 Age: 35yTRIAGEArrived by private vehicle. Historian: patient. Accompanied by family.Acuity: LEVEL 3.Chief Complaint: CHEST PAIN.Alert. No acute distress.Onset. (2 days). ( Patient arrives c/o chest pain. Pt reports pain started 2 days ago and has been aconstant sharp. Pt denies any radiates. Pt states now she has nausea. Pt denies sob.).Treatment TIE PRESSER:None. --05:14 06/20/21 Brandie Masterson R.N.05:10 06/20/21. BP: 124/81. MAP: 95. HR: 82. RR: 17. O2 saturation: 100% on room air. Temp: 97.1 F(oral). Pain level now: 05/25. --05:14 06/20/21 Brandie Masterson R.N.Weight: 58.9 kg stated. Height/Length: 65 inches Per Patient. BMI: 21.6. --05:10 06/20/21 Brandie Masterson R.N.MedicationsNone. --05:13 06/20/21 Brandie Masterson R.N.AllergiesSulfa Antibiotics. --05:13 06/20/21 Brandie Masterson R.N.PROBLEMS:Thyroid cancer. --05:14 06/20/21 Brandie Masterson R.N.Asthma. --07:22 06/20/21 Cam Vasquez M.D.The following entry was modified by Cam Vasquez M.D., 07:22 06/20/21Asthma. --05:13 06/20/21 Brandie Masterson R.N.The following entry was modified by Cam Vasquez M.D., 07:22 06/20/21Asthma. --07:22 06/20/21 Cam Vasquez M.D..ADDITIONAL SURGERIES:Right side thyroidectomy. --05:14 06/20/21 Brandie Masterson R.N.HistoryPAST MEDICAL HX: Immunizations: up-to-date. Last normal menstrual period now.SOCIAL HX: Never smoker. No alcohol use or drug use. The patient has not traveled outside the [place] 2 Clinical Report - Nurses [facility] Emergency Department [address] [place] [address] Phone #: ext- [phone] 06/20/2021 05:06 -- Patient: PRAKASH CANNON Sex: F : 1985 Age: 35y Infectious disease exposure: No infectious disease exposure. The patient was not exposed to Coronavirus. (Pt is not vaccinated for covid). Patient is not a known carrier of tuberculosis, hepatitis, HIV, MRSA or VRE. Patient is not a known carrier of CRE. SELF HARM ASSESSMENT: Self harm assessment was performed. The patient answered "no" to the question(s) "Have you recently felt down, depressed, or hopeless?", "Do you have thoughts of harming or killing yourself?", "Do you have a plan for harming or killing yourself?", "Have you recently had thoughts about harming or killing others?", "Do you have any dangerous items in your possession?", "Have you noticed less interest or pleasure in doing things?", "Are you here because you tried to hurt yourself?" and "Have you ever tried to hurt yourself before today?". ABUSE ASSESSMENT: Abuse assessment. The patient had positive responses to the question(s) "Do you feel safe in your home?", "Are you afraid to go home?", "Has anyone hurt you or threatened to hurt you?", "Are you afraid of your partner?" and "Have children witnessed violence in the home?". Abuse denied. No suspicion of abuse. NUTRITIONAL RISK ASSESSMENT: The nutritional risk assessment revealed no deficiencies. FUNCTIONAL ASSESSMENT: Functional assessment: no impairments noted. LEARNING NEEDS ASSESSMENT: The learning needs assessment revealed no barriers. FALL RISK ASSESSMENT: Fall risk assessment completed. No risk factors identified. SKIN INTEGRITY ASSESSMENT: Skin integrity risk assessment completed. No skin integrity risk identified. --0506/20/21 Brandie Masterson R.N. FAMILY HX: Negative - denies family medical history. No significant family medical history (denies family hx of cad). --06/20/21 Gisele Goldstein. Interventions Identification band on patient. To treatment room. --05:06/20/21 Brandie Masterson R.N.PHYSICAL ASSESSMENTAmbulatory to room. Patient gowned.GENERAL / NEURO / PSYCH: Alert. Oriented X 4. Appears in no acute distress. Appears anxious.HEENT: Mucous membranes are pink.RESPIRATORY: Respirations not labored. Chest nontender. Breath sounds within normal limits.CVS: Normal sinus rhythm noted. Heart sounds within normal limits. Pulses within normal limits. (Patient reports midsternal sharp constant reproducible chest pain x2 days). Capillary refill less than 2seconds.GI / : Abdomen soft and nontender.EXTREMITIES: No lower extremity edema.SKIN: Skin is warm and dry. Normal skin turgor. Skin is non-tender. --06/20/21 Brandie Masterson, 3 Clinical Report - Nurses [facility] Emergency Department [address] [place] [address] Phone #: ext- [phone] 06/20/2021 05:06 Patient: PRAKASH CANNON Sex: F : 1985 Age: 35y R.N.NURSING PROGRESS NOTESMonitoring of patient in place. EKG time: (late entry - 05:14 06/20/2021). EKG was performed by a nurseand shown to the ED physician. Patient gowned. Head of bed elevated. Reassurance given. Twopatient identifiers checked. Call light placed in reach. Side rails up x 2. Bed placed in lowest position.Brakes of bed on. --05:21 06/20/21 Brandie Masterson R.N. 06:06 06/20/2021 Site #1 started via IV in the right forearm with an 20g angiocath, with aseptic technique and good blood return; one attempt. Blood drawn: green, purple and tiger tube(s). Saline lock flushed with 10 mL saline. --06:06 06/20/21 Geneva Dalal R.N. 06:08 06/20/2021 Toradol (Ketorolac Tromethamine) IVP 30 mg given via site #1. Allergies verified and confirmed 5 rights. IV patency established. IV site checked: no pain, redness, or swelling. IV flushed thoroughly pre- and post-medication administration. IVP given by RN. Information reviewed with patient. Verbalizes understanding. --06:08 06/20/21 Brandie Masterson R.N. 06:13 06/20/21. BP: 114/73. MAP: 86. HR: 75. RR: 16. O2 saturation: 100%. --06:13 06/20/21 Geneva Dalal R.N. The patient is calm and resting quietly. --06:15 06/20/21 Brandie Masterson R.N. 06:14 06/20/21. BP: 114/73. MAP: 86. HR: 75. RR: 16. O2 saturation: 100% on room air. --06:15 06/20/21 Brandie Masterson R.N. 09:13 06/20/21. HR: 68. RR: 13. O2 saturation: 100%. --09:13 06/20/21 [facility].DISPOSITION / DISCHARGE 09:40 06/20/21. BP: 103/63. HR: 65. RR: 16. O2 saturation: 100%. Temp: 98.3 F. Pain level now 8/10. --09:41 06/20/21 [facility] 09:47 10/06/21. Condition at departure: stable. No learning barriers present. Discharge instructions provided and reviewed with the patient. Patient verbalized understanding. Written instructions provided in Tu[place]uan. The patient was discharged home. She left ambulatory and via private vehicle. Patient driving. --09:49 06/20/21 Ruba Quevedo RN.Locked/Released at 06/20/2021 09:51 by Ruba Quevedo RN Name Value Range Interpretation Code Description Data Loreta rce(s) Supporting Document(s) ID Date Data Source [id number] 06/20/2021 05:29:00 AM EDT [facility] 1 Clinical Report - Physicians/Mid Levels [facility] Emergency Department [address] [place] [address] Phone #: ext- [phone] 06/20/2021 05:06 [facility] CAN[id number] Sex[facility] F : 1985 Age: 35y Time Seen: 05:11 06/20/2021; initial patient contact, initial documentation. Arrived- By private vehicle. Historian- patient.HISTORY OF PRESENT ILLNESS Chief Complaint: CHEST PAIN. This started since friday and is still present (persistent). It was gradual in onset. Onset during rest. It is described as sharp and it is described as located in the central chest area. No radiation. At its maximum, severity described as moderate. When seen in the E.D., severity described as moderate. Modifying factors. Not worsened by anything. Not relieved by anything. No nausea, vomiting, difficulty breathing or diaphoresis.REVIEW OF SYSTEMSLast normal menstrual period now. No fever, chills, cough, pedal edema or calf pain. No faintingepisodes, headache, sore throat, blurred vision or abdominal pain. No black stools, difficulty withurination, skin rash, enlarged lymph nodes or joint pain. No bloody stools. All other systems reviewedand are negative.PAST HISTORYSee nurses notes. Problems: Thyroid cancer. Asthma. Additional Surgeries: Right side thyroidectomy. Medications: None. Allergies: Sulfa Antibiotics.SOCIAL HISTORYNever smoker. No alcohol use or drug use.FAMILY HISTORYNegative - denies family medical history. No significant family medical history (denies family hx of cad).ADDITIONAL NOTESThe nursing notes have been reviewed.PHYSICAL EXAM 2 Clinical Report - Physicians/Mid Levels [facility] Emergency Department [address] [place] [address] Phone #: ext- [phone] 06/20/2021 05:06 ------ Patient: PRAKASH CANNON Sex: F : 1985 Age: 35y Vital Signs: 06/20/2021 05:10 BP: 124/81. MAP: 95. HR: 82. RR: 17. O2 saturation: 100% on room air. Temp: 97.1 F. Pain level now: 10. Have been reviewed. Oxygen saturation normal. Appearance: Alert. Oriented X3. In distress. Eyes: Pupils equal, round and reactive to light. Eyes normal inspection. Neck: Normal inspection. Neck supple. CVS: Normal heart rate and rhythm. Heart sounds normal. Pulses normal. Respiratory: No respiratory distress. Chest pain reproducible with palpation of the costal cartilage. Chest pain is not reproduced with movement or deep breathing. Breath sounds normal. Chest nontender. Abdomen: Soft and nontender. Bowel sounds normal. No organomegaly. No mass. Femoral pulses equal. Back: Normal external inspection. No CVA tenderness. Skin: Skin warm and dry. Normal skin color. No rash. Normal skin turgor. Extremities: Extremities exhibit normal ROM. No lower extremity edema. Neuro: Oriented X 3. No motor deficit. No sensory deficit.LABS, X-RAYS, AND EKGEKG: EKG time: 05:13 06/20/2021. No acute process. No acute ischemia. Normal EKG. Normalsinus rhythm. Rate: 76. Normal P waves. Normal ALFONSO. Normal QRS complex. Normal axis. NormalST and T waves. Prior EKG unavailable. The study has been interpreted contemporaneously by me.The study has been independently viewed by me. The EKG appears to be a good tracing. Interpretationtime: 05:27 06/20/2021.Laboratory Tests: CBC w Diff: (JODIE: 06/20/2021 06:00) ( MsgRcvd 06/20/2021 06:46) Final results Test Result Flag Units (Reference) CBC W/AUTOMATED DIFF COMPLETE BLOOD COUNT WBC 8.2 10/uL (4.2 - 11.0) RBC 4.84 10/uL (4.20 - 5.40) HEMOGLOBIN 14.1 g/dL (12.0 - 16.0) HEMATOCRIT 40.7 % (37.0 - 47.0) MCV 84.1 fL (81.0 - 101) MCH 29.1 pg (27.0 - 34.0) MCHC 34.6 g/dL (31.0 - 36.0) RDW 12.7 % (11.5 - 14.5) PLATELETS 266 10/uL (150 - 450) MPV 8.6 fL (7.4 - 10.4) NEUT 63.1 % (37.0 - 80.0) LYMPH 26.7 % (25.0 - 40.0) MONO 7.1 % (3.0 - 8.0) EOS 2.0 % (0.0 - 7.0) BASO 0.9 % (0.0 - 2.5) %IG 0.2 H % (0.0 - 0.0) %NRBC 0.0 % (0.0 - 0.0) #NEUT 5.14 10/uL (2.00 - 6.90) #LYMPH 2.18 10/uL (0.60 - 3.40) #MONO 0.58 10/uL (0.00 - 0.90) #EOS 0.16 10/uL (0.00 - 0.70) #BASO 0.07 10/uL (0.00 - 0.20) #IG 0.02 10/uL (0.00 - 0.10) #NRBC 0.00 10/uL (0.00 - 0.00) MANUAL DIFF NOT INDICATED 3 Clinical Report - Physicians/Mid Levels [facility] Emergency Department [address] [place] [address] Phone #: ext- [phone] 06/20/2021 05:06 ------- Patient: PRAKASH CANNON Sex: F : 1985 Age: 35y RBC MORPH NOT INDICATED PT/PTT: (JODIE: 06/20/2021 05:30) ( MsgRcvd 06/20/2021 06:10) Canceled Chest Portable 1 View: (JODIE: 06/20/2021 05:30) ( MsgRcvd 06/20/2021 06:11) In Progress CHEST PORTABLE Reason(s): Chest Pain TRANSPORTATION: P IV? O2? Oxygen?(No) Room: ED.PROGRESS AND PROCEDURESCourse of Care: 05:27 06/20/21. 35 y/o female with history of thyroid cancer as well as asthma presents tot ER with 3 days history of midsternal chest pains denies exacerbation or relieving factors. Pain hasbeen constant and sharp She went to [facility] yesterday and was told that the wait is long and shewont be seen until 7 am so she came to [place]. Exam showed tenderness on the left sternal border.her EKG was normal without any ischemic changes. given Toradol. She has no risk factors for CADincluding HTN, CAD, DM, HTN. she also not have a family history CAD. she does not smoke as well 06:57 06/20/21. awaiting for troponin. will sign out to Dr Vasquez. ED care transferred. Case discussed with dr Vasquez. Brief hx: 35 y/o female with sharp midsternal chest pain x 2 days EKG normal . Pending items: lab. Tentative impression: constochondritis. Expected disposition: discharge from ED. Patient/family counseled. Disposition: Condition: good and stable.CLINICAL IMPRESSION Atypical chest pain.(Electronically signed by Gisele Goldstein 06/21/2021 08:49) Time Seen: 05:11 06/20/2021; initial patient contact, initial documentation. Arrived- By private vehicle. Historian- patient. Disposition decision: 09:26 06/20/2021.HISTORY OF PRESENT ILLNESS 4 Clinical Report - Physicians/Mid Levels [facility] Emergency Department [address] [place] [address] Phone #: ext- [phone] 06/20/2021 05:06 Patient: PRAKASH CANNON Sex: F : 1985 Age: 35y Chief Complaint: CHEST PAIN. It is described as sharp and it is described as located in the central chest area. No radiation. This started since friday and is still present (persistent). It was gradual in onset. Onset during rest. At its maximum, severity described as moderate. When seen in the E.D., severity described as moderate. Modifying factors. Not worsened by anything. Not relieved by anything. No nausea, vomiting, difficulty breathing or diaphoresis. Recent medical care: Not recently seen/assessed.REVIEW OF SYSTEMSLast normal menstrual period now. No fever, chills, cough, pedal edema or calf pain. No faintingepisodes, headache, sore throat, blurred vision or abdominal pain. No black stools, difficulty withurination, skin rash, enlarged lymph nodes or joint pain. No bloody stools. All other systems reviewedand are negative.PAST HISTORYSee nurses notes. Problems: Chronic Venous Insufficiency. Asthma. Thyroid cancer. Additional Surgeries: Right side thyroidectomy. Medications: None. Allergies: Sulfa Antibiotics.SOCIAL HISTORYNever smoker. No alcohol use or drug use.FAMILY HISTORYNegative - denies family medical history. No significant family medical history (denies family hx of cad).ADDITIONAL NOTESThe nursing notes have been reviewed.PHYSICAL EXAMVital Signs: 06/20/2021 05:10 BP: 124/81. MAP: 95. HR: 82. RR: 17. O2 saturation: 100% on room air.Temp: 97.1 F. Pain level now: 05/25. Have been reviewed. Oxygen saturation normal.Appearance: Alert. Oriented X3. In distress.Eyes: Pupils equal, round and reactive to light. Eyes normal inspection. 5 Clinical Report - Physicians/Mid Levels [facility] Emergency Department [address] [place] [address] Phone #: ext- [phone] 06/20/2021 05:06 Patient: PRAKASH CANNON Sex: F : 1985 Age: 35y Neck: Normal inspection. Neck supple. CVS: Normal heart rate and rhythm. Heart sounds normal. Pulses normal. Respiratory: No respiratory distress. Chest pain reproducible with palpation of the costal cartilage. Chest pain is not reproduced with movement or deep breathing. Breath sounds normal. Chest nontender. Abdomen: Soft and nontender. Bowel sounds normal. No organomegaly. No mass. Femoral pulses equal. Back: Normal external inspection. No CVA tenderness. Skin: Skin warm and dry. Normal skin color. No rash. Normal skin turgor. Extremities: Extremities exhibit normal ROM. No lower extremity edema. Neuro: Oriented X 3. No motor deficit. No sensory deficit.LABS, X-RAYS, AND EKGEKG: EKG time: 05:13 06/20/2021. No acute process. No acute ischemia. Normal EKG. Normalsinus rhythm. Rate: 76. Normal P waves. Normal ALFONSO. Normal QRS complex. Normal axis. NormalST and T waves. Prior EKG unavailable. The study has been interpreted contemporaneously by me.The study has been independently viewed by me. The EKG appears to be a good tracing. Interpretationtime: 05:27 06/20/2021.Chest X-ray: No acute disease. Views: AP (portable). Technique: good. The X-rays were interpretedcontemporaneously by me. Interpretation time: 07:25 06/20/2021.Laboratory Tests: Laboratory tests have been ordered, with results reviewed and considered in themedical decision making process. CBC w Diff: (JODIE: 06/20/2021 06:00) ( MsgRcvd 06/20/2021 06:46) Final results Test Result Flag Units (Reference) CBC W/AUTOMATED DIFF COMPLETE BLOOD COUNT WBC 8.2 10/uL (4.2 - 11.0) RBC 4.84 10/uL (4.20 - 5.40) HEMOGLOBIN 14.1 g/dL (12.0 - 16.0) HEMATOCRIT 40.7 % (37.0 - 47.0) MCV 84.1 fL (81.0 - 101) MCH 29.1 pg (27.0 - 34.0) MCHC 34.6 g/dL (31.0 - 36.0) RDW 12.7 % (11.5 - 14.5) PLATELETS 266 10/uL (150 - 450) MPV 8.6 fL (7.4 - 10.4) NEUT 63.1 % (37.0 - 80.0) LYMPH 26.7 % (25.0 - 40.0) MONO 7.1 % (3.0 - 8.0) EOS 2.0 % (0.0 - 7.0) BASO 0.9 % (0.0 - 2.5) %IG 0.2 H % (0.0 - 0.0) %NRBC 0.0 % (0.0 - 0.0) #NEUT 5.14 10/uL (2.00 - 6.90) #LYMPH 2.18 10/uL (0.60 - 3.40) #MONO 0.58 10/uL (0.00 - 0.90) #EOS 0.16 10/uL (0.00 - 0.70) #BASO 0.07 10/uL (0.00 - 0.20) #IG 0.02 10/uL (0.00 - 0.10) #NRBC 0.00 10/uL (0.00 - 0.00) MANUAL DIFF NOT INDICATED RBC MORPH NOT INDICATED 6 Clinical Report - Physicians/Mid Levels [facility] Emergency Department [address] [place] [address] Phone #: ext- [phone] 06/20/2021 05:06 Patient: PRAKASH CANNON [facility]#: [id number] Sex: F : 1985 Age: 35y CMP: (JODIE: 06/20/2021 06:00) ( MsgRcvd 06/20/2021 07:56) Final results Test Result Flag Units (Reference) COMPREHENSIVE METABOLIC PANEL COMPREHENSIVE METABOLIC PANEL SODIUM 141 mEq/L (134 - 153) POTASSIUM 3.9 mEq/L (3.6 - 5.0) CHLORIDE 105 mEq/L (98 - 107) CO2 24 MEQ/L (22 - 30) GLUCOSE 94 MG/DL (70 - 99) BUN 7 MG/DL (7 - 21) CREATININE 0.7 MG/DL (0.7 - 1.5) BUN/CREAT 10 (8 - 27) TOTAL PROTEIN 7.4 G/DL (6.3 - 8.2) ALBUMIN 4.6 G/DL (3.9 - 5.0) GLOBULIN 2.8 GM/DL (2.4 - 3.2) A/G RATIO 1.6 (0.8 - 2.0) CALCIUM 10.0 MG/DL (8.4 - 10.2) TOTAL BILI 0.8 MG/DL (0.2 - 1.3) ALKALINE PHOS 62 U/L (38 - 126) SGOT/AST 15 U/L (5 - 40) SGPT/ALT 6 L U/L (7 - 56) ANION GAP 12.0 mmol/L (8.0 - 16.0) AGE 35 yrs NON-AA GFR >60 mL/min AFR AMER GFR >60 mL/min Male GFR Interprentation 20-49 yrs >60 mL/min Normal 50-59 yrs >56 mL/min Normal 60-69 yrs >49 mL/min Normal 70-79yrs >42 mL/min Normal 80 and above >35 mL/min Normal Female GFR Interpretation 20-39 yrs >60 mL/min Normal 40-49 yrs >58 mL/min Normal 50-59 yrs >51 mL/min Normal 60-69 yrs >45 mL/min Normal 70-79 yrs >39 mL/min Normal 80 and above >32 mL/min Normal Lipase: (JODIE: 06/20/2021 06:00) ( MsgRcvd 06/20/2021 07:54) Final results Test Result Flag Units (Reference) LIPASE 21 U/L (13 - 60) PT/PTT: (JODIE: 06/20/2021 05:30) ( MsgRcvd 06/20/2021 06:10) Canceled Troponin-T: (JODIE: 06/20/2021 06:00) ( MsgRcvd 06/20/2021 07:23) Final results Test Result Flag Units (Reference) TROPONIN T <0.01 NG/ML (0.00 - 0.10) TROPONIN T0.1 ng/ml Recommended as the clinical threshold value forTroponin T. Chest Portable 1 View: (JODIE: 06/20/2021 05:30) ( MsgRcvd 06/20/2021 06:11) In Progress CHEST PORTABLE Reason(s): Chest Pain TRANSPORTATION: P IV? O2? Oxygen?(No) Room: ED. 7 Clinical Report - Physicians/Mid [facility] Emergency Department [address] [place] [address] Phone #: ext- [phone] 06/20/2021 05:06 Patient: PRAKASH CANNON Sex: F : 1985 Age: 35yPROGRESS AND PROCEDURESCourse of Care: 05:27 06/20/21. 35 y/o female with history of thyroid cancer as well as asthma presents tot ER with 3 days history of midsternal chest pains denies exacerbation or relieving factors. Pain hasbeen constant and sharp She went to [facility] yesterday and was told that the wait is long and shewont be seen until 7 am so she came to [place]. Exam showed tenderness on the left sternal border.her EKG was normal without any ischemic changes. given Toradol. She has no risk factors for CADincluding HTN, CAD, DM, HTN. she also not have a family history CAD. she does not smoke as well 06:57 06/20/21. awaiting for troponin. will sign out to Dr Vasquez 07:24 06/20/21. care assumed at shift change, Hreviewed, waiting for workup, so EKG and CXR nml, probable costochondritis 09:25 06/20/21. workup all in and reviewed, and nml, incl. troponin; pt doing better, has reproducible sternal pain, probable costochondritis, non-cardiac CP; will d/c home w instructions, pt understands and agrees. ED care transferred. Case discussed with dr Vasquez. Brief hx: 35 y/o female with sharp midsternal chest pain x 2 days EKG normal . Pending items: lab. Tentative impression: costochondritis. Expected disposition: discharge from ED. ED care transferred. Case discussed with Dr. Goldstein. Assumed care. Brief hx: as per H. Pending items: lab. Tentative impression: Costochondritis. Expected disposition: discharge from ED. Patient counseled in person regarding the patient's stable condition, test results, diagnosis and need for follow-up. Patient agrees with plan of care. Disposition: Condition: good and stable. Discharge decision based on the following: patient's condition is stable; patient's condition is improved; patient is ambulatory; patient is active; patient drinking fluids; patient eating; patient's pain is controlled; patient's exam is improved; no abnormal te st results; improving condition on multiple repeat evaluations; social support is good; transportation is available; follow-up is available; clinical impression is consistent with outpatient treatment.CLINICAL IMPRESSION Chest wall pain. CostochondritisINSTRUCTIONS Avoid stimulants (such as cigarettes, coffee, cold medicines, sinus medicines, street drugs). Follow a low salt diet and low cholesterol diet. Do not smoke. No alcohol. Warnings: Further evaluation is necessary in order to conduct further tests. It is very important to follow up 8 Clinical Report - Physicians/Mid Levels [facility] Emergency Department [address] [place] [address] Phone #: ext- [phone] 06/20/2021 05:06 [id number] Sex[facility] F : 1985 Age: 35y with a healthcare provider. GENERAL WARNINGS: Return or contact your physician immediately if your condition worsens or changes unexpectedly, if not improving as expected, or if other problems arise. SPECIFICALLY, return if you develop chest, neck, jaw, shoulder, arm, or back pain, difficulty breathing, a fluttering sensation in your chest, lightheadedness, fainting, excessive fatigue, or sudden sweating. Your Current Medications: . No home medication. Follow-up: Return to the emergency department as needed. Follow up with your healthcare provider in five days even if well. Call for an appointment. Reason for referral: evaluation, treatment and stress test as needed. Summary of care provided to patient via paper. Understanding of the discharge instructions verbalized by patient. Expected course of illness, discharge instructions, activity level, diet, follow-up appointment and risks and benefits of treatment reviewed with patient and understanding verbalized. Agrees to plan of care.(Electronically signed by Cam Vasquez M.D. 06/20/2021 15:53) Name Value Range Interpretation Code Description Data Loreta rce(s) Supporting Document(s) ID Date Data Source [id number] 06/21/2021 08:20:00 [place] [address] RESPIRATORY CARE REPORT ==== ---------NAME------- NUMBER SEX AGE ADMIT DISC. XRAY# F/C TYPEKASSANDRA Haley [id number] F 35 06/20/21 06/20/21 [id number] X6B E/R DATE OF : 1985 M/R# [id number] PH#: [phone] TR-02 LOCATION: EMERGENCY DEPT [facility] [id number] COMP LETE:06/20/21 05:39 [place] [id number] PHYSICIAN: MURRAY Name Value Range Interpretation Code Description Data Loreta rce(s) Supporting Document(s) ID Date Data Source [id number] 06/20/2021 12:11:00 [place] [address] PHONE: [phone] FAX: [phone] Name .................. : KASSANDRA Halye Acct Number.................. : [id number] ROOM. ................. : TR-02 Number ................... : [id number] Stay type ............. : E/R Discharge Date......... ... : Admit Date ......... : 06/20/21 Admit Phys .................... : MURRAY Date of ....... : 1985 Family Phys ................... : NON STAFF Phone .................. : [phone] Age ................................ : 35 Film# .................. .:[id number] Sex ................................. : F Unsigned transcriptions are preliminary reports and do not represent a medical or legal document CHEST PORTABLE [id number] COMPLETE:06/20/21 06:11 AML [id number] Reason(s): Chest Pain PORTABLE CHEST SINGLE VIEW 5:42 AM HISTORY: Chest pain COMPARISON: None. FINDINGS: Mediastinal and hilar structures are normal. Cardiac silhouette is unremarkable. Lungs are clear. No pulmonary edema. No pleural effusions or pneumothorax. IMPRESSION: Normal exam. Electronically Reviewed and Signed By Dewayne Delgado MD , 06/20/21 12:11, JWKiara Transcribe Initials: MICHELLE, Transcribe Date: 06/20/21 09:44, Dictation Date: Copy for: EMERGENCY DEPT via modem Copy for: 710 MED REC DISCHARGED Page 1 of 1 Name Value Range Interpretation Code Description Data Loreta rce(s) Supporting Document(s) ID Date Data Source [id number] 06/20/2021 07:56:00 AM EDT [facility] Name Value Range Interpretation Code Description Data Loreta rce(s) Supporting Document(s) COMPREHENSIVE METABOLIC PANEL [facility] COMPREHENSIVE METABOLIC PANEL Sodium [Moles/volume] in Serum or Plasma 141 mEq/L 134 - 153 [facility] Potassium [Moles/volume] in Serum or Plasma 3.9 mEq/L 3.6 - 5.0 [facility] Chloride [Moles/volume] in Serum or Plasma 105 mEq/L 98 - 107 [facility] Carbon dioxide, total [Moles/volume] in Serum or Plasma 24 MEQ/L 22 - 30 [facility] Glucose [Mass/volume] in Serum or Plasma 94 MG/DL 70 - 99 [facility] BUN 7 MG/DL 7 - 21 [facility] Creatinine [Mass/volume] in Serum or Plasma 0.7 MG/DL 0.7 - 1.5 [facility] BUN/CREAT 10 8 - 27 [facility] Protein [Mass/volume] in Serum or Plasma 7.4 G/DL 6.3 - 8.2 [facility] Albumin [Mass/volume] in Serum or Plasma 4.6 G/DL 3.9 - 5.0 [facility] Globulin [Mass/volume] in Serum by calculation 2.8 GM/DL 2.4 - 3.2 [facility] A/G RATIO 1.6 0.8 - 2.0 [facility] Calcium [Mass/volume] in Serum or Plasma 10.0 MG/DL 8.4 - 10.2 [facility] Bilirubin.total [Mass/volume] in Serum or Plasma 0.8 MG/DL 0.2 - 1.3 [facility] Alkaline phosphatase [Enzymatic activity/volume] in Serum or Plasma 62 U/L 38 - 126 [facility] Aspartate aminotransferase [Enzymatic activity/volume] in Serum or Plasma 15 U/L 5 - 40 [facility] Alanine aminotransferase [Enzymatic activity/volume] in Seru m or Plasma 6 U/L 7 - 56 L [facility] Anion gap 3 in Serum or Plasma 12.0 mmol/L 8.0 - 16.0 [facility] AGE 35 yrs [facility] al NON-AA GFR >60 mL/min [facility] ital AFR AMER GFR >60 mL/min [facility] Male GFR In terprentation 20-49 yrs >60 mL/min Normal 50-59 yrs >56 mL/min Normal 60-69 yrs >49 mL/min Normal 70-79yrs >42 mL/min Normal 80 and above >35 mL/min Normal Female GFR Interpretation 20-39 yrs >60 mL/min Normal 40-49 yrs >58 mL/min Normal 50-59 yrs >51 mL/min Normal 60-69 yrs >45 mL/min Normal 70-79 yrs >39 mL/min Normal 80 and above >32 mL/min Normal ID Date Data Source [id number] 06/20/2021 07:54:00 AM EDT [facility] Name Value Range Interpretation Code Description Data Loreta rce(s) Supporting Document(s) Lipase [Enzymatic activity/volume] in Serum or Plasma 21 U/L 13 - 60 [facility] ID Date Data Source [id number] 06/20/2021 07:23:00 AM EDT [facility] Name Value Range Interpretation Code Description Data Loreta rce(s) Supporting Document(s) TROPONIN T <0.01 NG/ML 0.00 - 0.10 [facility] TROPONIN T0.1 ng/ml Recommended as the c linical threshold value forTroponin T. ID Date Data Source [id number] 06/20/2021 06:46:00 AM EDT [facility] Name Value Range Interpretation Code Description Data Loreta rce(s) Supporting Document(s) CBC W/AUTOMATED DIFF [facility] COMPLETE BLOOD COUNT Leukocytes [#/volume] in Blood by Automated count 8.2 10^3/uL 4.2 - 1 1.0 [facility] Erythrocytes [#/volume] in Blood by Automated count 4.84 10^6/uL 4. 20 - 5.40 [facility] Hemoglobin [Mass/volume] in Blood 14.1 g/dL 12.0 - 16.0 [facility] Hematocrit [Volume Fraction] of Blood by Automated count 40.7 % 3 7.0 - 47.0 [facility] Erythrocyte mean corpuscular volume [Entitic volume] by Auto mated count 84.1 fL 81.0 - 101 [facility] Erythrocyte mean corpuscular hemoglobin [Entitic mass] by Automated count 29.1 pg 27.0 - 34.0 [facility] Erythrocyte mean corpuscular hemoglobin concentration [Mass/volume] by Automated count 34.6 g/dL 31.0 - 36.0 [facility] Erythrocyte distribution width [Ratio] by Automated count 12.7 % 11.5 - 14.5 [facility] Platelets [#/volume] in Blood by Automated count 266 10^3/uL 150 - 45 0 [facility] Platelet mean volume [Entitic volume] in Blood by Automated count 8.6 fL 7.4 - 10.4 [facility] Neutrophils/100 leukocytes in Blood by Automated count 63.1 % 37. 0 - 80.0 [facility] Lymphocytes/100 leukocytes in Blood by Manual count 26.7 % 25.0 - 40.0 [facility] Monocytes/100 leukocytes in Blood by Automated count 7.1 % 3.0 - 8.0 [facility] Eosinophils/100 leukocytes in Blood by Automated count 2.0 % 0.0 - 7.0 [facility] Basophils/100 leukocytes in Blood by Automated count 0.9 % 0.0 - 2.5 [facility] %IG 0.2 % 0.0 - 0.0 H [facility] %NRBC 0.0 % 0.0 - 0.0 [facility] Neutrophils [#/volume] in Blood by Automated count 5.14 10^3/uL 2.00 - 6.90 [facility] Lymphocytes [#/volume] in Blood by Automated count 2.18 10^3/uL 0.60 - 3.40 [facility] Monocytes [#/volume] in Blood by Automated count 0.58 10^3/uL 0.00 - 0.90 [facility] Eosinophils [#/volume] in Blood by Automated count 0.16 10^3/uL 0.00 - 0.70 [facility] Basophils [#/volume] in Blood by Automated count 0.07 10^3/uL 0.00 - 0.20 [facility] #IG 0.02 10^3/uL 0.00 - 0.10 [facility] #NRBC 0.00 10^3/uL 0.00 - 0.00 [facility] MANUAL DIFF NOT INDICATED [facility] RBC MORPH NOT INDICATED [facility] ID Date Data Source [id number] 05/15/2021 08:30:00 AM EDT [facility] Name Value Range Interpretation Code Description Data Loreta rce(s) Supporting Document(s) SARS-CoV-2 RNA Resp Ql TRAV+probe DETECTED [facility] This lab was ordered by LILO schmidt and reported by LILO Weems. ID Date Data Source [id number] 04/19/2021 07:57:00 AM EDT [place] ([facility]) Name Value Range Interpretation Code Description Data Loreta rce(s) Supporting Document(s) CPK creatine phosphokinase 111 U/L 26-192 CPK Creat ine Phosphokinase [place] ([facility]) CK-mb value mass < 1.0 <3.6 CK-mb Value Mass AT [facility] ([facility]) troponin I < 0.02 < 0.10 Troponin I [facility] ([facility]) mb/CK relative index < or =4 mb/CK Relative Index [facility] ([facility]) ID Date Data Source [id number] 04/19/2021 07:57:00 AM EDT [facility] ([facility]) Name Value Range Interpretation Code Description Data Loreta rce(s) Supporting Document(s) CPK creatine phosphokinase 111 U/L 26-192 CPK Creat ine Phosphokinase [facility] ([facility]) CK-mb value mass < 1.0 <3.6 CK-mb Value Mass AT [facility] ([facility]) mb/CK relative index < or =4 mb/CK Relative Index [facility] ([facility]) troponin I < 0.02 < 0.10 Troponin I [facility] ([facility]) ID Date Data Source [id number] 04/19/2021 04:24:00 AM EDT [facility] ([facility]) Name Value Range Interpretation Code Description Data Loreta rce(s) Supporting Document(s) thryoglobulin antibodies (kevan) < 1.0 0.0-0.9 Thryo globulin Antibodies (Kevan) [facility] ([facility]) thyroglobulin quantitative 6.9 NG/mL 1.5-38.5 Thyroglob ulin Quantitative [facility] ([facility]) ID Date Data Source [id number] 04/19/2021 04:24:00 AM EDT [facility] ([facility]) Name Value Range Interpretation Code Description Data Loreta rce(s) Supporting Document(s) D-dimer quant 503.68 NG/mL <500 Above high normal [facility] ID Date Data Source [id number] 04/19/2021 04:24:00 AM EDT [facility] ([facility]) Name Value Range Interpretation Code Description Data Loreta rce(s) Supporting Document(s) white blood count 9.4 10 4.0-10.0 White Blood Count [facility] ([facility]) hemoglobin 14.4 g/dL 12.0-15.5 Hemoglobin [facility] ([facility]) red blood count 4.90 10 4.00-5.40 Red Blood Count ATHE NA ([facility]) mean corpuscular volume 86.1 fL 80.0-96.0 Mean Corpusc ular Volume [facility] ([facility]) mean corpuscular hemoglobin 29.4 pg 27.0-33.0 Mean Cor puscular Hemoglobin [facility] ([facility]) hematocrit 42.2 % 36.0-47.0 Hematocrit [facility] ([facility]) red cell distribution width 12.4 % 11.5-14.5 Red Cell Distribution Width [facility] ([facility]) mean corpuscular HGB conc 34.1 g/dL 32.0-36.5 Mean Corpu scular HGB Conc [facility] ([facility]) lymph % 37.6 % 24.0-44.0 Lymph % [facility] ([facility]) neutrophils % 53.0 % 36.0-66.0 Neutrophils % [place] ( [facility]) platelet count, automated 271 10 150-450 Platelet C ount, Automated [facility] ([facility]) mono % 5.9 % 2.0-8.0 [place] % [facility] ([facility]) eos % 2.7 % 0.0-3.0 Eos % [facility] ([facility]) baso % 0.6 % 0.0-1.0 Baso % [facility] ([facility]) immature granulocyte % 0.2 % 0-3.0 Immature Gran ulocyte % [facility] ([facility]) nucleated red blood cell % 0.0 % 0-0 Nucleated Red Blood Cell % [facility] ([facility]) lymph # 3.5 10 1.5-5.0 Lymph # [facility] ([facility]) neutrophils # 5.0 10 1.5-8.5 Neutrophils # [facility] ( [facility]) mono # 0.6 10 0.0-0.8 [place] # [facility] ([facility]) eos # 0.3 10 0.0-0.5 Eos # [facility] ([facility]) baso # 0.1 10 0.0-0.2 Baso # [facility] ([facility]) ID Date Data Source [id number] 04/19/2021 04:24:00 AM EDT [facility] ([facility]) Name Value Range Interpretation Code Description Data Loreta rce(s) Supporting Document(s) ionized calcium 4.8 mg/dL 4.5-5.3 Ionized [facility] ID Date Data Source [id number] 04/19/2021 04:24:00 AM EDT [place] ([facility]) Name Value Range Interpretation Code Description Data Loreta rce(s) Supporting Document(s) thyroglobulin quantitative 6.9 NG/mL 1.5-38.5 Thyroglob ulin Quantitative [facility] ([facility]) thryoglobulin antibodies (kevan) < 1.0 0.0-0.9 Thryo globulin Antibodies (Kevan) [place] ([facility]) ID Date Data Source [id number] 04/19/2021 04:24:00 AM EDT [facility]) Name Value Range Interpretation Code Description Data Loreta rce(s) Supporting Document(s) D-dimer quant 503.68 NG/mL <500 Above high normal D-dimer Quant [facility]) ID Date Data Source [id number] 04/19/2021 04:24:00 AM EDT [facility]) Name Value Range Interpretation Code Description Data Loreta rce(s) Supporting Document(s) white blood count 9.4 10 4.0-10.0 White Blood Count [facility] ([facility]) red blood count 4.90 10 4.00-5.40 Red Blood Count ATHE NA ([facility]) hemoglobin 14.4 g/dL 12.0-15.5 Hemoglobin [facility] ([facility]) hematocrit 42.2 % 36.0-47.0 Hematocrit [facility] ([facility]) mean corpuscular volume 86.1 fL 80.0-96.0 Mean Corpusc ular Volume [facility] ([facility]) mean corpuscular hemoglobin 29.4 pg 27.0-33.0 Mean Cor puscular Hemoglobin [facility] ([facility]) mean corpuscular HGB conc 34.1 g/dL 32.0-36.5 Mean Corpu scular HGB Conc [facility] ([facility]) red cell distribution width 12.4 % 11.5-14.5 Red Cell Distribution Width [facility] ([facility]) platelet count, automated 271 10 150-450 Platelet C ount, Automated [facility] ([facility]) neutrophils % 53.0 % 36.0-66.0 Neutrophils % [facility] ( [facility]) lymph % 37.6 % 24.0-44.0 Lymph % [facility] ([facility]) mono % 5.9 % 2.0-8.0 [place] % [facility] ([facility]) eos % 2.7 % 0.0-3.0 Eos % [facility] ([facility]) baso % 0.6 % 0.0-1.0 Baso % [place] ([facility]) immature granulocyte % 0.2 % 0-3.0 Immature Gran ulocyte % [facility] ([facility]) nucleated red blood cell % 0.0 % 0-0 Nucleated Red Blood Cell % [facility] ([facility]) neutrophils # 5.0 10 1.5-8.5 Neutrophils # [facility] ( [facility]) lymph # 3.5 10 1.5-5.0 Lymph # [facility] ([facility]) mono # 0.6 10 0.0-0.8 [place] # [facility] ([facility]) eos # 0.3 10 0.0-0.5 Eos # [facility] ([facility]) baso # 0.1 10 0.0-0.2 Baso # [facility] ([facility]) ID Date Data Source [id number] 04/19/2021 04:24:00 AM EDT [place] ([facility]) Name Value Range Interpretation Code Description Data Loreta rce(s) Supporting Document(s) ionized calcium 4.8 mg/dL 4.5-5.3 Ionized Cal[facility] ID Date Data Source [id number] 04/19/2021 04:23:00 AM EDT [facility] [facility]) Name Value Range Interpretation Code Description Data Loreta rce(s) Supporting Document(s) HCG, serum quantitative < 1.0 HCG, Serum Q uantitative [facility]) ID Date Data Source [id number] 04/19/2021 04:23:00 AM EDT [facility]) Name Value Range Interpretation Code Description Data Loreta rce(s) Supporting Document(s) thyroglobulin antibody < 15.0 <60.0 Thyroglobulin Antibody [facility]) ID Date Data Source [id number] 04/19/2021 04:23:00 AM EDT [facility]) Name Value Range Interpretation Code Description Data Loreta rce(s) Supporting Document(s) free T4 0.94 NG/dL 0.76-1.46 Free T4 [place] ([facility]) ID Date Data Source [id number] 04/19/2021 04:23:00 AM EDT [facility]) Name Value Range Interpretation Code Description Data Loreta rce(s) Supporting Document(s) thyroid stimulating hormone 5.490 uIU/mL 0.358-3.740 Above high no rmal Thyroid Stimulating Hormone RAJI ([facility]) ID Date Data Source [id number] 04/19/2021 04:23:00 AM EDT [facility]) Name Value Range Interpretation Code Description Data Loreta rce(s) Supporting Document(s) CK-mb value mass < 1.0 <3.6 CK-mb Value Mass AT [facility]) CPK creatine phosphokinase 174 U/L 26-192 CPK Creat ine Phosphokinase [place] ([facility]) troponin I < 0.02 < 0.10 Troponin I RAJI ([facility]) mb/CK relative index < or =4 mb/CK Relative Index [facility]) ID Date Data Source [id number] 04/19/2021 04:23:00 AM EDT [place] ([facility]) Name Value Range Interpretation Code Description Data Loreta rce(s) Supporting Document(s) blood urea nitrogen 10 mg/dL 7-18 Blood Urea Nitro gen RAJI ([facility]) glucose, fasting 82 mg/dL 70-100 Glucose, Fasting AT [facility] ([facility]) sodium level 140 mEq/L 136-145 Sodium Level [place] ([facility]) creatinine for GFR 0.69 mg/dL 0.55-1.30 Creatinine for GF R RAJI ([facility]) glomerular filtration rate > 60.0 >60 Glomerula r Filtration Rate RAJI ([facility]) carbon dioxide level 25 mEq/L 21-32 Carbon Dioxide Level [facility]JI ([facility]) chloride level 108 mEq/L 98-107 Above high normal Chloride Level RAJI ([facility]) potassium serum 4.4 mEq/L 3.5-5.1 [facility] calcium level 9.4 mg/dL 8.5-10.1 Calcium Level [facility]) anion gap 7 mEq/L 8-16 Below low normal Anion Gap RAJI ( [facility]) alkaline phosphatase 70 U/L 45-117 Alkaline Phosph atase [place] ([facility]) AST/SGOT 24 U/L 7-37 AST/SGOT [facility]JI ([facility]) ALT/SGPT 21 U/L 12-78 ALT/SGPT [facility]I ([facility]) albumin 4.5 gm/dL 3.2-5.2 Albumin RAJI ([facility]) total protein 8.5 gm/dL 6.4-8.2 Above high normal Total Protein A THENA ([facility]) bilirubin,total 0.5 mg/dL 0.2-1.0 Bilirubin,total ATHE NA ([facility]) albumin/globulin ratio 1.2-2.2 Below low normal Albumin /globulin Ratio RAJI ([facility]) ID Date Data Source [id number] 04/19/2021 04:23:00 AM EDT [facility]JI ([facility]) Name Value Range Interpretation Code Description Data Loreta rce(s) Supporting Document(s) HCG, serum quantitative < 1.0 HCG, Serum [facility] ID Date Data Source [id number] 04/19/2021 04:23:00 AM EDT [facility]) Name Value Range Interpretation Code Description Data Loreta rce(s) Supporting Document(s) thyroglobulin antibody < 15.0 <60.0 Thyroglobulin Antibody RAJI ([facility]) ID Date Data Source [id number] 04/19/2021 04:23:00 AM EDT [place] ([facility]) Name Value Range Interpretation Code Description Data Loreta rce(s) Supporting Document(s) free T4 0.94 NG/dL 0.76-1.46 Free T4 RAJI ([facility]) ID Date Data Source [id number] 04/19/2021 04:23:00 AM EDT [facility]) Name Value Range Interpretation Code Description Data Loreta rce(s) Supporting Document(s) thyroid stimulating hormone 5.490 uIU/mL 0.358-3.740 Above high no rmal Thyroid Stimulating Hormone [place] ([facility]) ID Date Data Source [id number] 04/19/2021 04:23:00 AM EDT [facility]) Name Value Range Interpretation Code Description Data Loreta rce(s) Supporting Document(s) CPK creatine phosphokinase 174 U/L 26-192 CPK Creat ine Phosphokinase [place] ([facility]) mb/CK relative index < or =4 mb/CK Relative Index [place] ([facility]) CK-mb value mass < 1.0 <3.6 CK-mb Value Mass AT [facility]) troponin I < 0.02 < 0.10 Troponin I [facility]) ID Date Data Source [id number] 04/19/2021 04:23:00 AM EDT [facility]) Name Value Range Interpretation Code Description Data Loreta rce(s) Supporting Document(s) glucose, fasting 82 mg/dL 70-100 Glucose, Fasting AT [facility]) creatinine for GFR 0.69 mg/dL 0.55-1.30 Creatinine for GF R [place] ([facility]) blood urea nitrogen 10 mg/dL 7-18 Blood Urea Nitro gen RAJI ([facility]) sodium level 140 mEq/L 136-145 Sodium Level RAJI ([facility]) glomerular filtration rate > 60.0 >60 Glomerula r Filtration Rate [place] ([facility]) carbon dioxide level 25 mEq/L 21-32 Carbon Dioxide Level [place] ([facility]) potassium serum 4.4 mEq/L 3.5-5.1 Potassium Serum ATH NA [facility]) chloride level 108 mEq/L 98-107 Above high normal Chloride Level [facility]) calcium level 9.4 mg/dL 8.5-10.1 Calcium Level [facility]) anion gap 7 mEq/L 8-16 Below low normal Anion Gap RAJI ( [facility]) ALT/SGPT 21 U/L 12-78 ALT/SGPT [facility]JI ([facility]) AST/SGOT 24 U/L 7-37 AST/SGOT RAJI ([facility]) alkaline phosphatase 70 U/L 45-117 Alkaline Phosph atase RAJI ([facility]) bilirubin,total 0.5 mg/dL 0.2-1.0 Bilirubin,total ATHE NA ([facility]) albumin 4.5 gm/dL 3.2-5.2 Albumin RAJI ([facility]) total protein 8.5 gm/dL 6.4-8.2 Above high normal Total Protein A THENA ([facility]) albumin/globulin ratio 1.2-2.2 Below low normal Albumin /globulin Ratio [facility]JI ([facility]) ID Date Data Source [id number] 03/23/2021 03:59:00 PM EDT RAJI ([facility]) Name Value Range Interpretation Code Description Data Loreta rce(s) Supporting Document(s) thyroid stimulating hormone 3.340 uIU/mL 0.358-3.740 Thyroid Stimulating Hormone RAJI ([facility]) free T4 0.99 NG/dL 0.76-1.46 Free T4 RAJI ([facility]) ID Date Data Source [id number] 03/23/2021 03:59:00 PM EDT [facility] ([facility]) Name Value Range Interpretation Code Description Data Loreta rce(s) Supporting Document(s) Thyroid Stimulating Hormone 3.340 uIU/ML 0.358-3.740 [facility] ([facility]) Free T4 0.99 ng/dL 0.76-1.46 [facility] ([facility]) ID Date Data Source [id number] 03/23/2021 03:59:00 PM EDT [facility] Name Value Range Interpretation Code Description Data Loreta rce(s) Supporting Document(s) thyroid stimulating hormone 3.340 uIU/mL 0.358-3.740 Thyroid Stimulating Hormone [place] ([facility]) free T4 0.99 NG/dL 0.76-1.46 Free T4 [place] ([facility]) ID Date Data Source [id number] 03/23/2021 03:59:00 PM EDT [place] ([facility]) Name Value Range Interpretation Code Description Data Loreta rce(s) Supporting Document(s) thyroid stimulating hormone 3.340 uIU/mL 0.358-3.740 Thyroid Stimulating Hormone RAJI ([facility]) free T4 0.99 NG/dL 0.76-1.46 Free T4 [place] ([facility]) ID Date Data Source [id number] 03/01/2021 07:01:55 PM EDT Lab [facility] Name Value Range Interpretation Code Description Data Loreta rce(s) Supporting Document(s) TSH,ULTRASENSITIVE @ 2.500 mIU/L (0.360-4.170) Lab [facility] ID Date Data Source [id number] 03/01/2021 02:30:41 PM EDT [facility] [place] NT INFORMATIONPatient MRN Name Date of Age Gend*PT [id number] Prakash Cannon 1985 35 years F ---PT Location Admission Date/Time Visit ID Attending Provider --- --- --- --- EPI ID CSN Admitting Provider [id number] ---POST OPERATIVE VISITDATE OF SURGERY: 01/24/21PROCEDURE: Right thyroid lobectomyI reviewed the pathology and surgery details with patient to day.DIAGNOSISTHYROID, RIGHT LOBE, LOBECTOMY: WELL DIFFERENTIATED PAPILLARY CARCINOMA, FOLLICULAR VARIANT. 1.1 X 1.1 X 1.0 CM. TUMOR EXTENDS TO A 4 MM SPAN OF PERIPHERAL, CAUTERIZED MARGIN,SEE COMMENT AND SUMMARY.The patients admits to no postoperative issues.Exam:Neck: Incision well approximated, minimal swelling, no signs of infection,incisional rednessAssessment and Plan:Low risk right papillary thyroid carcinoma minimal recurrence risk. Do notrecommend radioactive iodine.Check TSH todayDATE OF SURGERY: 01/24/21 ATTENDING: FRED PANCHAL MD PRE OPERATIVE DIAGNOSIS: Right thyroid nodule, suspicious. POST OP DIAGNOSIS: same PROCEDURE: Right thyroid lobecomyt with neuromonitoring INDICATIONS: Suspicious nodule in the right thyroid lobe based on moleculartesting. OPERATIVE FINDINGS: No suspicious neck adenopathy appreciated. The rightrecurrent nerve was functional at the end of our dissection. Possible rightupper parathyroid gland identified. Firm nodule located in the ligament ofBerry PROCEDURE DETAILS: Consent obtained from patient. She underwent general anesthesia withoutincident. Intubated with difficulty. No antibiotics were indicated. A collarincision was used in a natural skin crease. The skin and platysma were divided.Subplatysmal flaps were raised. The strap muscles were then split in themidline. The isthmus was mobilized and divided. No large node or pyramidal lobeseen The right lobe was mobilized. The upper pole vessels were divided withLigasure.. The right was normal in size but contained a firm nodule at the baseof the lobe in the ligament of Vazquez.. The recurrent nerve was found aftertaking down the upper pole and dividing the middle thyroid vein close to thethyroid gland. The nerve was traced and the lower pole vessels were then dividedon the thyroid with the nerve away and in view. I continued with thedissection until the lobe was held only by the ligament of vazquez. I couldpalpate the nodule at this point I then divided with bipolar below the nodulewith the nerve in direct view. I did not appreciate any adenopathy. The nervewas functional after our dissection. I did see what was possibly a right upperparathyroid gland adjacent to the recurrent nerve. Hemostasis was confirmedwith a valsalva. I placed hemostatic agent. I then closed strap muscle in themidline with several interrupted sutures. Then I re approximated the platysma. The skin was closed with running monocrylfollowed by steristrips. A dressing was applied. She tolerated well. Sponge andneedle counts were correct. Specimens; right thyroid lobeComplications: none Name Value Range Interpretation Code Description Data [facility] rce(s) Supporting Document(s) ID Date Data Source [id number] 02/16/2021 01:25:00 PM EDT RAJI ([facility]) Name Value Range Interpretation Code Description Data Loreta rce(s) Supporting Document(s) ID Date Data Source [id number] 02/16/2021 01:25:00 PM EDT [place] ([facility]) Name Value Range Interpretation Code Description Data Loreta rce(s) Supporting Document(s) ID Date Data Source [id number] 02/16/2021 01:25:00 PM EDT [facility]JI ([facility]) Name Value Range Interpretation Code Description Data Loreta rce(s) Supporting Document(s) ID Date Data Source [id number] 02/16/2021 01:25:00 PM ED[facility] Name Value Range Interpretation Code Description Data Loreta rce(s) Supporting Document(s) ID Date Data Source [id number] 02/16/2021 01:25:00 PM EDT [place] ([facility]) Name Value Range Interpretation Code Description Data Loreta rce(s) Supporting Document(s) ID Date Data Source [id number] 02/16/2021 01:25:00 PM EDT [facility] Name Value Range Interpretation Code Description Data Loreta rce(s) Supporting Document(s) SARS-CoV-2 (COVID-19) RNA [Presence] in Respiratory specimen by TRAV with probe detection Not Detected [facility] This lab was ordered by [facility] and reported by [employer]. ID Date Data Source [id number] 01/24/2021 01:58:14 PM EDT [facility] [place] NT INFORMATIONPatient MRN Name Date of Age Gend*PT [id number] Prakash Cannon 1985 35 years F SDCXPT Location Admission Date/Time Visit ID Attending ProviderASNE AMBULATO* 01/24/21 1114 --- Fred Panchal MD([id number]) EPI ID CSN Admitting Provider [id number] Fred Panchal MD([id number])DATE OF SURGERY: 01/24/21ATTENDING: FRED PANCHAL MDPRE OPERATIVE DIAGNOSIS: Right thyroid nodule, suspicious.POST OP DIAGNOSIS: samePROCEDURE: Right thyroid lobecomyt with neuromonitoringINDICATIONS: Suspicious nodule in the right thyroid lobe based on moleculartesting.OPERATIVE FINDINGS: No suspicious neck adenopathy appreciated. The rightrecurrent nerve was functional at the end of our dissection. Possible rightupper parathyroid gland identified. Firm nodule located in the ligament ofBerryPROCEDURE DETAILS:Consent obtained from patient. She underwent general anesthesia withoutincident. Intubated with difficulty. No antibiotics were indicated. A collarincision was used in a natural skin crease. The skin and platysma were divided.Subplatysmal flaps were raised. The strap mus cles were then split in themidline. The isthmus was mobilized and divided. No large node or pyramidal lobeseenThe right lobe was mobilized. The upper pole vessels were divided withLigasure.. The right was normal in size but contained a firm nodule at the baseof the lobe in the ligament of Vazquez.. The recurrent nerve was found aftertaking down the upper pole and dividing the middle thyroid vein close to thethyroid gland. The nerve was traced and the lower pole vessels were then dividedon the thyroid with the nerve away and in view. I continued with thedissection until the lobe was held only by the ligament of vazquez. I couldpalpate the nodule at this point I then divided with bipolar below the nodulewith the nerve in direct view. I did not appreciate any adenopathy. The nervewas functional after our dissection. I did see what was possibly a right upperparathyroid gland adjacent to the recurrent nerve. Hemostasis was confirmedwith a valsalva. I placed hemostatic agent. I then closed strap m uscle in themidline with several interrupted sutures.Then I re approximated the platysma. The skin was closed with running monocrylfollowed by steristrips. A dressing was applied. She tolerated well. Sponge andneedle counts were correct.Specimens; right thyroid lobeComplications: none Name Value Range Interpretation Code Description Data Loreta e(s) Supporting Document(s) ID Date Data Source [id number] 01/24/2021 12:52:00 PM EDT [facility] NT INFORMATIONPatient MRN Name Date of Age Gend*PT [id number] Prakash Cannon 1985 35 years F SDCXPT Location Admission Date/Time Visit ID Attending Provider --- --- --- --- EPI ID CSN Admitting Provider [id number] ---AirwayPatient location during procedure: ORUrgency: electiveDifficult airway: noAdvanced airway equipment used: noStaffingPerformed by: Micheline Lim CRNAAnesthesiologist: Yvon Gordon DOIndications and Patient ConditionIndications for airway management: anesthesiaPreoxygenated: yesPatient position: sniffingIn-line stabilization: noMask ventilation: 0 - not attemptedFinal Airway/ApproachesFinal airway type: ETTNumber of attempts at final approach: 1Number of other approaches attempted: 0Final Airway DetailsFinal ETT airway: ETT - singleCuffed: yesTechnique used for successful ETT placement: direct laryngoscopyCricoid pressure: noRSI: noInsertion site: oralBlade type/size: MAC 3.5ETT size: 7.0 mmMeasured from: lipsETT to lips: 22 c mPlacement verified by: + [id number] view: grade I - full view of glottis Name Value Range Interpretation Code Description Data Loreta rce(s) Supporting Document(s) ID Date Data Source [id number] 01/24/2021 11:47:22 AM EDT [facility] NT INFORMATIONPatient MRN Name Date of Age Gend*PT [id number] Prakash Cannon 1985 35 years F SDCXPT Location Admission Date/Time Visit ID Attending ProviderASNE AMBULATO* 01/24/21 1114 --- Fred Panchal MD([id number]) EPI ID CSN Admitting Provider [id number] Fred Panchal MD([id number])H&P reviewed. The patient was examined and there are no changes to the H&P.Fred Panchal MD11:47 AM Name Value Range Interpretation Code Description Data Loreta rce(s) Supporting Document(s) ID Date Data Source [id number] 01/30/2021 03:48:45 PM EDT Lab [place] [address] [address]Mut# Surgical Pathology ReportPatient Name: PRAKASH CANNON: 1985Accession #:[id number](s) ReceivedA: Right thyroid lobe - stitch in the upper poleClinical Diagnosis and HistoryThyroid noduleDIAGNOSISTHYROID, RIGHT LOBE, LOBECTOMY: WELL DIFFERENTIATED PAPILLARY CARCINOMA, FOLLICULAR VARIANT. 1.1 X 1.1 X 1.0 CM. TUMOR EXTENDS TO A 4 MM SPAN OF PERIPHERAL, CAUTERIZED MARGIN,SEE COMMENT AND SUMMARY.CommentsThe sections contain a region of p apillary carcinoma, follicular variantwith scattered psammoma bodies. The tumor is present near a nervefascicle within the thyroid gland. An S100 immunostain highlights thenerve fascicles but no perineural invasion is demonstrated. The tumordoes extend into a region of cauterized perimeter/margin (4 mm extent). Because of thermal artifact obscuring morphologic details, margininvolvement at this site cannot be excluded.Microscopic DescriptionPATHOLOGIC SUMMARY: 1. Procedure: Right lobectomy2. Tumor Focality: Unifocal3. Tumor Site: Right lobe4. Tumor Size: 1.1 x 1.1 x 1.0 cm5. Histologic Type: Papillary carcinoma, follicular variant,infiltrative6. Margins: Involved by carcinoma Site of involvement: peripheral margin exhibits a focus of cauteryartifact, 4 mm in greatest extent (margin involvement cannot beexcluded).7. Angioinvasion (Vascular Invasion): Not identified 8. Lymphatic Invasion: Not identified9. Mitotic Rate: <1 per 2 mm210. Perineural Invasion: Not nalini rlxeyvl15. Extrathyroidal Extension: Not lwmhokvacx63. Lymph Nodes: No. of lymph nodes involved: 0 No of lymph node examined: 513. Pathologic Stage: [id number]. Additional pathologic findings: None [id number]. Clinical History: No known radiation exposure Gross DescriptionReceived in formalin labeled "right thyroid lobe stitch in the upper pole"is an 8 gram, 4.7 x 2.6 x 1.1 cm lobe of thyroid with a suture in theupper pole. The external surface is lo to red-purple, extremely shaggyhowever intact. The specimen is inked blue and serially sectioned to showa 1.1 x 1.1 x 1.0 cm rosales-white solid ill-defined nodule located withinthe central aspect of the specimen abutting the inked external surface. The remaining cut surfaces show red-brown beefy parenchyma. The specimenis sequentially submitted in its entirety from upper to lower pole incassettes A1-A6. jrobyn/skrene Reported: 01/30/2021Electronically Signed Out By Asa Arguello MD [facility] [place] [address] [id number] component performed at [facility] [facility], Histopathology, [address] [place] [address], [phone].Reported at [facility], [address] [place] [address], [phone]. This report may includeimmunohistochemical or in-situ hybridization results. Testing wasdeveloped and the performance characteristics determined by [facility] [facility] as required by CLIA '88. The FDA hasdetermined that approval for specific use is not necessary for clinicaluse. T he quality of Hematoxylin and Eosin stains and as applicable, forall immunohistochemical and/or special stains, including positive andnegative controls, were reviewed and considered appropriate.ICD codes E04.1 C73CPT codesA: 38381B, 82314y Name Value Range Interpretation Code Description Data Loreta rce(s) Supporting Document(s) ID Date Data Source [id number] 01/19/2021 09:57:55 AM EDT [facility] NT INFORMATIONPatient MRN Name Date of Age Gend*PT [id number] Prakash Cannon 1985 35 years F OPPT Location Admission Date/Time Visit ID Attending Provider --- --- --- Fred Panchal MD([id number]) EPI ID CSN Admitting Provider [id number] ---OUTPATIENT / OBSERVATIONAL SURGICAL OR INVASIVE PROCEDUREName: Prakash Cannon : 1985 Sex: female Care Provider: Josh Sealsending Physician: Dr. Ramirez OF PRESENT ILLNESS: Ms Cannon is a 35 years old white female with ahistory of asthma who was found to have 1 cm right lobe thyroid nodule duringthe work-up for throat pain. Patient reports of mild dysphagia for past severalmonths. Denies any difficulty breathing. Recently patient underwent thyroidbiopsy which showed atypical cells present. Patient was referred to Dr. Panchal.Options were discussed. She now has elected to undergo surgical intervention.PAST MEDICAL HISTORY:Past Medical History:Diagnosis Date Asthma No Previous Anesthesia Thyroid nodulePAST SURGICAL HISTORY: History reviewed. No pertinent surgical history.ALLERGIES:AllergiesAllergen Reactions Sulfa Antibiotics AnaphylaxisMEDICATIONS:Prior to Admission medicationsMedication Sig Start Date End Date Taking? Authorizing Provideralbuterol (PROVENTIL HFA;VENTOLIN HFA) 108 (90 Base) MCG/ACT inhaler Inhale 2puffs 4 (four) times a day as needed for wheezing or shortness of breathHistorical Provider, MDSocial HistoryTobacco Use Smoking status: Never Smoker Smokeless tobacco: Never UsedSubstance Use Topics Alcohol use: Not Currently Drug use: NeverFamily HistoryProblem Relation Age of Onset Lung disease Sister Malig Hyperthermia Neg HxREVIEW OF SYSTEMS:Respiratory: Denies any shortness of breath, cough, yellow sputum production orwheezing.Cardiovascular: Denies any chest pain, pressure or tightness. Denies anyparoxysmal nocturnal dyspnea or orthopnea.GI: Denies nausea, vomiting, diarrhea, constipation or melena.Neurologic: Denies any numbness, tingling, tremors or syncope.Vascular: Denies any edema. Denies claudication.PHYSICAL EXAM:GENERAL: She is a 35 years old, pleasant white female, in no acute distress attime of examination. Vitals on arrival to the office are BP 119/74 (BP Location:Left upper arm, Patient Posi tion: Sitting) | Pulse 93 | Ht 1.651 m (5' 5") |Wt 65.2 kg (143 lb 12.8 oz) | SpO2 99% | BMI 23.93 kg/m Body mass index is23.93 kg/m ..Skin is pink, warm, and dry.NECK: She has a grade I airway. Neck is supple, midline, without cervicaladenopathy. No thyromegaly. No carotid bruits.MENTAL / NEUROLOGICAL STATUS: [id number]: Clear to auscultation. No wheezes, rhonchi or crackles.HEART: Rate rhythm regular. S1, S2. No murmur, rub or gallop.ABDOMEN: Bowel sounds positive times four. Soft, non tender. No reboundtenderness. No hepatosplenomegaly. Negative CVAT.EXTREMITIES: Pulses are symmetrical. No edema.OPERATIVE SITE: Clean dry and intact..Anesthesia complications: No previous anesthesiaCSHA Frailty Scale :: 2/10 Well (without active disease, but less fit thanpeople in category I. Often they exercise or are very active occasionally, e.g.seasonally).ASSESSMENT: Primary Diagnosis/Indication: Thyroid nodule.PLAN: Procedure: Ms Cannon is a 35-year-old female with recent diagnosis ofthyroid nodule. She now has elected to undergo THYROIDECTOMY, SUBTOTAL(LOBECTOMY) RIGHT on 9:57 Mulugeta Soto document or parts of this document, were dictated using Power[employer] speaking software. A reasonable attempt at proofreading has beenmade to minimize errors. Please call with any questions or corrections.* Name Value Range Interpretation Code Description Data Loreta rce(s) Supporting Document(s) ID Date Data Source [id number] 01/19/2021 09:10:00 AM EDT [facility] Name Value Range Interpretation Code Description Data Loreta rce(s) Supporting Document(s) SARS coronavirus 2 RNA Not Detected [facility] This lab was ordered by [facility] and reported by [employer]. ID Date Data Source [id number] 01/20/2021 02:09:18 PM EDT [facility] Name Value Range Interpretation Code Description Data [facility] rce(s) Supporting Document(s) SARS-COV-2 TRAV Lab [facility] Not DetectedReference range: Not Detecte d This nucleic acid amplification test was developed and its performance characteristics determined by [employer]. Nucleic acid amplification tests include RT-PCR and TMA. This test has not been FDA cleared or approved. This test has been authorized by FDA under an Emergency Use Authorization (EUA). This test is only authorized for the duration of time the declaration that circumstances exist justifying the authorization of the emergency use of in vitro diagnostic tests for detection of SARS-CoV-2 virus and/or diagnosis of COVID-19 infection under section 564(b)(1) of the Act, 21 U.S.C. 360bbb-3(b) (1), unless the authorization is terminated or revoked sooner. When diagnostic testing is negative, the possibility of a false negative result should be considered in the context of a patient's recent exposures and the presence of clinical signs and symptoms consistent with COVID- 19. An individual without symptoms of COVID- 19 and who is not shedding S ARS-CoV-2 virus would expect to have a negative (not detected) result in this assay. Performed At: [facility] [place], [place] [id number] Amparo Grimaldo PhD Ph:[phone] ID Date Data Source [id number] 12/19/2020 12:07:19 PM EDT [facility]PATIE NT INFORMATIONPatient MRN Name Date of Age Gend*PT [id number] Prakash Cannon 1985 35 years F ---PT Location Admission Date/Time Visit ID Attending Provider --- --- --- --- EPI ID CSN Admitting Provider [id number] ---FOLLOW UP THYROID NODULAR [id number] seen in October 2020 for a suspicious right nodule. Affirm a 50%malignancy risk.The thyroid has been biopsied and was consistent with atypiaThe nodule has suspicious ultrasound features.On Exam Pulse 88.Neck exam normal to inspection and palpationThere is no palpable cervical or supraclavicular adenopathy on either side ofthe neck .ASSESSMENT AND PLAN :We went over her options again. I have talked her on the phone as well. Monika plan on a right thyroid lobectomy possible total thyroidectomy. I marley adiagram to help explain the operation and the differences intraoperatively andpostoperatively between a total thyroidectomy and a lobectomy. A lobectomy is areasonable option for her given that the tumor is 1 cm even if thyroid cancerunlikely to require radioactive iodine treatment. The left lobe is relativelynormal. She would like to schedule surgery. Name Value Range Interpretation Code Description Data Loreta rce(s) Supporting Document(s) ID Date Data Source [id number] 12/08/2020 02:29:00 PM EDT [place] ([facility]) Name Value Range Interpretation Code Description Data Loreta rce(s) Supporting Document(s) chlamydia DNA amplification negative negative Chlamydi a DNA Amplification [place] ([facility]) GC DNA amplification negative negative GC DNA Amplific ation [facility]) ID Date Data Source [id number] 12/08/2020 02:29:00 PM EDT [facility]) Name Value Range Interpretation Code Description Data Loreta rce(s) Supporting Document(s) ID Date Data Source [id number] 12/08/2020 02:29:00 PM EDT [facility]) Name Value Range Interpretation Code Description Data Loreta rce(s) Supporting Document(s) GC DNA amplification negative negative GC DNA Amplific ation [facility]) chlamydia DNA amplification negative negative Chlamydi a DNA Amplification [facility]) ID Date Data Source [id number] 12/08/2020 02:29:00 PM EDT [facility]) Name Value Range Interpretation Code Description Data Loreta rce(s) Supporting Document(s) ID Date Data Source [id number] 12/08/2020 02:29:00 PM EDT [facility]) Name Value Range Interpretation Code Description Data Loreta rce(s) Supporting Document(s) chlamydia DNA amplification negative negative Chlamydi a DNA Amplification [facility]) GC DNA amplification negative negative GC DNA Amplific ation [facility]) ID Date Data Source [id number] 12/08/2020 02:29:00 PM EDT [facility]) Name Value Range Interpretation Code Description Data Loreta rce(s) Supporting Document(s) ID Date Data Source [id number] 12/08/2020 02:29:00 PM EDT [facility]) Name Value Range Interpretation Code Description Data Loreta rce(s) Supporting Document(s) chlamydia DNA amplification negative negative Chlamydi a DNA Amplification [facility]) GC DNA amplification negative negative GC DNA Amplific ation [facility]) ID Date Data Source [id number] 12/08/2020 02:29:00 PM EDT [facility]) Name Value Range Interpretation Code Description Data Loreta rce(s) Supporting Document(s) ID Date Data Source [id number] 12/08/2020 02:29:00 PM EDT [facility]) Name Value Range Interpretation Code Description Data Loreta rce(s) Supporting Document(s) GC DNA amplification negative negative GC DNA Amplific ation [facility]) chlamydia DNA amplification negative negative Chlamydi a DNA Amplification [facility]) ID Date Data Source [id number] 12/08/2020 02:29:00 PM EDT [facility]) Name Value Range Interpretation Code Description Data Loreta rce(s) Supporting Document(s) ID Date Data Source [id number] 12/08/2020 02:29:00 PM EDT [facility]) Name Value Range Interpretation Code Description Data Loreta rce(s) Supporting Document(s) chlamydia DNA amplification negative negative Chlamydi a DNA Amplification [facility] ([facility]) GC DNA amplification negative negative GC DNA Amplific ation [place] ([facility]) ID Date Data Source [id number] 12/08/2020 02:29:00 PM EDT [facility]) Name Value Range Interpretation Code Description Data Loreta rce(s) Supporting Document(s) ID Date Data Source [id number] 12/08/2020 02:29[facility] Name Value Range Interpretation Code Description Data Loreta rce(s) Supporting Document(s) GC DNA amplification negative negative GC DNA Amplific ation [place] ([facility]) chlamydia DNA amplification negative negative Chlamydi a DNA Amplification [facility]) ID Date Data Source [id number] 12/08/2020 02:29:00 PM EDT [facility]) Name Value Range Interpretation Code Description Data Loreta rce(s) Supporting Document(s) ID Date Data Source [id number] 12/08/2020 02:29:00 PM EDT [facility]) Name Value Range Interpretation Code Description Data Loreta rce(s) Supporting Document(s) chlamydia DNA amplification negative negative Chlamydi a DNA Amplification [place] ([facility]) GC DNA amplification negative negative GC DNA Amplific ation [facility]) ID Date Data Source [id number] 12/08/2020 02:29:00 PM EDT [facility]) Name Value Range Interpretation Code Description Data Loreta rce(s) Supporting Document(s) ID Date Data Source [id number] 12/08/2020 11:58:00 AM EDT [facility]) Name Value Range Interpretation Code Description Data Loreta rce(s) Supporting Document(s) lipase 96 U/L 73-393 Lipase [facility] ([facility]) ID Date Data Source [id number] 12/08/2020 11:58:00 AM EDT [facility] ([facility]) Name Value Range Interpretation Code Description Data Loreta rce(s) Supporting Document(s) AST/SGOT 16 U/L 7-37 AST/SGOT [facility] ([facility]) alkaline phosphatase 60 U/L 45-117 Alkaline Phosph atase [facility] ([facility]) ALT/SGPT 13 U/L 12-78 ALT/SGPT [facility] ([facility]) bilirubin,total 1.0 mg/dL 0.2-1.0 Bilirubin,total [place] ([facility]) albumin/globulin ratio 1.2-2.2 Albumin/globu moraima Ratio [facility] ([facility]) albumin 4.4 gm/dL 3.2-5.2 Albumin [facility] ([facility]) total protein 7.8 gm/dL 6.4-8.2 Total Protein [facility] ( [facility]) bilirubin,direct 0.2 mg/dL 0.0-0.2 Bilirubin,direct AT [place] ([facility]) ID Date Data Source [id number] 12/08/2020 11:58:00 AM EDT [facility] ([facility]) Name Value Range Interpretation Code Description Data Loreta rce(s) Supporting Document(s) lipase 96 U/L 73-393 Lipase [facility] ([facility]) ID Date Data Source [id number] 12/08/2020 11:58:00 AM EDT [facility] ([facility]) Name Value Range Interpretation Code Description Data Loreta rce(s) Supporting Document(s) AST/SGOT 16 U/L 7-37 AST/SGOT [facility] ([facility]) ALT/SGPT 13 U/L 12-78 ALT/SGPT [facility] ([facility]) alkaline phosphatase 60 U/L 45-117 Alkaline Phosph atase [facility] ([facility]) bilirubin,total 1.0 mg/dL 0.2-1.0 Bilirubin,total ATHE [place] ([facility]) bilirubin,direct 0.2 mg/dL 0.0-0.2 Bilirubin,direct [place] ([facility]) albumin/globulin ratio 1.2-2.2 Albumin/globu moraima Ratio [facility] ([facility]) albumin 4.4 gm/dL 3.2-5.2 Albumin [facility] ([facility]) total protein 7.8 gm/dL 6.4-8.2 Total Protein [facility] ( [facility]) ID Date Data Source [id number] 12/08/2020 11:58:00 AM EDT [place] ([facility]) Name Value Range Interpretation Code Description Data Loreta rce(s) Supporting Document(s) lipase 96 U/L 73-393 Lipase [facility] ([facility]) ID Date Data Source [id number] 12/08/2020 11:58:00 AM EDT [facility] ([facility]) Name Value Range Interpretation Code Description Data Loreta rce(s) Supporting Document(s) AST/SGOT 16 U/L 7-37 AST/SGOT [facility] ([facility]) ALT/SGPT 13 U/L 12-78 ALT/SGPT [facility] ([facility]) bilirubin,total 1.0 mg/dL 0.2-1.0 Bilirubin,total ATHE [place] ([facility]) alkaline phosphatase 60 U/L 45-117 Alkaline Phosph atase [facility] ([facility]) albumin/globulin ratio 1.2-2.2 Albumin/globu moraima Ratio [facility] ([facility]) total protein 7.8 gm/dL 6.4-8.2 Total Protein [facility] ( [facility]) bilirubin,direct 0.2 mg/dL 0.0-0.2 Bilirubin,direct [place] ([facility]) albumin 4.4 gm/dL 3.2-5.2 Albumin [facility] ([facility]) ID Date Data Source [id number] 12/08/2020 11:58:00 AM EDT [facility] ([facility]) Name Value Range Interpretation Code Description Data Loreta rce(s) Supporting Document(s) lipase 96 U/L 73-393 Lipase [facility] ([facility]) ID Date Data Source [id number] 12/08/2020 11:58:00 AM EDT [facility] ([facility]) Name Value Range Interpretation Code Description Data Loreta rce(s) Supporting Document(s) ALT/SGPT 13 U/L 12-78 ALT/SGPT [facility] ([facility]) AST/SGOT 16 U/L 7-37 AST/SGOT [facility] ([facility]) alkaline phosphatase 60 U/L 45-117 Alkaline Phosph atase [facility] ([facility]) bilirubin,direct 0.2 mg/dL 0.0-0.2 Bilirubin,direct AT [facility] ([facility]) bilirubin,total 1.0 mg/dL 0.2-1.0 Bilirubin,total ATHE NA ([facility]) albumin/globulin ratio 1.2-2.2 Albumin/globu moraima Ratio [facility] ([facility]) total protein 7.8 gm/dL 6.4-8.2 Total Protein [facility] ( [facility]) albumin 4.4 gm/dL 3.2-5.2 Albumin [facility] ([facility]) ID Date Data Source [id number] 12/08/2020 11:58:00 AM EDT [facility] ([facility]) Name Value Range Interpretation Code Description Data Loreta rce(s) Supporting Document(s) lipase 96 U/L 73-393 Lipase [facility] ([facility]) ID Date Data Source [id number] 12/08/2020 11:58:00 AM EDT [facility] ([facility]) Name Value Range Interpretation Code Description Data Loreta rce(s) Supporting Document(s) alkaline phosphatase 60 U/L 45-117 Alkaline Phosph atase [facility] ([facility]) ALT/SGPT 13 U/L 12-78 ALT/SGPT [facility] ([facility]) bilirubin,total 1.0 mg/dL 0.2-1.0 Bilirubin,total ATHE [place] ([facility]) AST/SGOT 16 U/L 7-37 AST/SGOT [facility] ([facility]) albumin 4.4 gm/dL 3.2-5.2 Albumin [facility] ([facility]) total protein 7.8 gm/dL 6.4-8.2 Total Protein [facility] ( [facility]) bilirubin,direct 0.2 mg/dL 0.0-0.2 Bilirubin,direct [place] ([facility]) albumin/globulin ratio 1.2-2.2 Albumin/globu moraima Ratio [facility] ([facility]) ID Date Data Source [id number] 12/08/2020 11:58:00 AM EDT [facility] ([facility]) Name Value Range Interpretation Code Description Data Loreta rce(s) Supporting Document(s) lipase 96 U/L 73-393 Lipase [facility] ([facility]) ID Date Data Source [id number] 12/08/2020 11:58:00 AM EDT [facility] ([facility]) Name Value Range Interpretation Code Description Data Loreta rce(s) Supporting Document(s) ALT/SGPT 13 U/L 12-78 ALT/SGPT [facility] ([facility]) AST/SGOT 16 U/L 7-37 AST/SGOT [facility] ([facility]) alkaline phosphatase 60 U/L 45-117 Alkaline Phosph atase [facility] ([facility]) bilirubin,total 1.0 mg/dL 0.2-1.0 Bilirubin,total ATHE NA ([facility]) albumin 4.4 gm/dL 3.2-5.2 Albumin [facility] ([facility]) bilirubin,direct 0.2 mg/dL 0.0-0.2 Bilirubin,direct AT [facility] ([facility]) total protein 7.8 gm/dL 6.4-8.2 Total Protein [facility] ( [facility]) albumin/globulin ratio 1.2-2.2 Albumin/globu moraima Ratio [facility] ([facility]) ID Date Data Source [id number] 12/08/2020 11:58:00 AM EDT [facility] ([facility]) Name Value Range Interpretation Code Description Data Loreta rce(s) Supporting Document(s) lipase 96 U/L 73-393 Lipase [facility] ([facility]) ID Date Data Source [id number] 12/08/2020 11:58:00 AM EDT [facility] ([facility]) Name Value Range Interpretation Code Description Data Loreta rce(s) Supporting Document(s) alkaline phosphatase 60 U/L 45-117 Alkaline Phosph atase [facility] ([facility]) ALT/SGPT 13 U/L 12-78 ALT/SGPT [facility] ([facility]) AST/SGOT 16 U/L 7-37 AST/SGOT [facility] ([facility]) bilirubin,direct 0.2 mg/dL 0.0-0.2 Bilirubin,direct [place] ([facility]) total protein 7.8 gm/dL 6.4-8.2 Total Protein [facility] ( [facility]) bilirubin,total 1.0 mg/dL 0.2-1.0 Bilirubin,total ATHE [place] ([facility]) albumin 4.4 gm/dL 3.2-5.2 Albumin [facility] ([facility]) albumin/globulin ratio 1.2-2.2 Albumin/globu moraima Ratio [facility] ([facility]) ID Date Data Source [id number] 12/08/2020 11:58:00 AM EDT [facility] ([facility]) Name Value Range Interpretation Code Description Data Loreta rce(s) Supporting Document(s) lipase 96 U/L 73-393 Lipase [facility] ([facility]) ID Date Data Source [id number] 12/08/2020 11:58:00 AM EDT [facility] ([facility]) Name Value Range Interpretation Code Description Data Loreta rce(s) Supporting Document(s) AST/SGOT 16 U/L 7-37 AST/SGOT [facility] ([facility]) alkaline phosphatase 60 U/L 45-117 Alkaline Phosph atase [facility] ([facility]) ALT/SGPT 13 U/L 12-78 ALT/SGPT [facility] ([facility]) bilirubin,total 1.0 mg/dL 0.2-1.0 Bilirubin,total AT[place] ([facility]) albumin/globulin ratio 1.2-2.2 Albumin/globu moraima Ratio [facility] ([facility]) albumin 4.4 gm/dL 3.2-5.2 Albumin [facility] ([facility]) total protein 7.8 gm/dL 6.4-8.2 Total Protein [facility] ( [facility]) bilirubin,direct 0.2 mg/dL 0.0-0.2 Bilirubin,direct [place] ([facility]) ID Date Data Source [id number] 12/08/2020 11:39:00 AM EDT [facility] ([facility]) Name Value Range Interpretation Code Description Data Loreta rce(s) Supporting Document(s) istat B-HCG < 5.0 Istat B-HCG [facility] ([facility]) ID Date Data Source [id number] 12/08/2020 11:39:00 AM EDT [facility] ([facility]) Name Value Range Interpretation Code Description Data Loreta rce(s) Supporting Document(s) istat B-HCG < 5.0 Istat B-HCG [place] ([facility]) ID Date Data Source [id number] 12/08/2020 11:39:00 AM EDT [facility] ([facility]) Name Value Range Interpretation Code Description Data Loreta rce(s) Supporting Document(s) istat B-HCG < 5.0 Istat B-HCG [facility] ([facility]) ID Date Data Source [id number] 12/08/2020 11:39:00 AM EDT [facility]) Name Value Range Interpretation Code Description Data Loreta rce(s) Supporting Document(s) istat B-HCG < 5.0 Istat B-HCG [place] ([facility]) ID Date Data Source [id number] 12/08/2020 11:39:00 [facility] Name Value Range Interpretation Code Description Data Loreta rce(s) Supporting Document(s) istat B-HCG < 5.0 Istat B-HCG [place] ([facility]) ID Date Data Source [id number] 12/08/2020 11:39:00 AM [facility] Name Value Range Interpretation Code Description Data Loreta rce(s) Supporting Document(s) istat B-HCG < 5.0 Istat B-HCG [facility] ([facility]) ID Date Data Source [id number] 12/08/2020 11:39:00 AM [facility] Name Value Range Interpretation Code Description Data Loreta rce(s) Supporting Document(s) istat B-HCG < 5.0 Istat B-HCG [place] ([facility]) ID Date Data Source [id number] 12/08/2020 11:39:00 AM EDT [facility] ([facility]) Name Value Range Interpretation Code Description Data Loreta rce(s) Supporting Document(s) istat B-HCG < 5.0 Istat B-HCG [facility] ([facility]) ID Date Data Source [id number] 12/08/2020 11:37:00 AM EDT [place] ([facility]) Name Value Range Interpretation Code Description Data Loreta rce(s) Supporting Document(s) istat HCT 43.0 % 38.0-51.0 Istat HCT [facility] ([facility]) istat chloride 105 mEq/L 98-109 Istat Chloride [facility] ([facility]) istat sodium 142 mEq/L 136-145 Istat Sodium [facility] ([facility]) istat potassium 3.6 mEq/L 3.5-5.1 Istat Potassium ATHE [place] ([facility]) istat glucose 95 mg/dL 70-105 Istat Glucose [facility] ( [facility]) istat Ca++ 5.1 mg/dL 4.5-5.3 Istat Ca++ [facility] ([facility]) istat CO2 24.0 mm/L 23.0-27.0 Istat CO2 [facility] ([facility]) istat BUN 17 mg/dL 8-26 Istat BUN [facility] ([facility]) istat creatinine 0.7 mg/dL 0.6-1.3 Istat Creatinine AT [facility]) ID Date Data Source [id number] 12/08/2020 11:37:00 AM EDT [place] ([facility]) Name Value Range Interpretation Code Description Data Loreta rce(s) Supporting Document(s) istat glucose 95 mg/dL 70-105 Istat Glucose [facility] ( [facility]) istat HCT 43.0 % 38.0-51.0 Istat HCT [facility] ([facility]) istat potassium 3.6 mEq/L 3.5-5.1 Istat Potassium [place] ([facility]) istat sodium 142 mEq/L 136-145 Istat Sodium [facility] ([facility]) istat Ca++ 5.1 mg/dL 4.5-5.3 Istat Ca++ [facility] ([facility]) istat BUN 17 mg/dL 8-26 Istat BUN [facility] ([facility]) istat chloride 105 mEq/L 98-109 Istat Chloride [facility] ([facility]) istat CO2 24.0 mm/L 23.0-27.0 Istat CO2 [place] ([facility]) istat creatinine 0.7 mg/dL 0.6-1.3 Istat Creatinine AT [facility] ([facility]) ID Date Data Source [id number] 12/08/2020 11:37:00 AM EDT [place] ([facility]) Name Value Range Interpretation Code Description Data Loreta rce(s) Supporting Document(s) istat HCT 43.0 % 38.0-51.0 Istat HCT [facility] ([facility]) istat glucose 95 mg/dL 70-105 Istat Glucose [facility] ( [facility]) istat potassium 3.6 mEq/L 3.5-5.1 Istat Potassium ATHE [place] ([facility]) istat sodium 142 mEq/L 136-145 Istat Sodium [facility] ([facility]) istat CO2 24.0 mm/L 23.0-27.0 Istat CO2 [place] [facility] [facility]) istat Ca++ 5.1 mg/dL 4.5-5.3 Istat Ca++ [facility] ([facility]) istat chloride 105 mEq/L 98-109 Istat Chloride [facility] ([facility]) istat BUN 17 mg/dL 8-26 Istat BUN [facility] ([facility]) istat creatinine 0.7 mg/dL 0.6-1.3 Istat Creatinine AT [facility] ([facility]) ID Date Data Source [id number] 12/08/2020 11:37:00 AM [facility] Name Value Range Interpretation Code Description Data Loreta rce(s) Supporting Document(s) istat glucose 95 mg/dL 70-105 Istat Glucose [facility] ( [facility]) istat HCT 43.0 % 38.0-51.0 Istat HCT [facility]I ([facility]) istat sodium 142 mEq/L 136-145 Istat Sodium RAJI (No [facility]) istat potassium 3.6 mEq/L 3.5-5.1 Istat Potassium ATHE NA ([facility]) istat chloride 105 mEq/L 98-109 Istat Chloride [facility] ([facility]) istat Ca++ 5.1 mg/dL 4.5-5.3 Istat Ca++ RA[facility] ([facility]) istat BUN 17 mg/dL 8-26 Istat BUN [facility] ([facility]) istat creatinine 0.7 mg/dL 0.6-1.3 Istat Creatinine AT [facility] ([facility]) istat CO2 24.0 mm/L 23.0-27.0 Istat CO2 [facility] ([facility]) ID Date Data Source [id number] 12/08/2020 11:37:00 AM [facility] Name Value Range Interpretation Code Description Data Loreta rce(s) Supporting Document(s) istat sodium 142 mEq/L 136-145 Istat Sodium RAJI (No [facility]) istat HCT 43.0 % 38.0-51.0 Istat HCT [facility] ([facility]) istat potassium 3.6 mEq/L 3.5-5.1 Istat Potassium ATHE NA ([facility]) istat glucose 95 mg/dL 70-105 Istat Glucose RAJI ( [facility]) istat Ca++ 5.1 mg/dL 4.5-5.3 Istat Ca++ [facility] ([facility]) istat chloride 105 mEq/L 98-109 Istat Chloride [facility] ([facility]) istat CO2 24.0 mm/L 23.0-27.0 Istat CO2 [facility] ([facility]) istat BUN 17 mg/dL 8-26 Istat BUN [facility] ([facility]) istat creatinine 0.7 mg/dL 0.6-1.3 Istat Creatinine AT [facility]) ID Date Data Source [id number] 12/08/2020 11:37:00 AM EDT [place] ([facility]) Name Value Range Interpretation Code Description Data Loreta rce(s) Supporting Document(s) istat HCT 43.0 % 38.0-51.0 Istat HCT [facility] ([facility]) istat glucose 95 mg/dL 70-105 Istat Glucose [facility] ( [facility]) istat sodium 142 mEq/L 136-145 Istat Sodium RAJI ([facility]) istat Ca++ 5.1 mg/dL 4.5-5.3 Istat Ca++ [facility] ([facility]) istat CO2 24.0 mm/L 23.0-27.0 Istat CO2 [facility] ([facility]) istat potassium 3.6 mEq/L 3.5-5.1 Istat Potassium ATHE NA ([facility]) istat chloride 105 mEq/L 98-109 Istat Chloride [facility] ([facility]) istat creatinine 0.7 mg/dL 0.6-1.3 Istat Creatinine AT [facility] ([facility]) istat BUN 17 mg/dL 8-26 Istat BUN [facility] ([facility]) ID Date Data Source [id number] 12/08/2020 11:37:00 AM EDT RA[facility]I ([facility]) Name Value Range Interpretation Code Description Data Loreta rce(s) Supporting Document(s) istat HCT 43.0 % 38.0-51.0 Istat HCT [facility] ([facility]) istat glucose 95 mg/dL 70-105 Istat Glucose RA[facility]I ( [facility]) istat potassium 3.6 mEq/L 3.5-5.1 Istat Potassium ATHE NA ([facility]) istat sodium 142 mEq/L 136-145 Istat Sodium RAJI ([facility]) istat CO2 24.0 mm/L 23.0-27.0 Istat CO2 [facility] ([facility]) istat Ca++ 5.1 mg/dL 4.5-5.3 Istat Ca++ [facility] ([facility]) istat chloride 105 mEq/L 98-109 Istat Chloride [facility] ([facility]) istat BUN 17 mg/dL 8-26 Istat BUN [facility] ([facility]) istat creatinine 0.7 mg/dL 0.6-1.3 [place]stat Creatinine [place] ([facility]) ID Date Data Source [id number] 12/08/2020 11:37:00 AM EDT RAJI ([facility]) Name Value Range Interpretation Code Description Data Loreta rce(s) Supporting Document(s) istat HCT 43.0 % 38.0-51.0 Istat HCT [facility] ([facility]) istat glucose 95 mg/dL 70-105 Istat Glucose [facility] ( [facility]) istat Ca++ 5.1 mg/dL 4.5-5.3 Istat Ca++ [facility] ([facility]) istat potassium 3.6 mEq/L 3.5-5.1 Istat Potassium ATHE NA ([facility]) istat sodium 142 mEq/L 136-145 Istat Sodium [facility]I ([facility]) istat CO2 24.0 mm/L 23.0-27.0 Istat CO2 [facility] ([facility]) istat chloride 105 mEq/L 98-109 Istat Chloride [facility] ([facility]) istat BUN 17 mg/dL 8-26 Istat BUN [facility] ([facility]) istat creatinine 0.7 mg/dL 0.6-1.3 Istat Creatinine AT [facility]) ID Date Data Source [id number] 12/08/2020 11:26:00 AM EDT [facility]) Name Value Range Interpretation Code Description Data Loreta rce(s) Supporting Document(s) ID Date Data Source [id number] 12/08/2020 11:26:00 AM EDT [facility]) Name Value Range Interpretation Code Description Data Loreta rce(s) Supporting Document(s) appearance, urine rfx clear clear Appearance, Ur ine Rfx [facility]) color, urine rfx ladi yellow Color, Urine Rfx AT [facility]) protein, urine auto rfx negative negative Protein, Uri ne Auto Rfx [place] ([facility]) specific gravity ur auto rfx 1.002-1.035 Specif ic [place] Ur Auto Rfx [place] ([facility]) pH,urine rfx 6.0 units 5.0-9.0 pH,urine Rfx [place] ([facility]) ketone, urine auto rfx trace negative Above high normal Ketone , Urine Auto Rfx [place] ([facility]) glucose, urine (UA) auto rfx negative negative Glucose , Urine (UA) Auto Rfx [place] ([facility]) urobilinogen, urine auto rfx 2.0 mg/dL 0.0-2.0 Above high n ormal Urobilinogen, Urine Auto Rfx [facility] ([facility]) bilirubin, urine auto rfx negative negative Bilirubin, Urine Auto Rfx [facility] ([facility]) nitrite, urine auto rfx negative negative Nitrite, Uri ne Auto Rfx [facility] ([facility]) leukocyte esterase ur auto rfx 2+ negative Above high normal Leukocyte Esterase Ur Auto Rfx [facility] ([facility]) WBC, urine auto rfx 17 /hpf 0-3 Above high normal WBC, Urin e Auto Rfx [facility] ([facility]) blood, urine blood rfx negative negative Blood, Urine Blood Rfx [place] ([facility]) squam epithelial cell ur aurfx 3 /hpf 0-6 Squam Epithelial Cell Ur Aurfx [facility] ([facility]) bacteria, urine auto rfx 1+ negative Above high normal Bact eria, Urine Auto Rfx [facility] ([facility]) RBC, urine auto rfx 0 /hpf 0-3 RBC, Urine Auto Rfx [place] ([facility]) mucus, urine rfx moderate negative Mucus, Urine Rfx AT [facility] ([facility]) hyaline cast, urine auto rfx 0 /lpf 0-1 Hyaline Cast, Urine Auto Rfx [place] ([facility]) ID Date Data Source [id number] 12/08/2020 11:26:00 AM EDT [place] ([facility]) Name Value Range Interpretation Code Description Data Loreta rce(s) Supporting Document(s) ID Date Data Source [id number] 12/08/2020 11:26:00 AM EDT [place] ([facility]) Name Value Range Interpretation Code Description Data Loreta rce(s) Supporting Document(s) color, urine rfx ladi yellow Color, Urine Rfx AT [facility] ([facility]) appearance, urine rfx clear clear Appearance, Ur ine Rfx [place] ([facility]) pH,urine rfx 6.0 units 5.0-9.0 pH,urine Rfx [facility] ([facility]) protein, urine auto rfx negative negative Protein, Uri ne Auto Rfx [facility] ([facility]) glucose, urine (UA) auto rfx negative negative Glucose , Urine (UA) Auto Rfx [place] ([facility]) specific gravity ur auto rfx 1.002-1.035 Specif ic [place] Ur Auto Rfx [place] ([facility]) ketone, urine auto rfx trace negative Above high normal Ketone , Urine Auto Rfx [facility] ([facility]) bilirubin, urine auto rfx negative negative Bilirubin, Urine Auto Rfx [place] ([facility]) urobilinogen, urine auto rfx 2.0 mg/dL 0.0-2.0 Above high n ormal Urobilinogen, Urine Auto Rfx [place] ([facility]) nitrite, urine auto rfx negative negative Nitrite, Uri ne Auto Rfx [place] ([facility]) WBC, urine auto rfx 17 /hpf 0-3 Above high normal WBC, Urin e Auto Rfx [place] ([facility]) leukocyte esterase ur auto rfx 2+ negative Above high normal Leukocyte Esterase Ur Auto Rfx [place] ([facility]) blood, urine blood rfx negative negative Blood, Urine Blood Rfx [place] ([facility]) bacteria, urine auto rfx 1+ negative Above high normal Bact eria, Urine Auto Rfx [place] ([facility]) squam epithelial cell ur aurfx 3 /hpf 0-6 Squam Epithelial Cell Ur Aurfx [facility] ([facility]) mucus, urine rfx moderate negative Mucus, Urine Rfx AT [facility] ([facility]) RBC, urine auto rfx 0 /hpf 0-3 RBC, Urine Auto Rfx [place] ([facility]) hyaline cast, urine auto rfx 0 /lpf 0-1 Hyaline Cast, Urine Auto Rfx [place] ([facility]) ID Date Data Source [id number] 12/08/2020 11:26:00 AM EDT [place] ([facility]) Name Value Range Interpretation Code Description Data Loreta rce(s) Supporting Document(s) ID Date Data Source [id number] 12/08/2020 11:26:00 AM EDT [place] ([facility]) Name Value Range Interpretation Code Description Data Loreta rce(s) Supporting Document(s) color, urine rfx ladi yellow Color, Urine Rfx AT [facility] ([facility]) pH,urine rfx 6.0 units 5.0-9.0 pH,urine [facility]fx [facility] specific gravity ur auto rfx 1.002-1.035 Specif ic [place] Ur Auto Rfx [facility] ([facility]) appearance, urine rfx clear clear Appearance, Ur ine Rfx [place] ([facility]) glucose, urine (UA) auto rfx negative negative Glucose , Urine (UA) Auto Rfx [place] ([facility]) urobilinogen, urine auto rfx 2.0 mg/dL 0.0-2.0 Above high n ormal Urobilinogen, Urine Auto Rfx [place] ([facility]) ketone, urine auto rfx trace negative Above high normal Ketone , Urine Auto Rfx [place] ([facility]) protein, urine auto rfx negative negative Protein, Uri ne Auto Rfx [place] ([facility]) leukocyte esterase ur auto rfx 2+ negative Above high normal Leukocyte Esterase Ur Auto Rfx [place] ([facility]) bilirubin, urine auto rfx negative negative Bilirubin, Urine Auto Rfx [place] ([facility]) blood, urine blood rfx negative negative Blood, Urine Blood Rfx [place] ([facility]) nitrite, urine auto rfx negative negative Nitrite, Uri ne Auto Rfx [place] ([facility]) bacteria, urine auto rfx 1+ negative Above high normal Bact eria, Urine Auto Rfx [facility] ([facility]) RBC, urine auto rfx 0 /hpf 0-3 RBC, Urine Auto Rfx [facility] ([facility]) WBC, urine auto rfx 17 /hpf 0-3 Above high normal WBC, Urin e Auto Rfx [facility] ([facility]) squam epithelial cell ur aurfx 3 /hpf 0-6 Squam Epithelial Cell Ur Aurfx [facility] ([facility]) mucus, urine rfx moderate negative Mucus, Urine Rfx AT [facility]) hyaline cast, urine auto rfx 0 /lpf 0-1 Hyaline Cast, Urine Auto Rfx [place] ([facility]) ID Date Data Source [id number] 12/08/2020 11:26:00 AM EDT [place] ([facility]) Name Value Range Interpretation Code Description Data Loreta rce(s) Supporting Document(s) ID Date Data Source [id number] 12/08/2020 11:26:00 AM EDT [place] ([facility]) Name Value Range Interpretation Code Description Data Loreta rce(s) Supporting Document(s) color, urine rfx ladi yellow Color, Urine Rfx AT [facility] ([facility]) appearance, urine rfx clear clear Appearance, Ur ine Rfx [place] ([facility]) specific gravity ur auto rfx 1.002-1.035 Specif ic [place] Ur Auto Rfx [place] ([facility]) pH,urine rfx 6.0 units 5.0-9.0 pH,urine Rfx [place] ([facility]) protein, urine auto rfx negative negative Protein, Uri ne Auto Rfx [place] ([facility]) bilirubin, urine auto rfx negative negative Bilirubin, Urine Auto Rfx [place] ([facility]) ketone, urine auto rfx trace negative Above high normal Ketone , Urine Auto Rfx [facility] ([facility]) glucose, urine (UA) auto rfx negative negative Glucose , Urine (UA) Auto Rfx [place] ([facility]) urobilinogen, urine auto rfx 2.0 mg/dL 0.0-2.0 Above high n ormal Urobilinogen, Urine Auto Rfx [place] ([facility]) blood, urine blood rfx negative negative Blood, Urine Blood Rfx [place] ([facility]) leukocyte esterase ur auto rfx 2+ negative Above high normal Leukocyte Esterase Ur Auto Rfx [place] ([facility]) nitrite, urine auto rfx negative negative Nitrite, Uri ne Auto Rfx [place] ([facility]) squam epithelial cell ur aurfx 3 /hpf 0-6 Squam Epithelial Cell Ur Aurfx [place] ([facility]) WBC, urine auto rfx 17 /hpf 0-3 Above high normal WBC, Urin e Auto Rfx [place] ([facility]) bacteria, urine auto rfx 1+ negative Above high normal Bact eria, Urine Auto Rfx [place] ([facility]) RBC, urine auto rfx 0 /hpf 0-3 RBC, Urine Auto Rfx [place] ([facility]) mucus, urine rfx moderate negative Mucus, Urine Rfx AT [facility]) hyaline cast, urine auto rfx 0 /lpf 0-1 Hyaline Cast, Urine Auto Rfx [place] ([facility]) ID Date Data Source [id number] 12/08/2020 11:26:00 AM EDT [facility]) Name Value Range Interpretation Code Description Data [place]oreta rce(s) Supporting Document(s) ID Date Data Source [id number] 12/08/2020 11:26:00 AM EDT [facility]) Name Value Range Interpretation Code Description Data Loreta rce(s) Supporting Document(s) pH,urine rfx 6.0 units 5.0-9.0 pH,urine Rfx [place] ([facility]) color, urine rfx ladi yellow Color, Urine Rfx AT [facility] ([facility]) appearance, urine rfx clear clear Appearance, Ur ine Rfx [place] ([facility]) specific gravity ur auto rfx 1.002-1.035 Specif ic [place] Ur Auto Rfx [place] ([facility]) glucose, urine (UA) auto rfx negative negative Glucose , Urine (UA) Auto Rfx [place] ([facility]) ketone, urine auto rfx trace negative Above high normal Ketone , Urine Auto Rfx [place] ([facility]) protein, urine auto rfx negative negative Protein, Uri ne Auto Rfx [place] ([facility]) bilirubin, urine auto rfx negative negative Bilirubin, Urine Auto Rfx [place] ([facility]) nitrite, urine auto rfx negative negative Nitrite, Uri ne Auto Rfx [place] ([facility]) urobilinogen, urine auto rfx 2.0 mg/dL 0.0-2.0 Above high n ormal Urobilinogen, Urine Auto Rfx [place] ([facility]) leukocyte esterase ur auto rfx 2+ negative Above high normal Leukocyte Esterase Ur Auto Rfx [place] ([facility]) blood, urine blood rfx negative negative Blood, Urine Blood Rfx [place] ([facility]) RBC, urine auto rfx 0 /hpf 0-3 RBC, Urine Auto Rfx [place] ([facility]) WBC, urine auto rfx 17 /hpf 0-3 Above high normal WBC, Urin e Auto Rfx [place] ([facility]) mucus, urine rfx moderate negative Mucus, Urine Rfx [facility] ([facility]) squam epithelial cell ur aurfx 3 /hpf 0-6 Squam Epithelial Cell Ur Aurfx [place] ([facility]) bacteria, urine auto rfx 1+ negative Above high normal Bact eria, Urine Auto Rfx [place] ([facility]) hyaline cast, urine auto rfx 0 /lpf 0-1 Hyaline Cast, Urine Auto Rfx [place] ([facility]) ID Date Data Source [id number] 12/08/2020 11:26:00 AM EDT [facility]) Name Value Range Interpretation Code Description Data [place] rce(s) Supporting Document(s) ID Date Data Source [id number] 12/08/2020 11:26:00 AM EDT [facility]) Name Value Range Interpretation Code Description Data Lore[place] rce(s) Supporting Document(s) appearance, urine rfx clear clear Appearance, Ur ine Rfx [place] ([facility]) color, urine rfx ladi yellow Color, Urine Rfx AT [facility] ([facility]) protein, urine auto rfx negative negative Protein, Uri ne Auto Rfx [facility] ([facility]) specific gravity ur auto rfx 1.002-1.035 Specif ic [place] Ur Auto Rfx [facility] ([facility]) pH,urine rfx 6.0 units 5.0-9.0 pH,urine Rfx [facility] (No [facility]) bilirubin, urine auto rfx negative negative Bilirubin, Urine Auto Rfx [facility] ([facility]) glucose, urine (UA) auto rfx negative negative Glucose , Urine (UA) Auto Rfx [facility] ([facility]) urobilinogen, urine auto rfx 2.0 mg/dL 0.0-2.0 Above high n ormal Urobilinogen, Urine Auto Rfx [place] ([facility]) ketone, urine auto rfx trace negative Above high normal Ketone , Urine Auto Rfx [place] ([facility]) leukocyte esterase ur auto rfx 2+ negative Above high normal Leukocyte Esterase Ur Auto Rfx [facility] ([facility]) WBC, urine auto rfx 17 /hpf 0-3 Above high normal WBC, Urin e Auto Rfx [place] ([facility]) blood, urine blood rfx negative negative Blood, Urine Blood Rfx [place] ([facility]) nitrite, urine auto rfx negative negative Nitrite, Uri ne Auto Rfx [place] ([facility]) RBC, urine auto rfx 0 /hpf 0-3 RBC, Urine Auto Rfx [facility] ([facility]) squam epithelial cell ur aurfx 3 /hpf 0-6 Squam Epithelial Cell Ur Aurfx [facility] ([facility]) bacteria, urine auto rfx 1+ negative Above high normal Bact eria, Urine Auto Rfx [place] ([facility]) mucus, urine rfx moderate negative Mucus, Urine Rfx AT [facility] ([facility]) hyaline cast, urine auto rfx 0 /lpf 0-1 Hyaline Cast, Urine Auto Rfx [place] ([facility]) ID Date Data Source [id number] 12/08/2020 11:26:00 AM EDT [place] ([facility]) Name Value Range Interpretation Code Description Data Loreta rce(s) Supporting Document(s) ID Date Data Source [id number] 12/08/2020 11:26:00 AM EDT [place] ([facility]) Name Value Range Interpretation Code Description Data [place] rce(s) Supporting Document(s) color, urine rfx ladi yellow Color, Urine Rfx [place] ([facility]) appearance, urine rfx clear clear Appearance, Ur ine Rfx [place] ([facility]) protein, urine auto rfx negative negative Protein, Uri ne Auto Rfx [place] ([facility]) pH,urine rfx 6.0 units 5.0-9.0 pH,urine Rfx [facility] (No [facility]) specific gravity ur auto rfx 1.002-1.035 Specif ic [place] Ur Auto Rfx [place] ([facility]) urobilinogen, urine auto rfx 2.0 mg/dL 0.0-2.0 Above high n ormal Urobilinogen, Urine Auto Rfx [place] ([facility]) glucose, urine (UA) auto rfx negative negative Glucose , Urine (UA) Auto Rfx [place] ([facility]) ketone, urine auto rfx trace negative Above high normal Ketone , Urine Auto Rfx [place] ([facility]) bilirubin, urine auto rfx negative negative Bilirubin, Urine Auto Rfx [place] ([facility]) leukocyte esterase ur auto rfx 2+ negative Above high normal Leukocyte Esterase Ur Auto Rfx [facility] ([facility]) blood, urine blood rfx negative negative Blood, Urine Blood Rfx [place] ([facility]) nitrite, urine auto rfx negative negative Nitrite, Uri ne Auto Rfx [place] ([facility]) bacteria, urine auto rfx 1+ negative Above high normal Bact eria, Urine Auto Rfx [place] ([facility]) WBC, urine auto rfx 17 /hpf 0-3 Above high normal WBC, Urin e Auto Rfx [place] ([facility]) RBC, urine auto rfx 0 /hpf 0-3 RBC, Urine Auto Rfx [place] ([facility]) squam epithelial cell ur aurfx 3 /hpf 0-6 Squam Epithelial Cell Ur Aurfx [facility] ([facility]) mucus, urine rfx moderate negative Mucus, Urine Rfx AT [facility] ([facility]) hyaline cast, urine auto rfx 0 /lpf 0-1 Hyaline Cast, Urine Auto Rfx [place] ([facility]) ID Date Data Source [id number] 12/08/2020 11:26:00 AM EDT [place] ([facility]) Name Value Range Interpretation Code Description Data [place]oreta rce(s) Supporting Document(s) ID Date Data Source [id number] 12/08/2020 11:26:00 AM EDT [place] ([facility]) Name Value Range Interpretation Code Description Data [place]ore[place] rce(s) Supporting Document(s) appearance, urine rfx clear clear Appearance, Ur ine Rfx [place] ([facility]) color, urine rfx ladi yellow Color, Urine Rfx [facility] ([facility]) protein, urine auto rfx negative negative Protein, Uri ne Auto Rfx [place] ([facility]) specific gravity ur auto rfx 1.002-1.035 Specif ic [place] Ur Auto Rfx [place] ([facility]) glucose, urine (UA) auto rfx negative negative Glucose , Urine (UA) Auto Rfx [place] ([facility]) pH,urine rfx 6.0 units 5.0-9.0 pH,urine Rfx [facility] (No [facility]) bilirubin, urine auto rfx negative negative Bilirubin, Urine Auto Rfx [place] ([facility]) urobilinogen, urine auto rfx 2.0 mg/dL 0.0-2.0 Above high n ormal Urobilinogen, Urine Auto Rfx [place] ([facility]) ketone, urine auto rfx trace negative Above high normal Ketone , Urine Auto Rfx [place] ([facility]) nitrite, urine auto rfx negative negative Nitrite, Uri ne Auto Rfx [facility] ([facility]) WBC, urine auto rfx 17 /hpf 0-3 Above high normal WBC, Urin e Auto Rfx [facility] ([facility]) blood, urine blood rfx negative negative Blood, Urine Blood Rfx [facility] ([facility]) leukocyte esterase ur auto rfx 2+ negative Above high normal Leukocyte Esterase Ur Auto Rfx [facility] ([facility]) bacteria, urine auto rfx 1+ negative Above high normal Bact eria, Urine Auto Rfx [facility] ([facility]) squam epithelial cell ur aurfx 3 /hpf 0-6 Squam Epithelial Cell Ur Aurfx [facility] ([facility]) RBC, urine auto rfx 0 /hpf 0-3 RBC, Urine Auto Rfx RAJI ([facility]) mucus, urine rfx moderate negative Mucus, Urine Rfx AT [facility] ([facility]) hyaline cast, urine auto rfx 0 /lpf 0-1 Hyaline Cast, Urine Auto Rfx [place] ([facility]) ID Date Data Source [id number] 12/08/2020 11:25:00 AM EDT [place] ([facility]) Name Value Range Interpretation Code Description Data Loreta rce(s) Supporting Document(s) white blood count 8.1 10 4.0-10.0 White Blood Count RAJI ([facility]) hematocrit 42.6 % 36.0-47.0 Hematocrit RA[facility]I ([facility]) red blood count 5.05 10 4.00-5.40 Red Blood Count ATHE ([facility]) hemoglobin 14.9 g/dL 12.0-15.5 Hemoglobin RAJI ([facility]) mean corpuscular hemoglobin 29.5 pg 27.0-33.0 Mean Cor puscular Hemoglobin RAJI ([facility]) mean corpuscular HGB conc 35.0 g/dL 32.0-36.5 Mean Corpu scular HGB Conc RAJI ([facility]) mean corpuscular volume 84.4 fL 80.0-96.0 Mean Corpusc ular Volume RAJI ([facility]) platelet count, automated 259 10 150-450 Platelet C ount, Automated RAJI ([facility]) lymph % 27.7 % 24.0-44.0 Lymph % RAJI ([facility]) neutrophils % 51.7 % 36.0-66.0 Neutrophils % RAJI ( [facility]) red cell distribution width 12.7 % 11.5-14.5 Red Cell Distribution Width RAJI ([facility]) mono % 7.8 % 2.0-8.0 [place] % RAJI ([facility]) eos % 11.5 % 0.0-3.0 Above high normal Eos % [place] ([facility]) baso % 1.1 % 0.0-1.0 Above high normal Baso % RAJI ([facility]) neutrophils # 4.2 10 1.5-8.5 Neutrophils # RAJI ( [facility]) lymph # 2.2 10 1.5-5.0 Lymph # RAJI ([facility]) immature granulocyte % 0.2 % 0-3.0 Immature Gran ulocyte % RAJI ([facility]) nucleated red blood cell % 0.0 % 0-0 Nucleated Red Blood Cell % RAJI ([facility]) eos # 0.9 10 0.0-0.5 Above high normal Eos # RAJI ([facility]) baso # 0.1 10 0.0-0.2 Baso # [facility]JI ([facility]) mono # 0.6 10 0.0-0.8 [place] # RAJI ([facility]) ID Date Data Source [id number] 12/08/2020 11:25:00 AM EDT [place] ([facility]) Name Value Range Interpretation Code Description Data Loreta rce(s) Supporting Document(s) white blood count 8.1 10 4.0-10.0 White Blood Count RAJI ([facility]) red blood count 5.05 10 4.00-5.40 Red Blood Count ATHE ([facility]) hemoglobin 14.9 g/dL 12.0-15.5 Hemoglobin RAJI ([facility]) hematocrit 42.6 % 36.0-47.0 Hematocrit [facility]I ([facility]) mean corpuscular hemoglobin 29.5 pg 27.0-33.0 Mean Cor puscular Hemoglobin RAJI ([facility]) mean corpuscular HGB conc 35.0 g/dL 32.0-36.5 Mean Corpu scular HGB Conc RAJI ([facility]) mean corpuscular volume 84.4 fL 80.0-96.0 Mean Corpusc ular Volume RAJI ([facility]) neutrophils % 51.7 % 36.0-66.0 Neutrophils % RAJI ( [facility]) platelet count, automated 259 10 150-450 Platelet C ount, Automated RAJI ([facility]) red cell distribution width 12.7 % 11.5-14.5 Red Cell Distribution Width [facility]JI ([facility]) eos % 11.5 % 0.0-3.0 Above high normal Eos % RAJI ([facility]) mono % 7.8 % 2.0-8.0 [place] % RAJI ([facility]) lymph % 27.7 % 24.0-44.0 Lymph % RA[facility]I ([facility]) immature granulocyte % 0.2 % 0-3.0 Immature Gran ulocyte % RAJI ([facility]) nucleated red blood cell % 0.0 % 0-0 Nucleated Red Blood Cell % RAJI ([facility]) baso % 1.1 % 0.0-1.0 Above high normal Baso % [facility]I ([facility]) lymph # 2.2 10 1.5-5.0 Lymph # RAJI ([facility]) neutrophils # 4.2 10 1.5-8.5 Neutrophils # RAJI ( [facility]) mono # 0.6 10 0.0-0.8 [place] # RAJI ([facility]) eos # 0.9 10 0.0-0.5 Above high normal Eos # RAJI ([facility]) baso # 0.1 10 0.0-0.2 Baso # [facility]JI ([facility]) ID Date Data Source [id number] 12/08/2020 11:25:00 AM EDT [place] ([facility]) Name Value Range Interpretation Code Description Data Loreta rce(s) Supporting Document(s) white blood count 8.1 10 4.0-10.0 White Blood Count RAJI ([facility]) mean corpuscular volume 84.4 fL 80.0-96.0 Mean Corpusc ular Volume RAJI ([facility]) hemoglobin 14.9 g/dL 12.0-15.5 Hemoglobin RAJI ([facility]) hematocrit 42.6 % 36.0-47.0 Hematocrit [facility] ([facility]) red blood count 5.05 10 4.00-5.40 Red Blood Count ATHE ([facility]) red cell distribution width 12.7 % 11.5-14.5 Red Cell Distribution Width [facility]JI ([facility]) mean corpuscular hemoglobin 29.5 pg 27.0-33.0 Mean Cor puscular Hemoglobin RAJI ([facility]) mean corpuscular HGB conc 35.0 g/dL 32.0-36.5 Mean Corpu scular HGB Conc RAJI ([facility]) neutrophils % 51.7 % 36.0-66.0 Neutrophils % RAJI ( [facility]) mono % 7.8 % 2.0-8.0 [place] % [facility]JI ([facility]) lymph % 27.7 % 24.0-44.0 Lymph % [facility] ([facility]) platelet count, automated 259 10 150-450 Platelet C ount, Automated RAJI ([facility]) baso % 1.1 % 0.0-1.0 Above high normal Baso % [place] ([facility]) immature granulocyte % 0.2 % 0-3.0 Immature Gran ulocyte % [place] ([facility]) eos % 11.5 % 0.0-3.0 Above high normal Eos % [facility]I ([facility]) nucleated red blood cell % 0.0 % 0-0 Nucleated Red Blood Cell % [facility]I ([facility]) mono # 0.6 10 0.0-0.8 [place] # RAJI ([facility]) lymph # 2.2 10 1.5-5.0 Lymph # [facility]I ([facility]) neutrophils # 4.2 10 1.5-8.5 Neutrophils # RAJI ( [facility]) eos # 0.9 10 0.0-0.5 Above high normal Eos # RAJI ([facility]) baso # 0.1 10 0.0-0.2 Baso # [facility]JI ([facility]) ID Date Data Source [id number] 12/08/2020 11:25:00 AM EDT [place] ([facility]) Name Value Range Interpretation Code Description Data Loreta rce(s) Supporting Document(s) white blood count 8.1 10 4.0-10.0 White Blood Count RAJI ([facility]) red blood count 5.05 10 4.00-5.40 Red Blood Count ATHE ([facility]) hemoglobin 14.9 g/dL 12.0-15.5 Hemoglobin RAJI ([facility]) hematocrit 42.6 % 36.0-47.0 Hematocrit [facility] ([facility]) mean corpuscular volume 84.4 fL 80.0-96.0 Mean Corpusc ular Volume RAJI ([facility]) mean corpuscular hemoglobin 29.5 pg 27.0-33.0 Mean Cor puscular Hemoglobin [facility]JI ([facility]) red cell distribution width 12.7 % 11.5-14.5 Red Cell Distribution Width [facility]JI ([facility]) mean corpuscular HGB conc 35.0 g/dL 32.0-36.5 Mean Corpu scular HGB Conc RAJI ([facility]) platelet count, automated 259 10 150-450 Platelet C ount, Automated RAJI ([facility]) neutrophils % 51.7 % 36.0-66.0 Neutrophils % RAJI ( [facility]) lymph % 27.7 % 24.0-44.0 Lymph % [facility] ([facility]) eos % 11.5 % 0.0-3.0 Above high normal Eos % [facility] ([facility]) mono % 7.8 % 2.0-8.0 [place] % [facility]I ([facility]) baso % 1.1 % 0.0-1.0 Above high normal Baso % [facility]I ([facility]) nucleated red blood cell % 0.0 % 0-0 Nucleated Red Blood Cell % [facility]JI ([facility]) neutrophils # 4.2 10 1.5-8.5 Neutrophils # RAJI ( [facility]) immature granulocyte % 0.2 % 0-3.0 Immature Gran ulocyte % RAJI ([facility]) eos # 0.9 10 0.0-0.5 Above high normal Eos # [facility]JI ([facility]) lymph # 2.2 10 1.5-5.0 Lymph # [facility]I ([facility]) mono # 0.6 10 0.0-0.8 [place] # RAJI ([facility]) baso # 0.1 10 0.0-0.2 Baso # [facility]I ([facility]) ID Date Data Source [id number] 12/08/2020 11:25:00 AM EDT RAJI ([facility]) Name Value Range Interpretation Code Description Data Loreta rce(s) Supporting Document(s) red blood count 5.05 10 4.00-5.40 Red Blood Count ATHE NA ([facility]) white blood count 8.1 10 4.0-10.0 White Blood Count RAJI ([facility]) hematocrit 42.6 % 36.0-47.0 Hematocrit [facility]I ([facility]) mean corpuscular volume 84.4 fL 80.0-96.0 Mean Corpusc ular Volume RAJI ([facility]) hemoglobin 14.9 g/dL 12.0-15.5 Hemoglobin [facility]I ([facility]) mean corpuscular hemoglobin 29.5 pg 27.0-33.0 Mean Cor puscular Hemoglobin ARJI ([facility]) mean corpuscular HGB conc 35.0 g/dL 32.0-36.5 Mean Corpu scular HGB Conc RAJI ([facility]) red cell distribution width 12.7 % 11.5-14.5 Red Cell Distribution Width [facility]JI ([facility]) lymph % 27.7 % 24.0-44.0 Lymph % [facility]I ([facility]) platelet count, automated 259 10 150-450 Platelet C ount, Automated RAJI ([facility]) neutrophils % 51.7 % 36.0-66.0 Neutrophils % [facility]I ( [facility]) eos % 11.5 % 0.0-3.0 Above high normal Eos % [place] ([facility]) baso % 1.1 % 0.0-1.0 Above high normal Baso % [place] ([facility]) immature granulocyte % 0.2 % 0-3.0 Immature Gran ulocyte % [facility]I ([facility]) mono % 7.8 % 2.0-8.0 [place] % [facility]I ([facility]) lymph # 2.2 10 1.5-5.0 Lymph # [facility]I ([facility]) nucleated red blood cell % 0.0 % 0-0 Nucleated Red Blood Cell % [place] ([facility]) neutrophils # 4.2 10 1.5-8.5 Neutrophils # [place] ( [facility]) eos # 0.9 10 0.0-0.5 Above high normal Eos # [facility]I ([facility]) mono # 0.6 10 0.0-0.8 [place] # [facility]I ([facility]) baso # 0.1 10 0.0-0.2 Baso # [facility] ([facility]) ID Date Data Source [id number] 12/08/2020 11:25:00 AM EDT [place] ([facility]) Name Value Range Interpretation Code Description Data Loreta rce(s) Supporting Document(s) white blood count 8.1 10 4.0-10.0 White Blood Count [place] ([facility]) red blood count 5.05 10 4.00-5.40 Red Blood Count ATHE NA ([facility]) hematocrit 42.6 % 36.0-47.0 Hematocrit RAJI ([facility]) hemoglobin 14.9 g/dL 12.0-15.5 Hemoglobin [facility]I ([facility]) mean corpuscular hemoglobin 29.5 pg 27.0-33.0 Mean Cor puscular Hemoglobin [facility]I ([facility]) mean corpuscular volume 84.4 fL 80.0-96.0 Mean Corpusc ular Volume RAJI ([facility]) mean corpuscular HGB conc 35.0 g/dL 32.0-36.5 Mean Corpu scular HGB Conc RAJI ([facility]) neutrophils % 51.7 % 36.0-66.0 Neutrophils % RA[facility]I ( [facility]) red cell distribution width 12.7 % 11.5-14.5 Red Cell Distribution Width RAJI ([facility]) platelet count, automated 259 10 150-450 Platelet C ount, Automated RA[facility]I ([facility]) mono % 7.8 % 2.0-8.0 [place] % [facility]I ([facility]) lymph % 27.7 % 24.0-44.0 Lymph % [facility] ([facility]) eos % 11.5 % 0.0-3.0 Above high normal Eos % [facility]I ([facility]) immature granulocyte % 0.2 % 0-3.0 Immature Gran ulocyte % [facility]I ([facility]) nucleated red blood cell % 0.0 % 0-0 Nucleated Red Blood Cell % [facility]I ([facility]) baso % 1.1 % 0.0-1.0 Above high normal Baso % [facility] ([facility]) mono # 0.6 10 0.0-0.8 [place] # [facility]I ([facility]) lymph # 2.2 10 1.5-5.0 Lymph # [facility]I ([facility]) neutrophils # 4.2 10 1.5-8.5 Neutrophils # [facility]JI ( [facility]) eos # 0.9 10 0.0-0.5 Above high normal Eos # [facility]I ([facility]) baso # 0.1 10 0.0-0.2 Baso # [facility]I ([facility]) ID Date Data Source [id number] 12/08/2020 11:25:00 AM EDT RAJI ([facility]) Name Value Range Interpretation Code Description Data Loreta rce(s) Supporting Document(s) white blood count 8.1 10 4.0-10.0 White Blood Count [facility]I ([facility]) red blood count 5.05 10 4.00-5.40 Red Blood Count ATHE NA ([facility]) hemoglobin 14.9 g/dL 12.0-15.5 Hemoglobin [facility]I ([facility]) hematocrit 42.6 % 36.0-47.0 Hematocrit [facility] ([facility]) mean corpuscular HGB conc 35.0 g/dL 32.0-36.5 Mean Corpu scular HGB Conc RAJI ([facility]) mean corpuscular volume 84.4 fL 80.0-96.0 Mean Corpusc ular Volume RAJI ([facility]) mean corpuscular hemoglobin 29.5 pg 27.0-33.0 Mean Cor puscular Hemoglobin RA[facility]I ([facility]) red cell distribution width 12.7 % 11.5-14.5 Red Cell Distribution Width [facility]I ([facility]) neutrophils % 51.7 % 36.0-66.0 Neutrophils % [place] ( [facility]) platelet count, automated 259 10 150-450 Platelet C ount, Automated RAJI ([facility]) eos % 11.5 % 0.0-3.0 Above high normal Eos % [facility] ([facility]) lymph % 27.7 % 24.0-44.0 Lymph % [facility] ([facility]) mono % 7.8 % 2.0-8.0 [place] % [facility]I ([facility]) nucleated red blood cell % 0.0 % 0-0 Nucleated Red Blood Cell % [facility] ([facility]) immature granulocyte % 0.2 % 0-3.0 Immature Gran ulocyte % [facility] ([facility]) baso % 1.1 % 0.0-1.0 Above high normal Baso % [facility] ([facility]) neutrophils # 4.2 10 1.5-8.5 Neutrophils # [facility]I ( [facility]) mono # 0.6 10 0.0-0.8 [place] # [facility]I ([facility]) lymph # 2.2 10 1.5-5.0 Lymph # [facility]I ([facility]) baso # 0.1 10 0.0-0.2 Baso # [facility] ([facility]) eos # 0.9 10 0.0-0.5 Above high normal Eos # [facility]I ([facility]) ID Date Data Source [id number] 12/08/2020 11:25:00 AM EDT [place] ([facility]) Name Value Range Interpretation Code Description Data Loreta rce(s) Supporting Document(s) white blood count 8.1 10 4.0-10.0 White Blood Count [facility]I ([facility]) red blood count 5.05 10 4.00-5.40 Red Blood Count ATHE ([facility]) hemoglobin 14.9 g/dL 12.0-15.5 Hemoglobin [facility]I ([facility]) hematocrit 42.6 % 36.0-47.0 Hematocrit [facility] ([facility]) mean corpuscular hemoglobin 29.5 pg 27.0-33.0 Mean Cor puscular Hemoglobin [facility]I ([facility]) mean corpuscular volume 84.4 fL 80.0-96.0 Mean Corpusc ular Volume RAJI ([facility]) platelet count, automated 259 10 150-450 Platelet C ount, Automated [facility] ([facility]) mean corpuscular HGB conc 35.0 g/dL 32.0-36.5 Mean Corpu scular HGB Conc [facility]I ([facility]) red cell distribution width 12.7 % 11.5-14.5 Red Cell Distribution Width [facility] ([facility]) lymph % 27.7 % 24.0-44.0 Lymph % [facility] ([facility]) mono % 7.8 % 2.0-8.0 [place] % [place] ([facility]) neutrophils % 51.7 % 36.0-66.0 Neutrophils % [place] ( [facility]) immature granulocyte % 0.2 % 0-3.0 Immature Gran ulocyte % [place] ([facility]) eos % 11.5 % 0.0-3.0 Above high normal Eos % [place] ([facility]) baso % 1.1 % 0.0-1.0 Above high normal Baso % [place] ([facility]) nucleated red blood cell % 0.0 % 0-0 Nucleated Red Blood Cell % [place] ([facility]) lymph # 2.2 10 1.5-5.0 Lymph # [place] ([facility]) neutrophils # 4.2 10 1.5-8.5 Neutrophils # [place] ( [facility]) eos # 0.9 10 0.0-0.5 Above high normal Eos # [place] ([facility]) baso # 0.1 10 0.0-0.2 Baso # [place] ([facility]) mono # 0.6 10 0.0-0.8 [place] # [facility] ([facility]) ID Date Data Source [id number] 11/28/2020 04:17:07 PM EDT [facility] [place] NT INFORMATIONPatient MRN Name Date of Age Gend*PT [id number] Prakash Cannon 1985 35 years F ---PT Location Admission Date/Time Visit ID Attending Provider --- --- --- --- EPI ID CSN Admitting Provider [id number] ---Talk to patient about issues with molecular testing she would like to follow- upin person to discuss doing a right thyroid lobectomy. Name Value Range Interpretation Code Description Data Loreta rce(s) Supporting Document(s) ID Date Data Source [id number] 11/07/2020 12:26:23 PM EST [facility] [place] NT INFORMATIONPatient MRN Name Date of Age Gend*PT [id number] Prakash Cannon 1985 35 years F ---PT Location Admission Date/Time Visit ID Attending Provider --- --- --- --- EPI ID CSN Admitting Provider [id number] ---NEW THYROID DISEASE CONSULTReferred by: Dr Arthurment and Plan:Suspicious right thyroid lobe nodule. I gave her a few options: Surgeryincluding total thyroidectomy versus right thyroid lobectomy, repeat FNA withThyramir testing, or observation. She realizes the nodule suspicious based onher previous biopsy results and ultrasound appearance. I recommended eitherrepeat biopsy or surgery. She prefers another biopsy today. I did tell herhowever that if this nodule comes back highly suspicious for even if itcontinues to demonstrate up 50% chance of malignancy I would recommend at leasta right thyroid lobectomy. We will call her with the FNA results later thisweek.HPI:Prakash Cannon is a 35 years y.o. female, who I was asked to see inconsultation for evaluation right thyroid nodule. The lesion was found duringwork-up for throat pain. She had an ultrasound of her neck which demonstrated a1 cm right lobe nodule with suspicious features. She had an appropriate work-upincluding a right FNA with molecular testing. She feels like there is some milddysphagia symptoms and tenderness in her throat that been present for the pastseveral months. She has seen ENT with a negative work-up thus farFamily History of thyroid disease: NoHistory of Head and Neck radiation: NoHistory of Hashimotos: NoCurrent or History of thyroid medication: NoTSH: 1.18 Previous work up:Thyroid US: yesRight posterior lobe 0.9 x 1.1 cm noduleFine needle Aspiration: yesAUSAfirma testing suspicious 50% malignancy riskPast Medical History:Diagnosis Date Disease of thyroid gland History reviewed. No pertinent surgical history.AllergiesAllergen Reactions Sulfa Antibiotics AnaphylaxisFamily HistoryProblem Relation Age of Onset Lung disease SisterSocial HistoryTobacco Use Smoking status: Never Smoker Smokeless tobacco: Never UsedSubstance Use Topics Alcohol use: Not Currently Drug use: NeverNo current outpatient medications on file.No current facility-administered medications for this visit.Objective:BP 117/74 | Pulse 83 | Resp 18 | Ht 1.651 m (5' 5") | Wt 59 kg (130 lb) |BMI 21.63 kg/m No cervical or supraclavicular adenopathyNo cervical scars mildly tender right side of her neck no dominant noduleappreciated Lungs are clear.OFFICE US: No lateral neck adenopathy posterior right thyroid lobe noduleirregular with calcifications and firm on FNAJoséelizabeth Cannon was instructed to call our office with any questions orconcerns.I spent 20 min with patient and >50% of my time was spent counseling the patient Name Value Range Interpretation Code Description Data Loreta rce(s) Supporting Document(s) ID Date Data Source [id number] 11/07/2020 12:26:23 PM EST [facility] [place] NT INFORMATIONPatient MRN Name Date of Age Gend*PT [id number] Prakash Cannon 1985 35 years F ---PT Location Admission Date/Time Visit ID Attending Provider --- --- --- --- EPI ID CSN Admitting Provider [id number] ---FINE NEEDLE ASPIRATION USING ULTRASOUND GUIDANCENodule location: right posterior lobe 1 cm noduleIndications: Suspicious right posterior lobe nodule with calcifications firm onFNAPROCEDURE: The neck was prepped with alcohol foam. The skin was injected with 1%lidocaine, total 5 cc. Using ultrasound the lesion was confirmed, then underdirect visualization, a 25 gauge needle was passed into the nodule. 3 passesperformed. 1 pass saved for genetic thyramir testing.Complications: nonePt tolerated well. Name Value Range Interpretation Code Description Data Loreta rce(s) Supporting Document(s) ID Date Data Source [id number] 11/12/2020 11:45:13 AM EST [facility] [place], [place] [address]Tel# MISCELLANEOUS CYTOLOGY REPORTAccession Number: [id number] Specimen(s): A: Thyroid Nodule Aspirate Right FNAClinical Diagnosis and History: E04.1Gross DescriptionThyroid Nodule Aspirate Right FNA: Received in pink Cytolyt fixative with4 slides. 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 Occasional cellscontain nuclear grooves. Papillary thyroid carcinoma cannot be completelyexcluded.Processed and screened at [facility],Cytology, [address] [place] [address], [id number].As applicable, positive and negative controls for all immunohistochemicaland/or special stains were reviewed and considered appropriate. Reported: 11/12/2020Electronically Signed Out By [place] MDHenry J. [facility] PatholoCytotechnologist: April Holm CT([facility] code: E04.1CPT code: A: [id number] Name Value Range Interpretation Code Description Data Loreta rce(s) Supporting Document(s) ID Date Data Source [id number] 10/24/2020 09:39:00 AM EST [facility] 1 OrderSheet [facility] Emergency Department [address] [place] [address] Phone #: [phone] 10/24/2020 09:35 Patient: PRAKASH CANNON Sex: F : 1985 Age: 35yWEIGHT:69.3 kg (S) HEIGHT:65 inches (S) BMI:25.5ALLERGIES: Sulfa AntibioticsCHIEF COMPLAINT: pain, pain, lower extremities, in:, Rt, legs, Rt, LtDIAGNOSIS: Pain in lower limbLAB ORDERSOrder Description Priority Entered Acknowledged InitialedCBC w Diff STAT 09:49 10/24/2020 09:52 Murray Freeman Victoria Jennifer R.N. ;CMP STAT 09:49 10/24/2020 09:52 Murray Freeman Victoria Jennifer R.N. ;Magnesium STAT 09:49 10/24/2020 09:52 Murray Freeman Victoria Jennifer R.N. ;HCG Serum Quant STAT 09:49 10/24/2020 09:52 Murray Freeman Victoria Jennifer R.N. ;D-Dimer STAT 09:54 10/24/2020 10:07 Murray Vidal Victoria Blair ;DIAGNOSTIC STUDY ORDERSOrder Description Priority Entered Acknowledged InitialedMEDICATION/IV/DRIP/FLUID ORDERSOrder Description Priority Entered Acknowledged InitialedToradol IM 60 mg 09:49 10/24/2020 Ack'd: 09:52 10:17 Murray Vidal Victoria Putnam, Jennifer Blair ; R.N.GENERAL ORDERSOrder Description Priority Entered Acknowledged Initialed[Electronically signed by Ladi Santiago R.N. (11:08 10/24/2020)][Electronically signed by Gisele Goldstein (22:26 10/24/2020)] 2 OrderSheet [facility] Emergency Department [address] [place] [address] Phone #: oym- [phone] 10/24/2020 09:35 Patient: PRAKASH CANNON Sex: F : 1985 Age: 35y[Electronically locked by Ladi Santiago R.N. (11:08 10/24/2020)] Name Value Range Interpretation Code Description Data Loreta rce(s) Supporting Document(s) ID Date Data Source [id number] 10/24/2020 09:39:00 AM EST [facility] 1 Medication Reconciliation Report [facility] Emergency Department [address] [place] [address] Phone #: ext- [phone] 10/24/2020 09:35 Patient: PRAKASH CANNON Sex: F : 1985 Age: 35yWeight: 69.3 kgHeight/Length: 65 in.BMI: 25.5ALLERGIES: Sulfa AntibioticsThe patient's Home Medications are listed below:NONE.The source(s) of the original Home Medication information:patientThe following Medications were given to the patient in the Emergency Department:Toradol [IM] IM 60 mg, administered: 10:17 10/24/2020The following Medications were prescribed to the patient:ibuprofen 600 mg tablet Take 1 tablet four times a day as needed for pain for 10 days -- Dispense 40tablet. Refills: 0. Substitution permitted.Pharmacy - [id number] - [id number] [facility] ; [place], [place] [phone]. . -- Gisele Goldstein Name Value Range Interpretation Code Description Data Loreta rce(s) Supporting Document(s) ID Date Data Source [id number] 10/24/2020 09:39:00 AM EST [facility] 1 Medication Administration Record [facility] Emergency Department [address] [place] [address] Phone #: [phone] ext- [phone] 10/24/2020 09:35 Patient: PRAKASH CANNON Sex: F : 1985 Age: 35yWeight: 69.3 kgHeight/Length: 65 inBMI: 25.5ALLERGIES: Sulfa Antibiotics Date/Time Medication Administered Medication OrderedGiven TORADOL [IM] (KETOROLAC Toradol IM 60 mg10:17 10/24/2020 TROMETHAMINE)Mal Vidal, Dose: 60 mg IM Name Value Range Interpretation Code Description Data Loreta rce(s) Supporting Document(s) ID Date Data Source [id number] 10/24/2020 09:39:00 AM EST [facility] 1 General Instructions [facility] Emergency Department [address] [place] [address] Phone #: ext- [phone] 10/24/2020 09:35 Patient: PRAKASH CANNON Sex: F : 1985 Age: 35yAcute right lower leg pain and left lower leg pain.INSTRUCTIONS(the blood work were normal your d dimer is normal which excludes possibility of blood clot. take motrin forpain and follow up with your doctor in 2 to 3 days).Your Current Medications: .No home medication.Pres cription Medications:ibuprofen 600 mg tablet Take 1 tablet four times a day as needed for pain for 10 days -- Dispense 40tablet. Refills: 0. Substitution permitted.Pharmacy - [id number] - [id number] [facility] ; [place], [place] [phone]. .Follow-up:Follow up with your healthcare provider in three. Reason for referral: evaluation. Summary of care providedto patient via paper. ADDITIONAL INFORMATIONMyofascial Pain SyndromeYour pain is caused by a state of chronic muscle tension. This condition is called by various names:myofascial pain, fibrositis, and trigger point pain. This can also be due to mechanical stress, such asworking at a computer terminal for long periods or work that requires repetitive motions of the arms orhands. It can also be caused by emotional stress, such as problems on the job or in your personallife. Sometimes there is no obvious cause. The pain can happen in the area of the muscle spasm orat a site distant to it. For example, spasm of a neck muscle can cause headache. Spasm of themuscle near the shoulder blade can cause pain shooting down the arm.Home care Try to identify the factors that may be causing your problem and change them: o If you feel that emotional stress is a cause of your pain, learn methods to better deal 2 General Instructions [facility] Emergency Department [address] [place] [address] Phone #: ext- [phone] 10/24/2020 09:35 Patient: PRAKASH CANNON Sex: F : 1985 Age: 35y with the stress in your life. These may include regular exercise, muscle relaxation techniques, meditation, or simply taking time out for yourself. Talk with your healthcare provider or go to a local bookstore and review the many books and tapes about reducing stress. o If you feel that physical stress is a cause for your pain, try to change any poor work habits. You may use [id number] pain medicine to control pain, unless another medicine was prescribed. If you have chronic liver or kidney disease or ever had a stomach ulcer or gastrointestinal bleeding, talk with your healthcare provider before using these medicines. Apply an ice pack over the injured area for 15 to 20 minutes every 3 to 6 hours. You should do this for the first 24 to 48 hours. You can make an ice pack by filling a plastic bag that seals at the top with ice cubes and then wrapping it with a thin towel. Be careful not to injure your skin with the ice treatments. Ice should never be applied directly to skin. Continue the use of ice packs for relief of pain and swelling as needed. After 48 hours, apply heat (warm shower or warm bath) for 15 to 20 minutes several times a day, or alternate ice and heat. Massage the trigger point and stretch out the muscle. Trigger point massage can be done by applying heat to the area to warm and prepare the muscle. Then have someone apply steady thumb pressure directly on the knot in the muscle for 30 seconds. Release the pressure, then massage the surrounding muscle. Repeat the process, applying more pressure to the trigger point each time. Do this up to the limit of pain. With each treatment, the trigger point should become less tender and the pain should decrease. You can apply local pressure to trigger points in the back by lying on the floor with a tennis ball under the trigger point.Follow-up careFollow up with your healthcare provider, or as advised. You may need physical therapy if you don'trespond to home treatment alone.Call [phone] if you have: A trigger point in the chest muscles, pain that becomes more severe, lasts longer, or spreads into your shoulder, arm, or jaw Chest pain or discomfort Trouble breathing with or without chest discomfort Sweating, lightheadedness, nausea, or vomiting along with chest discomfort 3 General Instructions [facility] Emergency Department [address] [place] [address] Phone #: ext- [phone] 10/24/2020 09:35 Patient: PRAKASH CANNON Sex: F : 1985 Age: 35y Sudden weakness or numbness in the arm, leg, or face, especially if this happens on one side of the bodyWhen to seek medical adviceCall your healthcare provider right away if any of these occur: A week passes and you have not improved If your pain worsens, regardless of its location [phone] [employer]. [address] [place] [address]. All rights reserved. This information is not intended as asubstitute for professional medical care. Always follow your healthcare professional's instructions. You have been given the following additional information: Myofascial Pain Syndrome(Electronically signed by Gisele Goldstein 10/24/2020 22:26) Name Value Range Interpretation Code Description Data Loreta rce(s) Supporting Document(s) ID Date Data Source [id number] 10/24/2020 09:39:00 AM EST [facility] 1 Clinical Report - Nurses [facility] Emergency Department [address] [place] [address] Phone #: ext- [phone] 10/24/2020 09:35 Patient: PRAKASH CANNON Sex: F : 1985 Age: 35yTRIAGEArrived by private vehicle. Historian: patient. Accompanied by spouse (dropped off).Triage time: late entry - 09:34 10/24/2020. Acuity: LEVEL 4.Chief Complaint: RIGHT LOWER EXTREMITY PAIN. LEFT LOWER EXTREMITY PAIN.Alert. No acute distress.No injury occurred. Onset. (3 days ago). ( Pt states for the past 3 days she has had pain to bilateralknees anteriorly that radiate to bilateral feet. No known injury. Pt states "sometimes they go numb".).Treatment TIE PRESSER:None.SEPSIS SCREEN: SIRS SCREEN NEGATIVE. SEPSIS SCREEN NEGATIVE. No suspected or confirmedsigns of infection present. (09:41 10/24/2020). --09:41 10/24/20 Pricilla Freeman R.N.09:37 10/24/20. BP: 118/79. MAP: 92. HR: 77. RR: 18. O2 saturation: 100% on room air. Temp: 97.2 F(oral). Pain level now 10/10. --09:41 10/24/20 Pricilla Freeman R.N.Weight: 69.3 kg stated. Height/Length: 65 inches Per Patient. BMI: 25.5. --09:40 10/24/20 Pricilla Freeman R.N.MedicationsNone. --09:39 10/24/20 Pricilla Freeman R.N.AllergiesSulfa Antibiotics.(Anaphylaxis) --09:39 10/24/20 Pricilla Freeman R.N.PROBLEMS:Thyroid cancer. --09:39 10/24/20 Pricilla Freeman R.N.Asthma. --09:55 10/24/20 Gisele GoldsteinThe following entry was modified by Gisele Goldstein, 09:55 10/24/20Asthdc. --09:39 10/24/20 Pricilla Freeman R.N..Medication/allergy information source: the patient. --09:41 10/24/20 Pricilla Freeman R.N.ADDITIONAL SURGERIES:no known surgeries. 2 Clinical Report - Nurses [facility] Emergency Department [address] [place] [address] Phone #: ext- [phone] 10/24/2020 09:35 Patient: PRAKASH CANNON Sex: F : 1985 Age: 35y History PAST MEDICAL HX: Tetanus status: up-to-date. Immunizations: up-to-date and has received seasonal influenza. Last normal menstrual period was 1 week ago. SOCIAL HX: Former smoker. No alcohol use or drug use. The patient was offered HIV testing but declined. Patient education was provided. The patient was offered hepatitis C testing but declined. Patient education was provided. ( COVID screen negative). The patient has not traveled outside the [place] Infectious disease exposure: No infectious disease exposure. The patient was not exposed to Coronavirus. Mask placed on patient. Patient is not a known carrier of tuberculosis, hepatitis, HIV, MRSA or VRE. Patient is not a known carrier of CRE. SELF HARM ASSESSMENT: Self harm assessment was performed. The patient answered "no" to the question(s) "Do you have thoughts of harming or killing yourself?" and "Do you have a plan for harming or killing yourself?". ABUSE ASSESSMENT: Abuse assessment. The patient had positive responses to the question(s) "Do you feel safe in your home?". Abuse denied. No suspicion of abuse. No report of abuse. NUTRITIONAL RISK ASSESSMENT: The nutritional risk assessment revealed no deficiencies. FUNCTIONAL ASSESSMENT: Functional assessment: no impairments noted. LEARNING NEEDS ASSESSMENT: The learning needs assessment revealed no barriers. FALL RISK ASSESSMENT: Fall risk assessment completed. No risk factors identified. SKIN INTEGRITY ASSESSMENT: Skin integrity risk assessment completed. No skin integrity risk identified. --:41 10/24/20 Pricilla Freeman R.N. Interventions Identification band on patient. --:41 10/24/20 Pricilla Freeman R.N.PHYSICAL ASSESSMENTAmbulatory to room.GENERAL / NEURO / PSYCH: Oriented X 4. Alert. Appears in no acute distress.EXTREMITIES: Extremity pulses are within normal limits. Extremities exhibit normal ROM.Neuro-vascular status intact to the extremity. No lower extremity edema. Right knee: tenderness(radiates to right foot). No laceration, abrasion, puncture wound, foreign body or deformity. No limitation inROM. Right leg: tenderness of the anterior aspect of mid leg. No erythema, swelling, ecchymosis,laceration or abrasion. No puncture wound, foreign body or deformity. Right ankle: tenderness. Noerythema, swelling, ecchymosis, laceration or abrasion. No puncture wound, foreign body or deformity.Right foot: tenderness of the proximal and distal aspect of the mid foot. No erythema, swelling,ecchymosis, laceration or abrasion. No puncture wound or foreign body. Left knee: tenderness. Noerythema, swelling, ecchymosis, laceration or abrasion. No puncture wound, foreign body or deformity.Left leg: tenderness of the anterior aspect of leg. No erythema, swelling, ecchymosis, laceration or 3 Clinical Report - Nurses [facility] Emergency Department [address] [place] [address] Phone #: ext- [phone] 10/24/2020 09:35 [id number] Sex[facility] F : 1985 Age: 35y abrasion. No puncture wound, foreign body or deformity. Left ankle: tenderness. No erythema, swelling, ecchymosis, laceration or abrasion. No puncture wound, foreign body or deformity. Left foot: tenderness. No erythema, swelling, ecchymosis, laceration or abrasion. No puncture wound, foreign body or deformity. SKIN: Skin intact. Skin is warm and dry. --09:44 10/24/20 Pricilla Freeman R.N.NURSING PROGRESS NOTESPatient gowned. Reassurance given. Three patient identifiers checked. Call light placed in reach. Siderails up x 2. Bed placed in lowest position. Brakes of bed on. Patient ready for evaluation- ED physiciannotified. --09:41 10/24/20 Pricilla Freeman R.N. 10:17 10/24/2020 Toradol (Ketorolac Tromethamine) IM 60 mg given. Given in the left deltoid. Allergies verified and confirmed 5 rights. Information reviewed with patient including reason for taking this medication, signs of allergic reaction and precautions. Verbalizes understanding. (Pt denies prior to administration). --10:17 10/24/20 [place], Mal Patient gowned. Reassurance gi yuliana. Rounding: Proximity of possessions / care items: call light within easy reach. Set expectations: advised patient of rounding protocol timing and asked if they needed anything else at this time. Three patient identifiers checked. Call light placed in reach. Side rails up x 2. Bed placed in lowest position. Brakes of bed on. Patient waiting for lab results. --10:20 10/24/20 Ladi Santiago R.N. Care transferred and report given (Jerardo Santiago RN). --10:33 10/24/20 Pricilla Freeman R.N. Reassessment acuity: LEVEL 4. Rounding: Pain: assessed pain level. Position: states comfortable. Reassessment after medication administered. Pain still present but improving. Overall patient status is improved- she states feels better. --10:53 10/24/20 Pricilla Freeman R.N. 10:52 10/24/20. Pain level now 02/22. --10:53 10/24/20 Pricilla Freeman R.N.DISPOSITION / DISCHARGE 11:03 10/24/20. BP: 108/79. HR: 64. RR: 18. O2 saturation: 100%. Temp: 98.4 F. Pain level now 02/22. --11:03 10/24/20 [facility] Tech1 11:04 10/24/20. Departure time: 11:04 10/24/2020. Condition at departure: improved. No learning barriers present. Discharge instructions provided and reviewed with the patient. Reviewed medication(s) side effects, precautions, dosing and course information. Prescription(s) sent electronically to pharmacy (ibuprofen). Reviewed referral to a primary care physician for followup. Patient verbalized understanding. Written instructions provided in Tuvaluan. The patient was discharged by the physician. She was discharged home and unaccompanied at time of discharge. She left ambulatory and via private vehicle. Patient driving. --11:04 10/24/20 Ladi Santiago R.N. 4 Clinical Report - Nurses [facility] Emergency Department [address] [place] [address] Phone #: ext- [phone] 10/24/2020 09:35 Patient: PRAKASH CANNON Sex: F : 1985 Age: 35yLocked/Released at 10/24/2020 11:08 by Ladi Santiago R.N. Name Value Range Interpretation Code Description Data Loreta rce(s) Supporting Document(s) ID Date Data Source [id number] 10/24/2020 09:39:00 AM EST [facility] 1 Clinical Report - Physicians/Mid Levels [facility] Emergency Department [address] [place] [address] Phone #: ext- [phone] 10/24/2020 09:35 Patient: PRAKASH CANNON Sex: F : 1985 Age: 35y Time Seen: 09:41 10/24/2020; initial patient contact, initial documentation. Arrived- By private vehicle. Historian- patient. Disposition decision: 10:55 10/24/2020.HISTORY OF PRESENT ILLNESS Chief Complaint: LOWER EXTREMITY PAIN and ; PAIN IN THE RIGHT LOWER EXTREMITY and RIGHT LEG and LEFT LEG. This started 3 days ago and is still present and worsening. It was gradual in onset and has been constant. Severity is described as being severe. The quality is noted to be sharp and "pain". It is described as radiating (none). Not worsened by anything and relieved by anything. The patient has not had redness. No swelling, bladder dysfunction, bowel dysfunction, sensory loss or motor loss. No difficulty walking. ( patient has thyroid cancer and has an appointment with the surgeon today but she states that the pain became more severe. she did not take any tylenol or motrin for pain. denies injury. denies selling or redness). Patient denies an injury.REVIEW OF SYSTEMSNo cough, chest pain, difficulty breathing, fever or skin rash. No enlarg ed lymph nodes, neck pain, backpain, headache or blurred vision. No sore throat, abdominal pain, vomiting, diarrhea or black stools. Nodifficulty with urination or bloody stools. All other systems reviewed and are negative.PAST HISTORYSee nurses notes. Problems: Anxiety Reaction. Cellulitis. Chronic Venous Insufficiency. Thyroid cancer. Additional Surgeries: no known surgeries. Medications: None. Allergies: Sulfa Antibiotics.(Anaphylaxis).SOCIAL HISTORYNever smoker. No alcohol use or drug use. 2 Clinical Report - Physicians/Mid Levels [facility] Emergency Department [address] [place] [address] Phone #: ext- [phone] 10/24/2020 09:35 Patient: PRAKASH CANNON Sex: F : 1985 Age: 35yADDITIONAL NOTESThe nursing notes have been reviewed.PHYSICAL EXAMVital Signs: 10/24/2020 09:37 BP: 118/79. MAP: 92. HR: 77. RR: 18. O2 saturation: 100% on room air.Temp: 97.2 F. Oxygen saturation normal.Appearance: Alert. Oriented X3. No acute distress.Eyes: Eyes normal inspection.Neck: Normal inspection. Thyromegaly. Neck supple. No pain with movement of head/neck. Nomeningeal signs, JVD, carotid bruit or lymphadenopathy.CVS: Normal heart rate and rhythm. Heart sounds normal.Respiratory: No respiratory distress. Painless inspiration. Breath sounds normal.Abdomen: Soft and nontender. No organomegaly.Back: Normal inspection. No tenderness. ROM normal.Skin: Skin intact. Skin warm and dry. Normal skin color. Normal skin turgor.Extremities: Lower extremities exhibit normal ROM. No lower extremity edema. No signs of infectioninvolving the lower extremities. No calf tenderness. Extremities otherwise negative.Gait: No limping gait.Neuro, Vascular and Tendons: No pulse deficit present. Lower extremity capillary refill not prolonged.Neuro: Oriented X 3.LABS, X-RAYS, AND EKGLaboratory Tests: D-Dimer: (JODIE: 10/24/2020 09:57) ( [facility] 10/24/2020 10:21) Final results Test Result Flag Units (Reference) D-DIMER QUANT 0.45 ug/mL (0.27 - 0.50) CBC w Diff: (JODIE: 10/24/2020 09:57) ( [facility] 10/24/2020 10:07) Final results Test Result Flag Units (Reference) CBC W/AUTOMATED DIFF COMPLETE BLOOD COUNT WBC 6.8 10/uL (4.2 - 11.0) RBC 4.93 10/uL (4.20 - 5.40) HEMOGLOBIN 14.5 g/dL (12.0 - 16.0) HEMATOCRIT 41.4 % (37.0 - 47.0) MCV 84.0 fL (81.0 - 101) MCH 29.4 pg (27.0 - 34.0) MCHC 35.0 g/dL (31.0 - 36.0) RDW 12.2 % (11.5 - 14.5) PLATELETS 261 10/uL (150 - 450) MPV 8.6 fL (7.4 - 10.4) NEUT 55.4 % (37.0 - 80.0) LYMPH 26.8 % (25.0 - 40.0) MONO 5.8 % (3.0 - 8.0) EOS 10.7 H % (0.0 - 7.0) BASO 1.2 % (0.0 - 2.5) %IG 0.1 H % (0.0 - 0.0) %NRBC 0.0 % (0.0 - 0.0) #NEUT 3.74 10/uL (2.00 - 6.90) #LYMPH 1.81 10/uL (0.60 - 3.40) 3 Clinical Report - Physicians/Mid Levels [facility] Emergency Department [address] [place] [address] Phone #: ext- [phone] 10/24/2020 09:35 Patient: PRAKASH CANNON Sex: F : 1985 Age: 35y #MONO 0.39 10/uL (0.00 - 0.90) #EOS 0.72 H 10/uL (0.00 - 0.70) #BASO 0.08 10/uL (0.00 - 0.20) #IG 0.01 10/uL (0.00 - 0.10) #NRBC 0.00 10/uL (0.00 - 0.00) MANUAL DIFF NOT INDICATED RBC MORPH NOT INDICATED CMP: (JODIE: 10/24/2020 09:57) ( MsgRcvd 10/24/2020 10:43) Final results Test Result Flag Units (Reference) COMPREHENSIVE METABOLIC PANEL COMPREHENSIVE METABOLIC PANEL SODIUM 140 mEq/L (134 - 153) POTASSIUM 3.9 mEq/L (3.6 - 5.0) CHLORIDE 107 mEq/L (98 - 107) CO2 25 MEQ/L (22 - 30) GLUCOSE 88 MG/DL (70 - 99) BUN 11 MG/DL (7 - 21) CREATININE 0.7 MG/DL (0.7 - 1.5) BUN/CREAT 16 (8 - 27) TOTAL PROTEIN 7.3 G/DL (6.3 - 8.2) ALBUMIN 4.3 G/DL (3.9 - 5.0) GLOBULIN 3.0 GM/DL (2.4 - 3.2) A/G RATIO 1.4 (0.8 - 2.0) CALCIUM 9.3 MG/DL (8.4 - 10.2) TOTAL BILI 0.7 MG/DL (0.2 - 1.3) ALKALINE PHOS 58 U/L (38 - 126) SGOT/AST 13 U/L (5 - 40) SGPT/ALT 5 L U/L (7 - 56) ANION GAP 8.0 mmol/L (8.0 - 16.0) AGE 35 yrs NON-AA GFR >60 mL/min AFR AMER GFR > 60 mL/min Male GFR Interprentation 20-49 yrs >60 mL/min Normal 50-59 yrs >56 mL/min Normal 60-69 yrs >49 mL/min Normal 70-79yrs >42 mL/min Normal 80 and above >35 mL/min Normal Female GFR Interpretation 20-39 yrs >60 mL/min Normal 40-49 yrs >58 mL/min Normal 50-59 yrs >51 mL/min Normal 60-69 yrs >45 mL/min Normal 70-79 yrs >39 mL/min Normal 80 and above >32 mL/min Normal Magnesium: (JODIE: 10/24/2020 09:57) ( MsgRcvd 10/24/2020 10:41) Final results Test Result Flag Units (Reference) MAGNESIUM 1.9 MG/DL (1.7 - 2.2) Beta-HCG, Quant Serum: (JODIE: 10/24/2020 09:57) ( MsgRcvd 10/24/2020 10:43) Final results Test Result Flag Units (Reference) HCG QUANT <0.5 mIU/mL Interpretation: Less than 5 mU/mL: Negative 6-10 mU/mL: Borderline (suggest repeat in 48 hours) >10: Positive Approx HCG range (mU/mL) Weeks post LMP 5.4-708 mU/mL 3-4 Weeks 217-67598 mU/mL 5-6 Weeks 4059-199943 mU/mL 7-8 Weeks [id number] mU/mL 9-10 Weeks 71181-51646 mU/mL 12-14 Weeks 41087-87567 mU/mL 15-16 Weeks 8240-09458 mU/mL 17-18 Weeks. 4 Clinical Report - Physicians/Mid Levels [facility] Emergency Department [address] [place] [address] Phone #: ext- [phone] 10/24/2020 09:35 Patient: PRAKASH CANNON Sex: F : 1985 Age: 35yPROGRESS AND PROCEDURESCourse of Care: 10:52 10/24/20. Blood work normal including d dimer. calcium and magnesium. 10:57 10/24/20. patient feels a lot better after toradol. Patient counseled in person regarding the patient's stable condition, test results, diagnosis and need for follow-up. Patient agrees with plan of care. 10:55. Disposition: Discharged home in good and improved condition (10:56). Condition: good and stable. Discharge decision based on the following: patient's condition is stable; patient is ambulatory; patient's exam is stable; patient's exam is improved; no abnormal test results; stable condition on multiple repeat evaluations; social support is adequate; transportation is available; follow-up is available; clinical impression is consistent with outpatient treatment.CLINICAL IMPRESSION Acute right lower leg pain and left lower leg pain.INSTRUCTIONS (the blood work were normal your d dimer is normal which excludes possibility of blood clot. take motrin for pain and follow up with your doctor in 2 to 3 days). Your Current Medications: . No home medication. Prescription Medications: ibuprofen 600 mg tablet Take 1 tablet four times a day as needed for pain for 10 days -- Dispense 40 tablet. Refills: 0. Substitution permitted. Pharmacy - [id number] [id number] [facility] ; [place], [place] [phone]. FaxNumber: . Follow-up: Follow up with your healthcare provider in three. Reason for referral: evaluation. Summary of care provided to patient via paper.(Electronically signed by Gisele Goldstein 10/24/2020 22:26) 5Clinical Report - Physicians/Mid Levels [facility] Emergency Department [address] [place] [address] Phone #: [phone] 10/24/2020 09:35 Patient: PRAKASH CANNON Sex: F : 1985 Age: 35y Name Value Range Interpretation Code Description Data Loreta rce(s) Supporting Document(s) ID Date Data Source [id number] 10/24/2020 10:43:00 AM EST [facility] Name Value Range Interpretation Code Description Data Loreta rce(s) Supporting Document(s) Choriogonadotropin.intact [Units/volume] in Serum or Plasma <0.5 mIU/ mL [facility] Interpr etation: Less than 5 mU/mL: Negative 6-10 mU/mL: Borderline (suggest repeat in 48 hours) >10: Positive Approx HCG range (mU/mL) Weeks post LMP 5.4-708 mU/mL 3-4 Weeks 217-67364 mU/mL 5-6 Weeks 4059-859709 mU/mL 7-8 Weeks 40519-325808 mU/mL 9-10 Weeks 87093-82299 mU/mL 12-14 Weeks 35423-77599 mU/mL 15-16 Weeks 8240- 16084 mU/mL 17-18 Weeks ID Date Data Source [id number] 10/24/2020 10:42:00 AM EST [facility] Name Value Range Interpretation Code Description Data Loreta rce(s) Supporting Document(s) COMPREHENSIVE METABOLIC PANEL [facility] COMPREHENSIVE METABOLIC PANEL Sodium [Moles/volume] in Serum or Plasma 140 mEq/L 134 - 153 [facility] Potassium [Moles/volume] in Serum or Plasma 3.9 mEq/L 3.6 - 5.0 [facility] Chloride [Moles/volume] in Serum or Plasma 107 mEq/L 98 - 107 [facility] Carbon dioxide, total [Moles/volume] in Serum or Plasma 25 MEQ/L 22 - 30 [facility] Glucose [Mass/volume] in Serum or Plasma 88 MG/DL 70 - 99 [facility] BUN 11 MG/DL 7 - 21 [facility] Creatinine [Mass/volume] in Serum or Plasma 0.7 MG/DL 0.7 - 1.5 [facility] BUN/CREAT 16 8 - 27 [facility] al Protein [Mass/volume] in Serum or Plasma 7.3 G/DL 6.3 - 8.2 [facility] Albumin [Mass/volume] in Serum or Plasma 4.3 G/DL 3.9 - 5.0 [facility] Globulin [Mass/volume] in Serum by calculation 3.0 GM/DL 2.4 - 3.2 [facility] A/G RATIO 1.4 0.8 - 2.0 [facility] Calcium [Mass/volume] in Serum or Plasma 9.3 MG/DL 8.4 - 10.2 [facility] Bilirubin.total [Mass/volume] in Serum or Plasma 0.7 MG/DL 0.2 - 1.3 [facility] Alkaline phosphatase [Enzymatic activity/volume] in Serum or Plasma 58 U/L 38 - 126 [facility] Aspartate aminotransferase [Enzymatic activity/volume] in Serum or Plasma 13 U/L 5 - 40 [facility] Alanine aminotransferase [Enzymatic activity/volume] in Seru m or Plasma 5 U/L 7 - 56 L [facility] Anion gap 3 in Serum or Plasma 8.0 mmol/L 8.0 - 16.0 [facility] AGE 35 yrs [facility] NON-AA GFR >60 mL/min [facility] AFR AMER GFR >60 mL/min [facility] Male GFR In terprentation 20-49 yrs >60 mL/min Normal 50-59 yrs >56 mL/min Normal 60-69 yrs >49 mL/min Normal 70-79yrs >42 mL/min Normal 80 and above >35 mL/min Normal Female GFR Interpretation 20-39 yrs >60 mL/min Normal 40-49 yrs >58 mL/min Normal 50-59 yrs >51 mL/min Normal 60-69 yrs >45 mL/min Normal 70-79 yrs >39 mL/min Normal 80 and above >32 mL/min Normal ID Date Data Source [id number] 10/24/2020 10:41:00 AM [facility] Name Value Range Interpretation Code Description Data Loreta rce(s) Supporting Document(s) Magnesium [Mass/volume] in Serum or Plasma 1.9 MG/DL 1.7 - 2.2 [facility] ID Date Data Source [id number] 10/24/2020 10:20:00 AM [facility] Name Value Range Interpretation Code Description Data Loreta rce(s) Supporting Document(s) Fibrin D-dimer FEU [Mass/volume] in Platelet poor plasma 0.45 ug /mL 0.27 - 0.50 [facility] ID Date Data Source [id number] 10/24/2020 10:06:[address] [facility] Value Range Interpretation Code Description Data Loreta rce(s) Supporting Document(s) CBC W/AUTOMATED DIFF [facility] COMPLETE BLOOD COUNT Leukocytes [#/volume] in Blood by Automated count 6.8 10^3/uL 4.2 - 1 1.0 [facility] Erythrocytes [#/volume] in Blood by Automated count 4.93 10^6/uL 4. 20 - 5.40 [facility] Hemoglobin [Mass/volume] in Blood 14.5 g/dL 12.0 - 16.0 [facility] Hematocrit [Volume Fraction] of Blood by Automated count 41.4 % 3 7.0 - 47.0 [facility] Erythrocyte mean corpuscular volume [Entitic volume] by Auto mated count 84.0 fL 81.0 - 101 [facility] Erythrocyte mean corpuscular hemoglobin [Entitic mass] by Automated count 29.4 pg 27.0 - 34.0 [facility] Erythrocyte mean corpuscular hemoglobin concentration [Mass/volume] by Automated count 35.0 g/dL 31.0 - 36.0 [facility] Erythrocyte distribution width [Ratio] by Automated count 12.2 % 11.5 - 14.5 [facility] Platelets [#/volume] in Blood by Automated count 261 10^3/uL 150 - 45 0 [facility] Platelet mean volume [Entitic volume] in Blood by Automated count 8.6 fL 7.4 - 10.4 [facility] Neutrophils/100 leukocytes in Blood by Automated count 55.4 % 37. 0 - 80.0 [facility] Lymphocytes/100 leukocytes in Blood by Manual count 26.8 % 25.0 - 40.0 [facility] Monocytes/100 leukocytes in Blood by Automated count 5.8 % 3.0 - 8.0 [facility] Eosinophils/100 leukocytes in Blood by Automated count 10.7 % 0.0 - 7.0 H [facility] Basophils/100 leukocytes in Blood by Automated count 1.2 % 0.0 - 2.5 [facility] %IG 0.1 % 0.0 - 0.0 H [facility] al %NRBC 0.0 % 0.0 - 0.0 [facility] al Neutrophils [#/volume] in Blood by Automated count 3.74 10^3/uL 2.00 - 6.90 [facility] Lymphocytes [#/volume] in Blood by Automated count 1.81 10^3/uL 0.60 - 3.40 [facility] Monocytes [#/volume] in Blood by Automated count 0.39 10^3/uL 0.00 - 0.90 [facility] Eosinophils [#/volume] in Blood by Automated count 0.72 10^3/uL 0.00 - 0.70 H [facility] Basophils [#/volume] in Blood by Automated count 0.08 10^3/uL 0.00 - 0.20 [facility] #IG 0.01 10^3/uL 0.00 - 0.10 [facility] #NRBC 0.00 10^3/uL 0.00 - 0.00 [facility] MANUAL DIFF NOT INDICATED [facility] RBC MORPH NOT INDICATED [facility] ID Date Data Source [id number] 09/12/2020 09:45:00 AM EST [facility] ([facility]) Name Value Range Interpretation Code Description Data Loreta rce(s) Supporting Document(s) fine needle asp cytolyt prep Fine Ne edle Asp Cytolyt Prep [facility] ([facility]) ID Date Data Source [id number] 09/12/2020 09:45:00 AM [facility]) Name Value Range Interpretation Code Description Data Loreta rce(s) Supporting Document(s) fine needle asp cytolyt prep Fine Ne edle Asp Cytolyt Prep [place] ([facility]) ID Date Data Source [id number] 09/12/2020 09:45:00 AM [facility]) Name Value Range Interpretation Code Description Data Loreta rce(s) Supporting Document(s) fine needle asp cytolyt prep Fine Ne edle Asp Cytolyt Prep [place] ([facility]) ID Date Data Source [id number] 09/12/2020 09:45:00 AM EST [place] ([facility]) Name Value Range Interpretation Code Description Data Loreta rce(s) Supporting Document(s) fine needle asp cytolyt prep Fine Ne edle Asp Cytolyt Prep [place] ([facility]) ID Date Data Source [id number] 09/12/2020 09:45:00 AM EST [facility]) Name Value Range Interpretation Code Description Data Loreta rce(s) Supporting Document(s) fine needle asp cytolyt prep Fine Ne edle Asp Cytolyt Prep [facility] ([facility]) ID Date Data Source [id number] 09/12/2020 09:45:00 AM EST [facility] ([facility]) Name Value Range Interpretation Code Description Data Loreta rce(s) Supporting Document(s) fine needle asp cytolyt prep Fine Ne edle Asp Cytolyt Prep [facility] ([facility]) ID Date Data Source [id number] 09/12/2020 09:45:00 AM EST [facility] ([facility]) Name Value Range Interpretation Code Description Data Loreta rce(s) Supporting Document(s) fine needle asp cytolyt prep Fine Ne edle Asp Cytolyt Prep [place] ([facility]) ID Date Data Source [id number] 09/12/2020 09:45:00 AM EST [facility] ([facility]) Name Value Range Interpretation Code Description Data Loreta rce(s) Supporting Document(s) fine needle asp cytolyt prep Fine Ne edle Asp Cytolyt Prep [facility] ([facility]) ID Date Data Source [id number] 09/12/2020 09:45:00 AM EST [facility] ([facility]) Name Value Range Interpretation Code Description Data Loreta rce(s) Supporting Document(s) fine needle asp cytolyt prep Fine Ne edle Asp Cytolyt Prep [facility] ([facility]) ID Date Data Source [id number] 09/12/2020 09:45:00 AM EST [facility] ([facility]) Name Value Range Interpretation Code Description Data Loreta rce(s) Supporting Document(s) fine needle asp cytolyt prep Fine Ne edle Asp Cytolyt Prep [facility] ([facility]) ID Date Data Source [id number] 09/12/2020 09:45:00 AM EST [facility] ([facility]) Name Value Range Interpretation Code Description Data Loreta rce(s) Supporting Document(s) fine needle asp cytolyt prep Fine Ne edle Asp Cytolyt Prep [facility] ([facility]) ID Date Data Source [id number] 09/12/2020 09:45:00 AM EST [facility] ([facility] ) Name Value Range Interpretation Code Description Data Loreta rce(s) Supporting Document(s) Microscopic observation [Identifier] in Unspecified specimen by Non- gynecological cytology method Laboratory test result [facility] ([facility] ) SPECIMEN: FNA right thyroid n odule Specimen received in cytolyt SPECIMEN ADEQUACY: Satisfactory for evaluation CATEGORIZATION: Atypia of Undetermined Significance DESCRIPTIONS: Specimen consists of groups of follicular cells, some presenting with irregular nuclear borders, nuclear cleaves, and rare nuclear pseudoinclusion. See comment COMMENTS: Atypical cytology. The case was also sent to cytopathology department at [facility] for consultation, they believe although the findings are atypical, they are not conclusive for a neoplastic process. Follow up is recommended as clinically indicated. See report [id number] from [facility]. 09/25/[id number] Signed ANIYAH FAUSITN (ASCP) 09/13/2020 1329 (Prelim) Signed Gregg De La Fuente MD 09/25/2020935 ID Date Data Source [id number] 09/12/2020 09:45:00 AM EST [facility] ([facility]) Name Value Range Interpretation Code Description Data Loreta rce(s) Supporting Document(s) fine needle asp cytolyt prep Fine Ne edle Asp Cytolyt Prep [facility] ([facility]) ID Date Data Source [id number] 09/06/2020 12:30:00 [facility] Name Value Range Interpretation Code Description Data Loreta rce(s) Supporting Document(s) thyroid stimulating hormone 0.874 uIU/mL 0.358-3.740 Thyroid Stimulating Hormone [place] ([facility]) free T4 1.11 NG/dL 0.76-1.46 Free T4 [facility] ([facility]) ID Date Data Source [id number] 09/06/2020 12:30:00 PM EST [facility] ([facility]) Name Value Range Interpretation Code Description Data Loreta rce(s) Supporting Document(s) thyroid stimulating hormone 0.874 uIU/mL 0.358-3.740 Thyroid Stimulating Hormone [facility] ([facility]) free T4 1.11 NG/dL 0.76-1.46 Free T4 [facility] ([facility]) ID Date Data Source [id number] 09/06/2020 12:30:00 PM EST [facility] ([facility]) Name Value Range Interpretation Code Description Data Loreta rce(s) Supporting Document(s) thyroid stimulating hormone 0.874 uIU/mL 0.358-3.740 Thyroid Stimulating Hormone [facility] ([facility]) free T4 1.11 NG/dL 0.76-1.46 Free T4 [facility] ([facility]) ID Date Data Source [id number] 09/06/2020 12:30:00 PM EST [facility] ([facility]) Name Value Range Interpretation Code Description Data Loreta rce(s) Supporting Document(s) thyroid stimulating hormone 0.874 uIU/mL 0.358-3.740 Thyroid Stimulating Hormone [facility] ([facility]) free T4 1.11 NG/dL 0.76-1.46 Free T4 [facility] ([facility]) ID Date Data Source [id number] 09/06/2020 12:30:00 PM EST [facility] ([facility]) Name Value Range Interpretation Code Description Data Loreta rce(s) Supporting Document(s) thyroid stimulating hormone 0.874 uIU/mL 0.358-3.740 Thyroid Stimulating Hormone [facility] ([facility]) free T4 1.11 NG/dL 0.76-1.46 Free T4 [facility] ([facility]) ID Date Data Source [id number] 09/06/2020 12:30:00 PM EST [facility] ([facility]) Name Value Range Interpretation Code Description Data Loreta rce(s) Supporting Document(s) free T4 1.11 NG/dL 0.76-1.46 Free T4 [facility] ([facility]) thyroid stimulating hormone 0.874 uIU/mL 0.358-3.740 Thyroid Stimulating Hormone [facility] ([facility]) ID Date Data Source [id number] 09/06/2020 12:30:00 PM EST [facility] ([facility]) Name Value Range Interpretation Code Description Data Loreta rce(s) Supporting Document(s) thyroid stimulating hormone 0.874 uIU/mL 0.358-3.740 Thyroid Stimulating Hormone [facility] ([facility]) free T4 1.11 NG/dL 0.76-1.46 Free T4 [facility] ([facility]) ID Date Data Source [id number] 09/06/2020 12:30:00 PM EST [facility] ([facility]) Name Value Range Interpretation Code Description Data Loreta rce(s) Supporting Document(s) thyroid stimulating hormone 0.874 uIU/mL 0.358-3.740 Thyroid Stimulating Hormone [facility] ([facility]) free T4 1.11 NG/dL 0.76-1.46 Free T4 [facility] ([facility]) ID Date Data Source [id number] 09/06/2020 12:30:00 PM EST [facility] ([facility]) Name Value Range Interpretation Code Description Data Loreta rce(s) Supporting Document(s) thyroid stimulating hormone 0.874 uIU/mL 0.358-3.740 Thyroid Stimulating Hormone [facility] ([facility]) free T4 1.11 NG/dL 0.76-1.46 Free T4 [facility] ([facility]) ID Date Data Source [id number] 09/06/2020 12:30:00 PM EST [facility] ([facility]) Name Value Range Interpretation Code Description Data Loreta rce(s) Supporting Document(s) thyroid stimulating hormone 0.874 uIU/mL 0.358-3.740 Thyroid Stimulating Hormone [facility] ([facility]) free T4 1.11 NG/dL 0.76-1.46 Free T4 [facility] ([facility]) ID Date Data Source [id number] 09/06/2020 12:30:00 PM EST [facility] ([facility]) Name Value Range Interpretation Code Description Data Loreta rce(s) Supporting Document(s) thyroid stimulating hormone 0.874 uIU/mL 0.358-3.740 Thyroid Stimulating Hormone [facility] ([facility]) free T4 1.11 NG/dL 0.76-1.46 Free T4 [facility] ([facility]) ID Date Data Source [id number] 09/06/2020 12:30:00 PM EST [facility] ([facility]) Name Value Range Interpretation Code Description Data Loreta rce(s) Supporting Document(s) Free T4 1.11 ng/dL 0.76-1.46 [facility] ([facility]) Thyroid Stimulating Hormone 0.874 uIU/ML 0.358-3.740 [facility] ([facility]) ID Date Data Source [id number] 09/06/2020 12:30:00 PM EST [facility] ([facility]) Name Value Range Interpretation Code Description Data Loreta rce(s) Supporting Document(s) free T4 1.11 NG/dL 0.76-1.46 Free T4 [facility] ([facility]) thyroid stimulating hormone 0.874 uIU/mL 0.358-3.740 Thyroid Stimulating Hormone [facility] ([facility]) ID Date Data Source [id number] 08/04/2020 12:00:00 AM EST [facility] Name Value Range Interpretation Code Description Data Loreta rce(s) Supporting Document(s) SARS coronavirus 2 RNA [Presence] in Res piratory specimen by TRAV with probe detection [facility] This lab was ordered by Faustina Choi and reported by [employer]. ID Date Data Source PAP REQUEST FOR SERVICE 07/11/2020 12:00:00 AM EDT [email or web address] ([facility] Name Value Range Interpretation Code Description Data Loreta rce(s) Supporting Document(s) PAP REQUEST FOR SERVICE eCW1 ( [facility]) Procedure Social History Code Duration Value Status Description Data Source(s ) Smoking 06/19/2021 12:00:00 AM EDT Never Smoked Cigarettes com pleted Never Smoked Cigarettes [facility] ([facility]) Alcohol intake 01/25/2021 12:00:00 AM EDT Ex-drinker (finding) comp leted Ex- drinker (finding) [facility] Alcohol intake 01/24/2021 12:00:00 AM EDT Ex-drinker (finding) comp leted Ex- drinker (finding) [facility] Alcohol intake 01/19/2021 12:00:00 AM EDT Ex-drinker (finding) comp leted Ex- drinker (finding) [facility] Tobacco use and exposure 11/07/2020 12:00:00 AM EST Never used co mpleted Never used [facility] Smoking 11/07/2020 12:00:00 AM EST Never smoker completed Never s moker [facility] Alcohol intake 11/07/2020 12:00:00 AM EST Not Currently completed [facility] Smoking 11/07/2020 12:00:00 AM EST Never smoker completed Never s moker [facility] Smoking 07/11/2020 12:00:00 AM EDT Never Smoker completed Never S moker [email or web address] ([facility]) Vital Signs ID Date Data Source [id number] Name Value Range Interpretation Code Description Data Source(s) Heart rate 72 /min 72 /min [facility] ([facility]) Body height 63 [in_i] 63 [in_i] [facility] ([facility]) 5'3" Body weight 161.12 [lb_av] 161.12 [lb_av] [facility] ([facility]) Body mass index (BMI) [Ratio] 28.5 kg/m2 28.5 k g/m2 [facility] ([facility]) Oxygen saturation in Arterial blood by Pulse oximetry 99 % 99 % [facility] ([facility]) Systolic blood pressure 126 mm[Hg] 126 mm[Hg] [facility] ([facility]) Diastolic blood pressure 84 mm[Hg] 84 mm[Hg] [facility] ([facility]) Body mass index (BMI) [Ratio] 27.7 kg/m2 27.7 k g/m2 [facility] ([facility]) Systolic blood pressure 114 mm[Hg] 114 mm[Hg] [facility] ([facility]) Diastolic blood pressure 64 mm[Hg] 64 mm[Hg] [facility] ([facility]) Heart rate 66 /min 66 /min [facility] ([facility]) Body height 63 [in_i] 63 [in_i] [facility] ([facility]) 5'3" Body weight 156.31 [lb_av] 156.31 [lb_av] [facility] ([facility]) Oxygen saturation in Arterial blood by Pulse oximetry 97 % 97 % [facility] ([facility]) Body height 65 [in_i] 65 [in_i] [facility] ([facility]) Body height 65 [in_i] 65 [in_i] [facility] ([facility]) Body height 65 [in_i] 65 [in_i] [facility] ([facility]) Body height 65 [in_i] 65 [in_i] [facility] ([facility]) Body height 65 [in_i] 65 [in_i] [facility] ([facility]) Body height 65 [in_i] 65 [in_i] [facility] ([facility]) Body height 65 [in_i] 65 [in_i] [facility] ([facility]) Systolic blood pressure 93 mm[Hg] 93 mm[Hg] [facility] Diastolic blood pressure 58 mm[Hg] 58 mm[Hg] [facility] Heart rate 57 /min 57 /min [facility] Respiratory rate 16 /min 16 /min [facility] Body temperature 36.39 Emi 36.39 Emi [facility] Oxygen saturation in Arterial blood by Pulse oximetry 99 % 99 % [facility] Body height 165.1 cm 165.1 cm [facility] Body weight 65.227 kg 65.227 kg [facility] Body mass index (BMI) [Ratio] 23.93 kg/m2 23.93 kg/m2 [facility] Systolic blood pressure 119 mm[Hg] 119 mm[Hg] [facility] Diastolic blood pressure 74 mm[Hg] 74 mm[Hg] [facility] Heart rate 93 /min 93 /min [facility] Body height 165.1 cm 165.1 cm [facility] Body weight 65.227 kg 65.227 kg [facility] Body mass index (BMI) [Ratio] 23.93 kg/m2 23.93 kg/m2 [facility] Oxygen saturation in Arterial blood by Pulse oximetry 99 % 99 % [facility] Heart rate 88 /min 88 /min [facility] Diastolic blood pressure 74 mm[Hg] 74 mm[Hg] [facility] Heart rate 83 /min 83 /min [facility] Respiratory rate 18 /min 18 /min [facility] Body height 165.1 cm 165.1 cm [facility] Body weight 58.968 kg 58.968 kg [facility] Body mass index (BMI) [Ratio] 21.63 kg/m2 21.63 kg/m2 [facility] Systolic blood pressure 117 mm[Hg] 117 mm[Hg] [facility] Systolic blood pressure 122 mm[Hg] 122 mm[Hg] [facility] ([facility] ) Body height 63 [in_i] 63 [in_i] [facility] ([facility]) 5'3" Body weight 155.50 [lb_av] 155.50 [lb_av] [facility] ([facility]) Body mass index (BMI) [Ratio] 27.5 kg/m2 27.5 k g/m2 [facility] ([facility] ) Diastolic blood pressure 80 mm[Hg] 80 mm[Hg] [facility] ([facility] ) Heart rate 76 /min 76 /min [facility] ([facility] ) Body temperature 97.5 [degF] 97.5 [degF] [facility] ([facility] ) Systolic blood pressure 138 mm[Hg] 138 mm[Hg] [facility] ([facility] ) Diastolic blood pressure 80 mm[Hg] 80 mm[Hg] [facility] ([facility] ) Heart rate 124 /min 124 /min [facility] ([facility] ) Body temperature 97.6 [degF] 97.6 [degF] [facility] ([facility] ) Body height 63 [in_i] 63 [in_i] [facility] ([facility] ) 5'3" Body weight 153.31 [lb_av] 153.31 [lb_av] [facility] ([facility] ) Body mass index (BMI) [Ratio] 27.2 kg/m2 27.2 k g/m2 [facility] ([facility] ) Oxygen saturation in Arterial blood by Pulse oximetry 98 % 98 % [facility] ([facility]) Body weight 150.00 [lb_av] 150.00 [lb_av] [facility] ([facility] ) Diastolic blood pressure 68 mm[Hg] 68 mm[Hg] [facility] ([facility] ) Heart rate 87 /min 87 /min [facility] ([facility] ) Oxygen saturation in Arterial blood by Pulse oximetry 98 % 98 % [facility] ([facility] ) Body mass index (BMI) [Ratio] 26.6 kg/m2 26.6 k g/m2 [facility] ([facility] ) Systolic blood pressure 108 mm[Hg] 108 mm[Hg] M EDENT ([facility]) Body temperature 97.0 [degF] 97.0 [degF] MEDENT ([facility] ) Body height 63 [in_i] 63 [in_i] MEDENT ([facility] ) 5'3" Diastolic blood pressure 86 mm[Hg] 86 mm[Hg] RAJI ([facility]) Body height 65 [in_i] 65 [in_i] RAJI ([facility]) Body mass index (BMI) [Ratio] 25.6 kg/m2 25.6 k g/m2 RAJI ([facility]) Systolic blood pressure 122 mm[Hg] 122 mm[Hg] [facility] Body weight 2466 [oz_av] 2466 [oz_av] RAJI ([facility]) Body weight 2466 [oz_av] 2466 [oz_av] RAJI ([facility]) Body height 65 [in_i] 65 [in_i] RAJI ([facility]) Body mass index (BMI) [Ratio] 25.6 kg/m2 25.6 k g/m2 RAJI ([facility]) Diastolic blood pressure 86 mm[Hg] 86 mm[Hg] RAJI ([facility]) Systolic blood pressure 122 mm[Hg] 122 mm[Hg] A [facility] ([facility]) Body mass index (BMI) [Ratio] 25.6 kg/m2 25.6 k g/m2 RAJI ([facility]) Diastolic blood pressure 86 mm[Hg] 86 mm[Hg] RAJI ([facility]) Body height 65 [in_i] 65 [in_i] RAJI ([facility]) Systolic blood pressure 122 mm[Hg] 122 mm[Hg] [facility] Body weight 2466 [oz_av] 2466 [oz_av] RAJI ([facility]) Diastolic blood pressure 86 mm[Hg] 86 mm[Hg] RAJI ([facility]) Systolic blood pressure 122 mm[Hg] 122 mm[Hg] [facility]) Body height 65 [in_i] 65 [in_i] RAJI ([facility]) Body weight 2466 [oz_av] 2466 [oz_av] RAJI ([facility]) Body mass index (BMI) [Ratio] 25.6 kg/m2 25.6 k g/m2 RAJI ([facility]) Diastolic blood pressure 86 mm[Hg] 86 mm[Hg] RAJI ([facility]) Body height 65 [in_i] 65 [in_i] RAJI ([facility]) Body mass index (BMI) [Ratio] 25.6 kg/m2 25.6 k g/m2 RAJI ([facility]) Systolic blood pressure 122 mm[Hg] 122 mm[Hg] [facility]) Body weight 2466 [oz_av] 2466 [oz_av] RAJI ([facility]) Diastolic blood pressure 86 mm[Hg] 86 mm[Hg] RAJI ([facility]) Body height 65 [in_i] 65 [in_i] RAJI ([facility]) Body mass index (BMI) [Ratio] 25.6 kg/m2 25.6 k g/m2 RAJI ([facility]) Systolic blood pressure 122 mm[Hg] 122 mm[Hg] A [facility] ([facility]) Body weight 2466 [oz_av] 2466 [oz_av] RAJI ([facility]) Diastolic blood pressure 86 mm[Hg] 86 mm[Hg] RAJI ([facility]) Diastolic blood pressure 86 mm[Hg] 86 mm[Hg] RAJI ([facility]) Body height 65 [in_i] 65 [in_i] RAJI ([facility]) Body mass index (BMI) [Ratio] 25.6 kg/m2 25.6 k g/m2 RAJI ([facility]) Systolic blood pressure 122 mm[Hg] 122 mm[Hg] A THENA ([facility]) Body weight 2466 [oz_av] 2466 [oz_av] RAJI ([facility]) Body height 65 [in_i] 65 [in_i] RAJI ([facility]) Body mass index (BMI) [Ratio] 25.6 kg/m2 25.6 k g/m2 RAJI ([facility]) Systolic blood pressure 122 mm[Hg] 122 mm[Hg] [facility]) Body weight 2466 [oz_av] 2466 [oz_av] RAJI ([facility]) Diastolic blood pressure 86 mm[Hg] 86 mm[Hg] RAJI ([facility]) Body height 65 [in_i] 65 [in_i] RAJI ([facility]) Body mass index (BMI) [Ratio] 25.6 kg/m2 25.6 k g/m2 RAJI ([facility]) Systolic blood pressure 122 mm[Hg] 122 mm[Hg] A [facility] ([facility]) Body weight 2466 [oz_av] 2466 [oz_av] RAJI ([facility]) Diastolic blood pressure 86 mm[Hg] 86 mm[Hg] RAJI ([facility]) Body height 65 [in_i] 65 [in_i] RAJI ([facility]) Body mass index (BMI) [Ratio] 25.6 kg/m2 25.6 k g/m2 RAJI ([facility]) Systolic blood pressure 122 mm[Hg] 122 mm[Hg] A [facility] ([facility]) Body weight 2466 [oz_av] 2466 [oz_av] RAJI ([facility]) Diastolic blood pressure 86 mm[Hg] 86 mm[Hg] RAJI ([facility]) Body height 65 [in_i] 65 [in_i] RAJI ([facility]) Body mass index (BMI) [Ratio] 25.6 kg/m2 25.6 k g/m2 RAJI ([facility]) Systolic blood pressure 122 mm[Hg] 122 mm[Hg] [facility]) Body weight 2466 [oz_av] 2466 [oz_av] RAJI ([facility]) Diastolic blood pressure 86 mm[Hg] 86 mm[Hg] RAJI ([facility]) Body height 65 [in_i] 65 [in_i] RAJI ([facility]) Body mass index (BMI) [Ratio] 25.6 kg/m2 25.6 k g/m2 RAJI ([facility]) Systolic blood pressure 122 mm[Hg] 122 mm[Hg] A [facility] ([facility]) Body weight 2466 [oz_av] 2466 [oz_av] RAJI ([facility]) Diastolic blood pressure 86 mm[Hg] 86 mm[Hg] RAJI ([facility]) Body height 65 [in_i] 65 [in_i] RAJI ([facility]) Body mass index (BMI) [Ratio] 25.6 kg/m2 25.6 k g/m2 RAJI ([facility]) Systolic blood pressure 122 mm[Hg] 122 mm[Hg] A THENA ([facility]) Body weight 2466 [oz_av] 2466 [oz_av] RAJI ([facility]) Diastolic blood pressure 86 mm[Hg] 86 mm[Hg] RAJI ([facility]) Body height 65 [in_i] 65 [in_i] RAJI ([facility]) Body mass index (BMI) [Ratio] 25.6 kg/m2 25.6 k g/m2 RAJI ([facility]) Systolic blood pressure 122 mm[Hg] 122 mm[Hg] A THENA ([facility]) Body weight 2466 [oz_av] 2466 [oz_av] RAJI ([facility]) Diastolic blood pressure 86 mm[Hg] 86 mm[Hg] RAJI ([facility]) Body height 65 [in_i] 65 [in_i] RAJI ([facility]) Body mass index (BMI) [Ratio] 25.6 kg/m2 25.6 k g/m2 RAJI ([facility]) Systolic blood pressure 122 mm[Hg] 122 mm[Hg] A THENA ([facility]) Body weight 2466 [oz_av] 2466 [oz_av] RAJI ([facility]) Body weight 149 [lb_av] 149 [lb_av] eCW1 ([facility]) Body height 65 [in_i] 65 [in_i] eCW1 ([facility]) Body mass index (BMI) [Ratio] 24.79 kg/m2 24.79 kg/m2 [facility] ([facility]) Systolic blood pressure 122 mm[Hg] 122 mm[Hg] e CW1 ([facility]) Diastolic blood pressure 74 mm[Hg] 74 mm[Hg] eCW1 ([facility]) Patient Treatment Plan of Care Planned Activity Planned Date Details Description Data Source (s) normal saline flush 0.9 % injection 3 mL 01/24/2021 03:00:00 PM EDT [facility] Hydroxyzine Hydrochloride 25 MG Oral Tablet 01/24/2021 02:27:31 PM EDT [facility] ondansetron (ZOFRAN) injection 4 mg 01/24/2021 02:27:31 PM EDT [facility] sodium chloride (PF) (NS) 0.9 % flush 3 mL 01/24/2021 12:23:37 PM E DT [facility] Levora 0.15/30 (28) 0.15-30 MG-MCG 07/11/2020 12:00:00 AM EDT eCW1 ([facility]) Ergocalciferol 24477 UNT Oral Capsule RAJI ([facility]) Prednisone 20 MG Oral Tablet RAJI ([facility]) Phenazopyridine hydrochloride 200 MG Oral Tablet RAJI ([facility]) NITROFURANTOIN, MACROCRYSTALS 25 MG / Ni trofurantoin, Monohydrate 75 MG Oral Capsule RAJI ([facility]) Ketorolac Tromethamine 10 MG Oral Tablet RAJI ([facility]) Ibuprofen 800 MG Oral Tablet RAJI ([facility]) Hydroxyzine Hydrochloride 25 MG Oral Tablet RAJI ([facility]) Doxycycline Monohydrate 100 MG Oral Capsule RAJI ([facility]) Cefuroxime 500 MG Oral Tablet RAJI ([facility]) Acetaminophen 300 MG / Codeine Phosphate 30 MG Oral Tablet RAJI ([facility]) Ergocalciferol [id number] UNT Oral Capsule RAJI ([facility]) Prednisone 20 MG Oral Tablet RAJI ([facility]) Phenazopyridine hydrochloride 200 MG Oral Tablet RAJI ([facility]) NITROFURANTOIN, MACROCRYSTALS 25 MG / Ni trofurantoin, Monohydrate 75 MG Oral Capsule RAJI ([facility]) Ketorolac Tromethamine 10 MG Oral Tablet RAJI ([facility]) Ibuprofen 800 MG Oral Tablet RAJI ([facility]) Hydroxyzine Hydrochloride 25 MG Oral Tablet RAJI ([facility]) Doxycycline Monohydrate 100 MG Oral Capsule RAJI ([facility]) Cefuroxime 500 MG Oral Tablet RAJI ([facility]) Acetaminophen 300 MG / Codeine Phosphate 30 MG Oral Tablet RAJI ([facility]) Ergocalciferol [id number] UNT Oral Capsule RAJI ([facility]) Prednisone 20 MG Oral Tablet RAJI ([facility]) Phenazopyridine hydrochloride 200 MG Oral Tablet RAJI ([facility]) NITROFURANTOIN, MACROCRYSTALS 25 MG / Ni trofurantoin, Monohydrate 75 MG Oral Capsule RAJI ([facility]) Ketorolac Tromethamine 10 MG Oral Tablet RAJI ([facility]) Ibuprofen 800 MG Oral Tablet RAJI ([facility]) Hydroxyzine Hydrochloride 25 MG Oral Tablet RAJI ([facility]) Doxycycline Monohydrate 100 MG Oral Capsule RAJI ([facility]) Cefuroxime 500 MG Oral Tablet RAJI ([facility]) Acetaminophen 300 MG / Codeine Phosphate 30 MG Oral Tablet RAJI ([facility]) Ergocalciferol [id number] UNT Oral Capsule RAJI ([facility]) Prednisone 20 MG Oral Tablet RAJI ([facility]) Phenazopyridine hydrochloride 200 MG Oral Tablet RAJI ([facility]) NITROFURANTOIN, MACROCRYSTALS 25 MG / Ni trofurantoin, Monohydrate 75 MG Oral Capsule RAJI ([facility]) Ketorolac Tromethamine 10 MG Oral Tablet RAJI ([facility]) Ibuprofen 800 MG Oral Tablet RAJI ([facility]) Hydroxyzine Hydrochloride 25 MG Oral Tablet RAJI ([facility]) Doxycycline Monohydrate 100 MG Oral Capsule RAJI ([facility]) Cefuroxime 500 MG Oral Tablet RAJI ([facility]) Acetaminophen 300 MG / Codeine Phosphate 30 MG Oral Tablet RAJI ([facility]) Ergocalciferol 24892 UNT Oral Capsule RAJI ([facility]) Prednisone 20 MG Oral Tablet RAJI ([facility]) Phenazopyridine hydrochloride 200 MG Oral Tablet RAJI ([facility]) NITROFURANTOIN, MACROCRYSTALS 25 MG / Ni trofurantoin, Monohydrate 75 MG Oral Capsule RAJI ([facility]) Ketorolac Tromethamine 10 MG Oral Tablet RAJI ([facility]) Ibuprofen 800 MG Oral Tablet RAJI ([facility]) Hydroxyzine Hydrochloride 25 MG Oral Tablet RAJI ([facility]) Doxycycline Monohydrate 100 MG Oral Capsule RAJI ([facility]) Cefuroxime 500 MG Oral Tablet RAJI ([facility]) Acetaminophen 300 MG / Codeine Phosphate 30 MG Oral Tablet RAJI ([facility]) Ergocalciferol [id number] UNT Oral Capsule RAJI ([facility]) Prednisone 20 MG Oral Tablet RAJI ([facility]) Phenazopyridine hydrochloride 200 MG Oral Tablet RAJI ([facility]) NITROFURANTOIN, MACROCRYSTALS 25 MG / Ni trofurantoin, Monohydrate 75 MG Oral Capsule RAJI ([facility]) Ketorolac Tromethamine 10 MG Oral Tablet RAJI ([facility]) Ibuprofen 800 MG Oral Tablet RAJI ([facility]) Hydroxyzine Hydrochloride 25 MG Oral Tablet RAJI ([facility]) Doxycycline Monohydrate 100 MG Oral Capsule RAJI ([facility]) Cefuroxime 500 MG Oral Tablet RAJI ([facility]) Acetaminophen 300 MG / Codeine Phosphate 30 MG Oral Tablet RAJI ([facility]) Ergocalciferol 19909 UNT Oral Capsule RAJI ([facility]) Prednisone 20 MG Oral Tablet RAJI ([facility]) Phenazopyridine hydrochloride 200 MG Oral Tablet RAJI ([facility]) NITROFURANTOIN, MACROCRYSTALS 25 MG / Ni trofurantoin, Monohydrate 75 MG Oral Capsule RAJI ([facility]) Ketorolac Tromethamine 10 MG Oral Tablet RAJI ([facility]) Ibuprofen 800 MG Oral Tablet RAJI ([facility]) Hydroxyzine Hydrochloride 25 MG Oral Tablet RAJI ([facility]) Doxycycline Monohydrate 100 MG Oral Capsule RAJI ([facility]) Cefuroxime 500 MG Oral Tablet RAJI ([facility]) Acetaminophen 300 MG / Codeine Phosphate 30 MG Oral Tablet RAJI ([facility]) Ibuprofen 800 MG Oral Tablet RAJI ([facility]) Hydroxyzine Hydrochloride 25 MG Oral Tablet RAJI ([facility]) Cefuroxime 500 MG Oral Tablet RAJI ([facility]) Acetaminophen 300 MG / Codeine Phosphate 30 MG Oral Tablet RAJI ([facility]) Ibuprofen 800 MG Oral Tablet RAJI ([facility]) Hydroxyzine Hydrochloride 25 MG Oral Tablet RAJI ([facility]) Cefuroxime 500 MG Oral Tablet RAJI ([facility]) Acetaminophen 300 MG / Codeine Phosphate 30 MG Oral Tablet RAJI ([facility]) Ibuprofen 800 MG Oral Tablet RAJI ([facility]) Hydroxyzine Hydrochloride 25 MG Oral Tablet RAJI ([facility]) Cefuroxime 500 MG Oral Tablet RAJI ([facility]) Acetaminophen 300 MG / Codeine Phosphate 30 MG Oral Tablet RAJI ([facility]) Ibuprofen 800 MG Oral Tablet RAJI ([facility]) Hydroxyzine Hydrochloride 25 MG Oral Tablet RAJI ([facility]) Cefuroxime 500 MG Oral Tablet RAJI ([facility]) Acetaminophen 300 MG / Codeine Phosphate 30 MG Oral Tablet RAJI ([facility]) Ibuprofen 800 MG Oral Tablet RAJI ([facility]) Hydroxyzine Hydrochloride 25 MG Oral Tablet RAJI ([facility]) Cefuroxime 500 MG Oral Tablet RAJI ([facility]) Acetaminophen 300 MG / Codeine Phosphate 30 MG Oral Tablet RAJI ([facility]) Ibuprofen 800 MG Oral Tablet RAJI ([facility]) Hydroxyzine Hydrochloride 25 MG Oral Tablet RAJI ([facility]) Cefuroxime 500 MG Oral Tablet RAJI ([facility]) Acetaminophen 300 MG / Codeine Phosphate 30 MG Oral Tablet RAJI ([facility]) Ibuprofen 800 MG Oral Tablet RAJI ([facility]) Hydroxyzine Hydrochloride 25 MG Oral Tablet RAJI ([facility]) Cefuroxime 500 MG Oral Tablet RAJI ([facility]) Acetaminophen 300 MG / Codeine Phosphate 30 MG Oral Tablet RAJI ([facility]) Ibuprofen 800 MG Oral Tablet RAJI ([facility]) Hydroxyzine Hydrochloride 25 MG Oral Tablet RA[facility]I ([facility]) Cefuroxime 500 MG Oral Tablet RAJI ([facility]) Acetaminophen 300 MG / Codeine Phosphate 30 MG Oral Tablet RAJI ([facility])
== END 2021-08-04 06:00 | disposition home or self-care (01) ==
LOC: M ED 01:40
DX: J02.8 Acute pharyngitis due to other specified organisms (principal); J45.909 Unspecified asthma, uncomplicated; Z88.2 Allergy status to sulfonamides; Z85.850 Personal history of malignant neoplasm of thyroid

== ENCOUNTER → 2021-09-02 | Outpatient (CLI) | payer OTHER ==
[2021-09-02 12:35] LABS: FREE T4 0.89 NG/DL (0.76-1.46); THYROID STIMULATING HORMONE 1.79 uIU/ML (0.358-3.740)
== END ==
LOC: M LAB 11:12
PROVIDERS: ATTEND Nurse Practitioner Family
DX: E04.2 Nontoxic multinodular goiter (principal)

== ENCOUNTER 2021-09-29 02:34 | Emergency (ER) | payer OTHER ==
[~2021-09-29] VITALS: Ht 165.1 cm; Wt 68.2 kg
[2021-09-29 02:35] VITALS: BP 122/71
== END 2021-09-29 06:48 | disposition left against medical advice (07) ==
LOC: M ED 02:34
DX: Z53.21 Procedure and treatment not carried out due to patient leaving prior to being seen by health care provider (principal)

== ENCOUNTER 2022-01-21 23:25 | Emergency (ER) | payer MEDICAID, OTHER ==
[~2022-01-21] VITALS: Ht 165.1 cm; Wt 71.0 kg
[2022-01-21 23:27] VITALS: BP 112/76
== END 2022-01-22 01:11 | disposition left against medical advice (07) ==
LOC: M ED 23:25
DX: Z53.9 Procedure and treatment not carried out, unspecified reason (principal)

== ENCOUNTER → 2022-05-30 | Outpatient (CLI) | payer OTHER ==
[2022-05-30 13:09] LABS: FREE T4 0.96 NG/DL (0.76-1.46); THYROID STIMULATING HORMONE 3.98 uIU/ML (0.358-3.740)
== END ==
LOC: M LAB 11:28
PROVIDERS: ATTEND Internal Medicine Endocrinology, Diabetes & Metabolism
DX: C73 Malignant neoplasm of thyroid gland (principal)